=== PATIENT | male | born 2000 | race Caucasian/White ===

== ENCOUNTER 2020-08-16 11:16 | Emergency (ER) | payer MEDICAID, SELFPAY ==
--- NOTE | 2020-08-16 | CT_ITS ---
EXAMINATION: CT ABDOMEN AND PELVIS WITH CONTRAST CLINICAL INFORMATION: Periumbilical pain, nausea and vomiting diarrhea; history of Crohn's disease. COMPARISON: CT abdomen and pelvis dated 07/27/2009 TECHNIQUE: Multidetector volumetric images were obtained from the superior aspect of the liver through the pubic symphysis following administration 85 mL of Omnipaque 350 intravenous contrast. Sagittal and coronal reformatted images were obtained on the technologist's workstation. Oral contrast: No This CT examination was performed using dose optimization techniques as appropriate, variously including the following: *Automated exposure control *Adjustment of mA and/or kV according to patient size (this includes techniques or standardized protocols for targeted exams where dose is matched to indication/reason for exam; i.e. extremities or head) *Use of iterative reconstruction technique DLP: 296 mGy-cm FINDINGS: LUNG BASES: The visualized lung bases are unremarkable. LIVER, GALLBLADDER, AND BILIARY TREE: The liver is normal in size, shape, and attenuation. There is a Cari's lobe configuration. No focal hepatic lesion or biliary ductal dilatation is present. The gallbladder is unremarkable with no evidence of radiopaque gallstones, gallbladder wall thickening, or obvious pericholecystic inflammatory changes. PANCREAS: Unremarkable. SPLEEN: Unremarkable. ADRENAL GLANDS: Unremarkable. KIDNEYS AND URETERS: The kidneys are normal in size, shape, and attenuation. No hydronephrosis, hydroureter, or calculi seen. No perinephric stranding. BLADDER: Decompressed and otherwise unremarkable. GASTROINTESTINAL TRACT: There is wall thickening of a proximal small bowel bowel loop in the right upper quadrant. A nonobstructing small bowel intussusception is seen within the right abdomen (3:53, 5:35 and 6:91). There is mild wall thickening of the terminal ileum. No sameer obstruction or ileus is seen. There is no abscess or free intraperitoneal air. ABDOMINAL WALL: No significant hernia is appreciated. LYMPH NODES: There are multiple shotty, nonpathologically enlarged mesenteric lymph nodes. No sizable abdominopelvic lymphadenopathy is seen. VASCULAR: Unremarkable. PELVIC VISCERA: The prostate and seminal vesicles are unremarkable. There is a very small amount of free fluid within the pelvis. OSSEOUS STRUCTURES: Unremarkable. IMPRESSION: Consistent with the provided history of Crohn's disease, there is wall thickening of the terminal ileum and of a mid small bowel loop within the right abdomen. A nonobstructing small bowel intussusception associated with this focal mid small bowel wall thickening. No obstruction, ileus, abscess or free intraperitoneal air is seen. There are shotty, nonpathologically enlarged mesenteric lymph nodes. A small amount of free fluid is seen within the dependent pelvis.
[2020-08-16 11:31] VITALS: BP 104/51; PULSE 81; RESP 18; TEMP 36.7; O2SAT 98; BMI 17.6
[2020-08-16 12:00] VITALS: BP 108/62; PULSE 82; RESP 18; TEMP 36.8; O2SAT 98
[2020-08-16] MEDS: 0.9 % Sodium Chloride 1,000 ML 999 ML IVCONT (12:30)
[2020-08-16 12:51] LABS: MANUAL DIFF FLAG NO
[2020-08-16 13:02] LABS: Basophils Absolute Auto 0.1 X10*3/uL (0.0-0.2); Basophils Percent Auto 0.6 % (0-2); Eosinophils Absolute Auto 0.1 X10*3/uL (0.0-0.4); Eosinophils Percent Auto 1.4 % (0-4); Imm Gran Abs Auto 0.02 X10*3/uL (0.00-0.03); Imm Gran Pct Auto 0.2 % (0.0-0.4); Lymphocytes Absolute Auto 1.7 X10*3/uL (1.2-4.9); Lymphocytes Percent Auto 21.1 % (20-40); Mean Corpuscular Hemoglobin 28.4 pg (27.0-33.0); Mean Corpuscular Volume 86.1 fL (80-98); Monocytes Absolute Auto 0.8 X10*3/uL (0.1-1.2); Monocytes Percent Auto 9.9 % (2-11); Neutrophils Absolute Auto 5.4 X10*3/uL (2.0-8.3); Neutrophils Percent Auto 66.8 % (45-73); Platelet Count 383 X10*3/uL (160-400); Red Cell Distribution Width 12.1 % (11.0-16.0)
[2020-08-16] MEDS: Ketorolac Tromethamine 15 MG/ML VIAL IV ×2 (13:03→13:04)
[2020-08-16] MEDS: ondansetron HCL 4 MG/2 ML VIAL IVPUSH (13:04)
[2020-08-16 13:12] LABS: INTERNATIONAL NORM RATIO 1.2 (0.9-1.1)
[2020-08-16 13:27] LABS: Alanine Aminotransferase 6 U/L (0-40); Albumin Level 4.1 g/dL (3.5-5.0); Alkaline Phosphatase 60 U/L (39-117); Anion Gap 11 (12-20); Aspartate Amino Transferase 10 U/L (5-37); Bilirubin Direct < 0.2 mg/dL (0.0-0.5); Bilirubin Total 0.3 mg/dL (0.0-1.0); Blood Urea Nitrogen 14 mg/dL (9-16); Calcium 9.3 mg/dL (8.4-10.2); Carbon Dioxide 30 mmol/L (22-29); Chloride 103 mmol/L (96-108); Creatinine Clr Calc Pharmacy 106.2; Estimated Glomerular Filt Rate > 60; Glucose Random 82 mg/dL (60-115); Sodium 140 mmol/L (135-145); Total Protein 7.4 g/dL (6.5-8.0)
[2020-08-16] MEDS: iohexoL 350 MG/ML 100 ML INFUS..BTL IV (13:41)
[2020-08-16 13:50] LABS: Glucose Urine UA NEG (NEG); Leukocyte Esterase Urine NEG (NEG); Nitrite Urine NEG (NEG); Urine Blood NEG (NEG); Urine Ketones NEG (NEG); Urine Protein NEG (NEG-TRACE)
[2020-08-16 13:53] LABS: Appearance Urine CLEAR; Color Urine YELLOW
[2020-08-16 13:59] VITALS: BP 115/62; PULSE 84; TEMP 36.8; O2SAT 100
[2020-08-16 14:04] LABS: Mucus Urine 2+ /LPF; RBC Urine 0 /HPF (0); Squamous Epithelial Cell Urine 1+ /LPF; WBC Urine 0 /HPF (0-4)
--- NOTE | 2020-08-16 14:07 | ED_ITS ---
HPI - Abdominal Pain General Chief Complaint: Abdominal Pain Stated Complaint: abd pain diarrhea Time Seen by Provider: 08/16/20 11:51 Source: patient Mode of arrival: ambulatory Limitations: no limitations History of Present Illness HPI narrative: 19yoM c PMHx of Crohn's disease presenting to the ED c c/o periumbilical abdominal pain with associated nausea /vomiting / diarrhea for approximately 1 week with associated weight loss and decreased appetite. Reports she stopped receiving her Remicade infusions by Dr. romo her GI specialist due to she wants a new GI specialist. Denies any fevers, cough, CP/SOB, back pain, hematuria, dysuria or abnormal discharge. Related Data Previous Rx's Medication Instructions Recorded ondansetron HCl [Zofran] 4 mg PO Q8H PRN #10 tab 08/16/20 oxycodone-acetaminophen [Percocet] 1 tab PO Q6H PRN #10 tab 08/16/20 prednisone 40 mg PO DAILY 5 Days #10 tab 08/16/20 Allergies Allergy/AdvReac Type Severity Reaction Status Date / Time peach [PEACH] Allergy Severe ITCHY Unverified 07/25/20 16:52 THROAT pear [PEAR] Allergy Severe ITCHY Unverified 07/25/20 16:52 THROAT plum [PLUM] Allergy Severe ITCHY Unverified 07/25/20 16:52 THROAT apples Allergy Unknown Uncoded 11/24/13 00:00 peaches Allergy Unknown Uncoded 11/24/13 00:00 pears Allergy Unknown Uncoded 11/24/13 00:00 plums Allergy Unknown Uncoded 11/24/13 00:00 seasonal Allergy Unknown Uncoded 11/24/13 00:00 Review of Systems Review of Systems Yes all other systems are reviewed and are negative Constitutional: Reports as per HPI, Denies anorexia, Denies body ache(s), Denies chills, Denies fatigue, Denies fever(s), Denies headache(s), Denies poor appetite, Denies weakness, Denies weight gain and Reports weight loss Eyes: Reports as per HPI Reports as per HPI, Denies dizziness, Denies headache(s) and Denies neck pain Cardiovascular: Reports as per HPI, Denies chest pain and Denies dyspnea Respiratory: Reports as per HPI, Denies cough and Denies dyspnea Gastrointestinal: Reports as per HPI, Reports abdominal pain, Denies melena, Denies hematochezia, Denies coffee ground emesis, Denies constipation, Reports diarrhea, Denies loose stools, Reports nausea, Reports vomiting and Denies hematemesis Genitourinary: Reports as per HPI, Denies hematuria, Denies difficulty urinating, Denies genital lesions, Denies genital pain, Denies flank pain, Denies urinary frequency, Denies urinary hesitancy and Denies urinary urgency Musculoskeletal: Reports as per HPI, Denies neck pain, Denies numbness and Denies tingling Skin/Breast: Reports as per HPI Reports as per HPI, Denies dizziness, Denies headache(s), Denies numbness, Denies tingling and Denies weakness Psychiatric: Reports as per HPI Endocrine: Reports as per HPI and Denies fatigue Hematologic/Lymphatic: Reports as per HPI Allergic/Immunologic: Reports as per HPI Physical Exam Vital Signs and I&O and Narrative: Vital Signs and I&O: Vital Signs Temp 98.2 F 08/16/20 13:59 Pulse 84 08/16/20 13:59 Resp 18 08/16/20 12:00 BP 115/62 08/16/20 13:59 Pulse Ox 100 08/16/20 13:59 Intake & Output 08/15/20 08/16/20 08/16/20 18:59 06:59 18:59 Intake Total 1000 / 1000 Balance 1000 / 1000 Weight 51.219 kg Intake: Intake, IV Amoun t 1000 / 1000 0.9 % Sodium C hloride 1,000 ml 1000 / 1000 @ 999 mls/hr I VCONT .Q1H1M [facility] Rx#:[id number] Body Mass Index 17.6 Const: General: cooperative, healthy appearing, comfortable, no acute distress, well developed, alert, awake and Physically active Nutritional Appearance: average body habitus and well nourished Orientation/consciousness: patient oriented x3 Limitations: no limitations HENMT: Head: Yes normal to inspection, Yes No palpable skull fracture present, Yes normocephalic and Yes atraumatic Ears: hearing grossly normal bilaterally General nose exam: Normal external nose present Face and sinus : Yes normal facial exam Mouth: moist mucous membranes Eyes: General: appearance normal, both eyes and all related structures Visual Hayden: normal visual hayden by confrontation Alignment and Position: alignment normal Periorbital: periorbital findings normal Eyelids: Yes eyelids normal Conjunctivae: conjunctivae normal Sclerae: sclerae normal Pupils: Equal, round and reactive pupils present EOM: EOMs intact bilaterally Neck: Neck: Yes normal visual inspection, Yes full ROM, Yes no lymphadenopathy, Yes no meningeal signs, Yes trachea midline and Yes supple Chest: Chest palpation & inspection: normal inspection of the chest Resp: Effort & Inspection: normal respiratory effort and able to speak in complete sentences Auscultation: clear to auscultation bilaterally, no crackles, no rales, no rhonchi and no wheezes Cardio: Rate: regular rate Rhythm: regular rhythm Heart sounds: S1 normal heart sound present and S2 normal heart sound present Peripheral pulses: Peripheral pulses 2+ throughout GI: Inspection: Yes normal to inspection Palpation (GI): Soft to palpation, nontender (PeriUmbilical aspect) and No hepatosplenomegaly present Percussion: Yes normal to percussion Auscultation: normal bowel sounds : General: Yes no CVA tenderness Back/Spine/Pelvis: Back: no CVA tenderness Cervical Spine: normal cervical lordosis and cervical ROM normal Thoracic/Lumbar Spine: thoracic and lumbar spine normal to inspection and thoraco-lumbar ROM normal Skin: General skin exam: no rashes or lesions noted, elasticity normal and turgor normal Trauma: no lacerations or abrasions Wounds: no wounds Hair: normal Nails: normal Neuro: General: patient oriented x3 and no meningeal signs Cranial nerves: Yes CN's II-XII intact bilaterally and Yes Equal, round and reactive pupils present Cognition (Neuro): normal cognition Gait exam (Neuro): Normal gait present Motor exam (neuro): 5/5 motor strength present throughout Extrem: General: Yes normal to inspection, Yes full ROM, Yes capillary refill normal, Yes no clubbing, cyanosis or edema, No no pedal edema, No no calf tenderness, Yes normal gait and No edema Right upper extremity: normal to inspection, full ROM and normal capillary refill; no edema Left upper extremity: normal to inspection, full ROM and normal capillary refill; no edema Right lower extremity: normal to inspection, full ROM and normal capillary refill; no edema Left lower extremity: normal to inspection, full ROM and normal capillary refill; no edema Psych: Appearance: grossly normal and well kempt Mental Status: mental status grossly normal Speech and movement: Normal speech and movement present and Clear speech present Affect: normal affect Attitude: cooperative T hought process: Normal thought process present Thought content: Normal thought content present Insight: Good insight present (Psych) Judgement: Good judgement present (Psych) Course Course Course Narrative: Labs within normal limits. CT scan consistent with Crohn's disease no signs of obstruction therefore will DC home with referral to Dr. Brandt along with symptomatic treatment and start her on a short course of steroids instructions return if any new or worsening symptoms. Patient understands agrees with this plan. MDM - Abdominal Pain MDM Narrative Medical decision making narrative: 19yoM c PMHx of Crohn's disease presenting to the ED c c/o periumbilical abdominal pain with associated nausea /vomiting / diarrhea for approximately 1 week with associated weight loss and decreased appetite. Reports she stopped receiving her Remicade infusions by Dr. romo her GI specialist due to she wants a new GI specialist. Denies any fevers, cough, CP/SOB, back pain, hematuria, dysuria or abnormal discharge. - Concern for Crohn's versus perforation vs Bowel obstruction - Plan: Labs, CT scan of abd/pelvis c IV contrast. Provide IVF's, 15mg of toradol and 4 mg of zofran then re-evaluated. Lab Data Result diagrams: 08/16/20 12:42 08/16/20 12:42 Labs: Lab Results 08/16/20 08/16/20 08/16/20 Range/Units 12:42 12:42 12:42 WBC 8.0 (4.8-10.8) X10*3/uL RBC 4.16 L (4.60-5.80) X10*6/uL Hgb 11.8 L (14.0-18.0) g/dl Hct 35.8 L (42-52) % MCV 86.1 (80-98) fL MCH 28.4 (27.0-33.0) pg MCHC 33.0 (31.0-36.0) g/dl RDW 12.1 (11.0-16.0) % Plt Count 383 (160-400) X10*3/uL MPV 9.9 (9.4-12.4) fL Immature Gran % (Auto) 0.2 (0.0-0.4) % Neut % (Auto) 66.8 (45-73) % Lymph % (Auto) 21.1 (20-40) % Merrick % (Auto) 9.9 (2-11) % Eos % (Auto) 1.4 (0-4) % Baso % (Auto) 0.6 (0-2) % Lymph # (Auto) 1.7 (1.2-4.9) X10*3/uL Merrick # (Auto) 0.8 (0.1-1.2) X10*3/uL Eos # (Auto) 0.1 (0.0-0.4) X10*3/uL Baso # (Auto) 0.1 (0.0-0.2) X10*3/uL Abs Immat Gran (auto) 0.02 (0.00-0.03) X10*3/uL Absolute Neuts (auto) 5.4 (2.0-8.3) X10*3/uL Absolute Nucleated RBC 0.000 (0.0-0.012) X10*3/uL Nucleated RBC % (auto) 0.0 (0.0-0.2) /100WBC PT 14.0 H (10.8-13.0) SEC INR 1.2 H (0.9-1.1) Sodium 140 (135-145) mmol/L Potassium 4.0 (3.3-5.1) mmol/l Chloride 103 (96-108) mmol/L Carbon Dioxide 30 H (22-29) mmol/L Anion Gap 11 L (12-20) BUN 14 (9-16) mg/dL Creatinine 0.81 (0.5-1.4) mg/dL Estim Creat Clear Calc 106.2 Estimated GFR > 60 Random Glucose 82 (60-115) mg/dL Calcium 9.3 (8.4-10.2) mg/dL Total Bilirubin 0.3 (0.0-1.0) mg/dL Direct Bilirubin < 0.2 (0.0-0.5) mg/dL AST 10 (5-37) U/L ALT 6 (0-40) U/L Alkaline Phosphatase 60 (39-117) U/L Total Protein 7.4 (6.5-8.0) g/dL Albumin 4.1 (3.5-5.0) g/dL Urine Color Urine Appearance Urine pH (5.0-8.0) Ur Specific [place] (1.005-1.025) Urine Protein (NEG-TRACE) MG/DL Urine Glucose (UA) (NEG) MG/DL Urine Ketones (NEG) MG/DL Urine Blood (NEG) Urine Nitrite (NEG) Ur Leukocyte Esterase (NEG) Urine RBC (0) /HPF Urine WBC (0-4) /HPF Ur Squamous Epith Cells /LPF Urine Bacteria /LPF Urine Mucus /LPF 08/16/20 Range/Units 13:22 WBC (4.8-10.8) X10*3/uL RBC (4.60-5.80) X10*6/uL Hgb (14.0-18.0) g/dl Hct (42-52) % MCV (80-98) fL MCH (27.0-33.0) pg MCHC (31.0-36.0) g/dl RDW (11.0-16.0) % Plt Count (160-400) X10*3/uL MPV (9.4-12.4) fL Immature Gran % (Auto) (0.0-0.4) % Neut % (Auto) (45-73) % Lymph % (Auto) (20-40) % Merrick % (Auto) (2-11) % Eos % (Auto) (0-4) % Baso % (Auto) (0-2) % Lymph # (Auto) (1.2-4.9) X10*3/uL Merrick # (Auto) (0.1-1.2) X10*3/uL Eos # (Auto) (0.0-0.4) X10*3/uL Baso # (Auto) (0.0-0.2) X10*3/uL Abs Immat Gran (auto) (0.00-0.03) X10*3/uL Absolute Neuts (auto) (2.0-8.3) X10*3/uL Absolute Nucleated RBC (0.0-0.012) X10*3/uL Nucleated RBC % (auto) (0.0-0.2) /100WBC PT (10.8-13.0) SEC INR (0.9-1.1) Sodium (135-145) mmol/L Potassium (3.3-5.1) mmol/l Chloride (96-108) mmol/L Carbon Dioxide (22-29) mmol/L Anion Gap (12-20) BUN (9-16) mg/dL Creatinine (0.5-1.4) mg/dL Estim Creat Clear Calc Estimated GFR Random Glucose (60-115) mg/dL Calcium (8.4-10.2) mg/dL Total Bilirubin (0.0-1.0) mg/dL Direct Bilirubin (0.0-0.5) mg/dL AST (5-37) U/L ALT (0-40) U/L Alkaline Phosphatase (39-117) U/L Total Protein (6.5-8.0) g/dL Albumin (3.5-5.0) g/dL Urine Color YELLOW Urine Appearance CLEAR Urine pH 7.0 (5.0-8.0) Ur Specific Acton 1.020 (1.005-1.025) Urine Protein NEG (NEG-TRACE) MG/DL Urine Glucose (UA) NEG (NEG) MG/DL Urine Ketones NEG (NEG) MG/DL Urine Blood NEG (NEG) Urine Nitrite NEG (NEG) Ur Leukocyte Esterase NEG (NEG) Urine RBC 0 (0) /HPF Urine WBC 0 (0-4) /HPF Ur Squamous Epith Cells 1+ /LPF Urine Bacteria NONE /LPF Urine Mucus 2+ /LPF Discharge Plan Discharge Clinical Impression: Crohn's disease Patient Disposition: Home, Self-Care Instructions: Crohn Disease (ED) Prescriptions: New oxycodone-acetaminophen [Percocet] 5-325 mg tablet 1 tab PO Q6H PRN (Reason: pain) Qty: 10 RF: 0 prednisone 20 mg tablet 40 mg PO DAILY 5 Days Qty: 10 RF: 0 ondansetron HCl [Zofran] 4 mg tablet 4 mg PO Q8H PRN (Reason: nausea and vomiting) Qty: 10 RF: 0 Referrals: Ariadna Tristan MD [Primary Care Provider] - Cindy Brandt MD [Physician] - 2 days Stand Alone Forms: Work/School Release Print Language: Tamazight [facility] Past Medical History Medical History Crohn's disease Surgical History History of colonoscopy Social History Social History Alcohol intake: current Alcohol intake frequency: holidays/special occasions only Smoking Status: Never smoker Use of substances other than those prescribed or required for medical reasons: No Advance Directives: No Advance Directives Information Provided: No
[2020-08-16 16:13] VITALS: BP 107/68; PULSE 88; RESP 16; TEMP 37.7; O2SAT 99
[2021-10-21 13:14] LABS: Hemoglobin 11.8 g/dl (12.0-16.0); Red Blood Count 4.16 X10*6/uL (4.20-5.50)
[2021-10-21 13:15] LABS: Hematocrit 35.8 % (37-47); Mean Platelet Volume 9.9 fL (9.4-12.3)
== END 2020-08-16 16:14 | disposition home or self-care (01) ==
PROVIDERS: Physician Assistant Medical; Emergency Provider Internal Medicine; PCP Family Medicine
DX: R10.9 Unspecified abdominal pain (principal); R19.7 Diarrhea, unspecified
CPT/HCPCS: 36415; 74177; 80048; 80076; 81001; 85025; 85610; 96361; 96374; 96375; 99284; J1885; J2405

== ENCOUNTER → 2020-08-27 14:02 | Outpatient (BNVA) | payer MEDICAID, SELFPAY | PROVIDERS: PCP Family Medicine; Referring Provider Family Medicine; Visit Provider Internal Medicine Gastroenterology | DX: K50.80 Crohn's disease of both small and large intestine without complications (principal) | CPT/HCPCS: 99204 ==

== ENCOUNTER 2020-08-29 15:47 | Outpatient (REF) | payer MEDICAID, SELFPAY | END 2020-08-29 15:48 | disposition home or self-care (01) | LOC: HO.LAB 15:47 | PROVIDERS: PCP Family Medicine; Visit Provider Internal Medicine Gastroenterology | DX: Z13.89 Encounter for screening for other disorder (principal) ==

== ENCOUNTER 2020-09-03 17:16 | Outpatient (REF) | payer MEDICAID, SELFPAY ==
[2020-09-03 18:05] LABS: MANUAL DIFF FLAG NO
[2020-09-03 18:07] LABS: Basophils Absolute Auto 0.1 X10*3/uL (0.0-0.2); Basophils Percent Auto 0.6 % (0-2); Eosinophils Absolute Auto 0.1 X10*3/uL (0.0-0.4); Eosinophils Percent Auto 0.5 % (0-4); Imm Gran Abs Auto 0.03 X10*3/uL (0.00-0.03); Imm Gran Pct Auto 0.3 % (0.0-0.4); Lymphocytes Absolute Auto 1.7 X10*3/uL (1.2-4.9); Lymphocytes Percent Auto 17.3 % (20-40); Mean Corpuscular Hemoglobin 27.7 pg (27.0-33.0); Mean Corpuscular Volume 85.3 fL (80-98); Monocytes Absolute Auto 0.6 X10*3/uL (0.1-1.2); Monocytes Percent Auto 5.6 % (2-11); Neutrophils Absolute Auto 7.6 X10*3/uL (2.0-8.3); Neutrophils Percent Auto 75.7 % (45-73); Platelet Count 450 X10*3/uL (160-400); Red Cell Distribution Width 12.5 % (11.0-16.0)
[2020-09-03 18:42] LABS: Albumin Level 4.1 g/dL (3.5-5.0); Alkaline Phosphatase 63 U/L (39-117); Anion Gap 15 (12-20); Bilirubin Total 0.3 mg/dL (0.0-1.0); Blood Urea Nitrogen 16 mg/dL (9-16); C Reactive Protein 9.45 mg/dL (< or = 0.50); Calcium 9.2 mg/dL (8.4-10.2); Carbon Dioxide 27 mmol/L (22-29); Chloride 102 mmol/L (96-108); Estimated Glomerular Filt Rate > 60; Glucose Random 128 mg/dL (60-115); Sodium 140 mmol/L (135-145); Total Protein 7.8 g/dL (6.5-8.0)
[2020-09-03 18:59] LABS: Vitamin B12 855 pg/mL (200-900)
[2020-09-04 08:46] LABS: HBsAGNum1 0.11 S/CO (0.00-0.99); HIV AB/AG Nonreactive (Nonreactive); HIV Num 1 0.27 S/CO (0.00-0.99); Hepatitis B Surface Antigen Negative (Negative)
[2020-09-04 09:29] LABS: HBc Num1 0.09 S/CO (0.00-0.79); Hepatitis B Core Antibody Nonreactive (Nonreactive); ~HepC Num1 0.33 S/CO (0.00-0.79); ~Hepatitis A Antibody IgM Nonreactive (Nonreactive); ~Hepatitis C Antibody Nonreactive (Nonreactive)
[2020-09-04 11:19] LABS: HBS Num3 11.05 mIU/mL (0-7.99); ~Hepatitis B Surface Antibody GRAYZONE (Nonreactive)
[2020-09-07 15:27] LABS: Nicotinamide <20 ng/mL; Vit B3 - Nicotinic Acid <20 ng/mL
[2020-09-08 13:36] LABS: Vitamin B1 12 nmol/L (8-30)
[2020-09-08 14:21] LABS: Vitamin B6 9.8 ng/mL (2.1-21.7)
[2020-09-08 17:27] LABS: Zinc 58 mcg/dL (60-130)
[2020-09-09 13:16] LABS: Vitamin B5 (Pantothenic Acid) 41 ng/mL (<275)
[2020-09-11 21:48] LABS: Vitamin A 29 mcg/dL (26-72)
[2021-10-21 13:24] LABS: Erythrocyte Sedimentation Rate 83 MM/HR (0-20)
[2021-10-21 13:25] LABS: Hematocrit 36.7 % (37-47); Hemoglobin 11.9 g/dl (12.0-16.0)
[2021-10-21 13:26] LABS: Mean Corpuscular HGB Conc 32.4 g/dl (31.0-35.0); Mean Platelet Volume 10.2 fL (9.4-12.3)
[2021-10-21 13:28] LABS: Alanine Aminotransferase < 6 U/L (0-31); Aspartate Amino Transferase 11 U/L (5-31)
== END 2020-09-03 17:17 | disposition home or self-care (01) ==
LOC: HO.LAB 17:16
PROVIDERS: PCP Family Medicine; Visit Provider Internal Medicine Gastroenterology
DX: K50.90 Crohn's disease, unspecified, without complications (principal)
CPT/HCPCS: 36415; 80053; 82607; 84207; 84425; 84590; 84591; 84630; 85025; 85652; 86140; 86704; 86706; 86709; 86803; 87340; 87389

== ENCOUNTER → 2020-09-19 12:57 | Outpatient (BNVA) | payer MEDICAID, SELFPAY | PROVIDERS: PCP Family Medicine; Referring Provider Family Medicine; Visit Provider Internal Medicine Gastroenterology | DX: Z76.89 Persons encountering health services in other specified circumstances (principal) ==

== ENCOUNTER → 2020-09-19 12:57 | Outpatient (BNVA) | payer MEDICAID, SELFPAY | PROVIDERS: PCP Family Medicine; Referring Provider Family Medicine; Visit Provider Internal Medicine Gastroenterology | DX: K50.80 Crohn's disease of both small and large intestine without complications (principal); Z79.899 Other long term (current) drug therapy | CPT/HCPCS: 99212 ==

== ENCOUNTER → 2020-11-18 09:21 | Outpatient (BNVA) | payer MEDICAID, SELFPAY | PROVIDERS: PCP Family Medicine; Visit Provider Internal Medicine Gastroenterology | DX: Z76.89 Persons encountering health services in other specified circumstances (principal) ==

== ENCOUNTER 2020-12-06 11:46 | Outpatient (REF) | payer MEDICAID, SELFPAY ==
[2020-12-06 12:46] LABS: MANUAL DIFF FLAG NO
[2020-12-06 12:55] LABS: Basophils Percent Auto 0.6 % (0-2); Eosinophils Absolute Auto 0.1 X10*3/uL (0.0-0.4); Eosinophils Percent Auto 1.4 % (0-4); Hematocrit 38.8 % (42-52); Hemoglobin 12.7 g/dl (14.0-18.0); Imm Gran Abs Auto 0.01 X10*3/uL (0.00-0.03); Imm Gran Pct Auto 0.2 % (0.0-0.4); Mean Corpuscular HGB Conc 32.7 g/dl (31.0-36.0); Mean Corpuscular Hemoglobin 28.2 pg (27.0-33.0); Monocytes Absolute Auto 0.4 X10*3/uL (0.1-1.2); Monocytes Percent Auto 6.8 % (2-11); Platelet Count 349 X10*3/uL (160-400); Red Blood Count 4.51 X10*6/uL (4.60-5.80); Red Cell Distribution Width 13.8 % (11.0-16.0); White Blood Count 6.5 X10*3/uL (4.8-10.8)
[2020-12-06 13:47] LABS: Alanine Aminotransferase 8 U/L (0-40); Albumin Level 4.2 g/dL (3.5-5.0); Alkaline Phosphatase 70 U/L (39-117); Anion Gap 14 (12-20); Aspartate Amino Transferase 15 U/L (5-37); Bilirubin Total 0.4 mg/dL (0.0-1.0); Blood Urea Nitrogen 13 mg/dL (9-16); Calcium 9.5 mg/dL (8.4-10.2); Carbon Dioxide 27 mmol/L (22-29); Chloride 102 mmol/L (96-108); Estimated Glomerular Filt Rate > 60; Glucose Random 71 mg/dL (60-115); Potassium 4.4 mmol/L (3.3-5.1); Sodium 139 mmol/L (135-145); Total Protein 7.8 g/dL (6.5-8.0)
[2020-12-09 16:07] LABS: TS Negative Control Passed; TS Panel A 0; TS Panel B 0; TS Positive Control Passed; TSpotTB Negative (SeeBelow)
[2020-12-10 13:37] LABS: Zinc 70 mcg/dL (60-130)
== END 2020-12-06 11:47 | disposition home or self-care (01) ==
LOC: HO.LAB 11:46
PROVIDERS: PCP Family Medicine; Visit Provider Internal Medicine Gastroenterology
DX: K50.90 Crohn's disease, unspecified, without complications (principal)
CPT/HCPCS: 36415; 80053; 84630; 85025; 86140; 86481

== ENCOUNTER 2020-12-21 14:25 | Emergency (ER) | payer MEDICAID, SELFPAY ==
[2020-12-21 14:59] VITALS: BP 101/65; PULSE 87; RESP 16; TEMP 36.6; O2SAT 100; BMI 19.5
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
== END 2020-12-21 15:49 | disposition home or self-care (01) ==
PROVIDERS: Emergency Provider Emergency Medicine Emergency Medical Services; PCP Family Medicine
DX: S00.05XA Superficial foreign body of scalp, initial encounter (principal); X58.XXXA Exposure to other specified factors, initial encounter; Y93.E1 Activity, personal bathing and showering; Y92.012 Bathroom of single-family (private) house as the place of occurrence of the external cause; Y99.9 Unspecified external cause status
CPT/HCPCS: 99283

== ENCOUNTER → 2020-12-31 11:24 | Outpatient (BNVA) | payer MEDICAID, SELFPAY | PROVIDERS: PCP Family Medicine; Visit Provider Internal Medicine Gastroenterology ==

== ENCOUNTER 2021-02-12 22:02 | Emergency (ER) | payer MEDICAID, SELFPAY ==
[2021-02-12 22:22] VITALS: BP 91/54; PULSE 95; RESP 18; TEMP 36.8; O2SAT 99; BMI 18.8
== END 2021-02-12 23:33 | disposition left against medical advice (07) ==
PROVIDERS: Emergency Provider Emergency Medicine; PCP Family Medicine
DX: S50.312A Abrasion of left elbow, initial encounter (principal); W01.0XXA Fall on same level from slipping, tripping and stumbling without subsequent striking against object, initial encounter; Y93.51 Activity, roller skating (inline) and skateboarding; Y92.480 Sidewalk as the place of occurrence of the external cause; Y99.9 Unspecified external cause status
CPT/HCPCS: 99281; 99282

== ENCOUNTER → 2021-02-25 08:56 | Outpatient (BNVA) | payer MEDICAID, SELFPAY | PROVIDERS: PCP Family Medicine; Visit Provider Internal Medicine Gastroenterology ==

== ENCOUNTER 2021-07-16 19:22 | Emergency (ER) | payer MEDICAID, SELFPAY ==
[2021-07-16 20:00] VITALS: BP 114/52; PULSE 101; RESP 20; TEMP 38.3; O2SAT 99; BMI 18.8
[2021-07-16 22:00] VITALS: BP 114/57; PULSE 100; RESP 18; TEMP 38.2; O2SAT 99
--- NOTE | 2021-07-16 22:01 | ED.URI ---
HPI - URI/Sore Throat General Chief Complaint: Upper Respiratory Symptoms Stated Complaint: Sore throat/Fever Time Seen by Provider: 07/16/21 20:21 Source: patient Mode of arrival: ambulatory History of Present Illness HPI Narrative: 20-year-old male with past medical history of Crohn's presenting to the ED complaining of sore throat, fever, myalgias, nausea, lightheadedness, and mild dry cough since yesterday. Denies CP/SOB, recent travel, sick contacts, vomiting Related Data Previous Rx's Medication Instructions Recorded ondansetron HCl 4 mg tablet 4 mg PO Q8H PRN #10 tab 08/16/20 (Zofran) oxycodone-acetaminophen 5 mg-325 1 tab PO Q6H PRN #10 tab 08/16/20 mg tablet (Percocet) prednisone 20 mg tablet 40 mg PO DAILY 5 Days #10 tab 08/16/20 prednisone 5 mg tablet See Rx Instructions PO DAILY #168 08/27/20 tab adalimumab 40 mg/0.4 mL 40 mg SUBCUT Q2W 28 Days #2 ea 05/28/21 subcutaneous pen kit (Humira(CF) Pen) acetaminophen 500 mg tablet 500 mg PO Q6H PRN #20 tab 07/16/21 (Tylenol Extra Strength) amoxicillin 875 mg-potassium 1 tab PO Q12H 7 Days #14 tab 07/16/21 clavulanate 125 mg tablet (Augmentin) ibuprofen 400 mg tablet 400 mg PO Q6H 7 Days #28 tab 07/16/21 ondansetron HCl 4 mg tablet 4 mg PO Q8H PRN #10 tab 07/16/21 (Zofran) Allergies Allergy/AdvReac Type Severity Reaction Status Date / Time peach [PEACH] Allergy Severe ITCHY Verified 02/25/21 08:58 THROAT pear [PEAR] Allergy Severe ITCHY Verified 02/25/21 08:58 THROAT plum [PLUM] Allergy Severe ITCHY Verified 02/25/21 08:58 THROAT apples Allergy Mild itchy Uncoded 12/31/20 11:25 throat seasonal Allergy Unknown runny nose Uncoded 12/31/20 11:25 Review of Systems Review of Systems: Constitutional: +Fever, No Chills, + malaise,+ fatigue ENT/Mouth: No Ear Pain, No Nasal Congestion, No Sinus Pain, No Hoarseness, + sore throat, No Rhinorrhea, No Swallowing Difficulty Cardiovascular: No Chest Pain, No SOB Respiratory: + Cough, No Sputum, No Wheezing Gastrointestinal: + Nausea, No Vomiting, No Diarrhea, No Constipation, No Abdominal pain Genitourinary:No Dysuria, No Urinary Frequency, No Hematuria, No Flank Pain Musculoskeletal: No joint pain, + Myalgias, No Joint Swelling Skin: No Skin Lesions, No rash Neuro: No Weakness, No Numbness, No Paresthesias Yes all other systems are reviewed and are negative FORMERLY [facility], [facility]–1983 Past Medical History Attestation statement: The following information was validated with the patient. Medical History Crohn's disease Surgical History History of colonoscopy History of colonoscopy Hx of endoscopy Family History Family History Father Alive and well Mother Alive and well Social History Social History Household Members: Family Alcohol intake: current Alcohol intake frequency: does not drink Advance Directives: No Advance Directives Information Provided: Yes Physical Exam Vital Signs: Vital Signs: Last Vital Signs Temp 100.7 F H 07/16/21 22:00 Pulse 100 07/16/21 22:00 Resp 18 07/16/21 22:00 BP 114/57 L 07/16/21 22:00 Pulse Ox 99 07/16/21 22:00 Body Mass Index 18.8 Const: General: cooperative and healthy appearing Orientation/consciousness: patient oriented x3 Limitations: no limitations HENMT: Head: Yes normal to inspection Ears: hearing grossly normal bilaterally General nose exam: Normal external nose present Face and sinus: Yes normal facial exam Mouth: no drooling Throat: Yes uvula midline, Yes abnormal tonsil (Bilateral tonsillar erythema, swelling, and exudates), No peritonsillar mass and No uvular edema Eyes: General: appearance normal, both eyes and all related structures EOM: EOMs intact bilaterally Neck: Neck: Yes normal visual inspection and Yes supple Resp: Effort & Inspection: normal respiratory effort and no respiratory distress Cardio: Rate: regular rate Skin: Rashes: no rashes Wounds: no wounds Neuro: General: patient oriented x3 Gait exam (Neuro): Normal gait present Extrem: General: Yes normal to inspection Course Course Course Narrative: -2320--COVID-19/influenza/RSV negative. Rapid strep negative. > Results discussed including worrisome signs and symptoms and strict return precautions. Patient will be given 1st dose of Augmentin in the ED for strep pharyngitis, he verbalized understanding & feels safe for discharge home MDM - URI/Sore Throat MDM Narrative Medical decision making narrative: 20-year-old male with past medical history of Crohn's presenting to the ED complaining of sore throat, fever, myalgias, nausea, lightheadedness, and mild dry cough since yesterday. On exam febrile, tachycardic likely from fever, NAD/nontoxic-appearing, physical exam consistent with strep pharyngitis. Continue concern for also viral syndrome/COVID-19 Plan: COVID-19 testing, rapid strep, Tylenol, reassessed Medical Records Attestation: I reviewed the patient's medical records. Lab Data Labs: Lab Results 07/16/21 07/16/21 Range/Units 22:09 22:09 Coronavirus (PCR) NEGATIVE (Negative) Influenza Type A (PCR) NEGATIVE (Negative) Influenza Type B (PCR) NEGATIVE (Negative) RSV RNA Qual (PCR) NEGATIVE (Negative) S. pyogenes GrpA CARLYLE Negative (Negative) Discharge Plan Discharge Clinical Impression: Pharyngitis Qualifiers: Pharyngitis/tonsillitis etiology: streptococcus Qualified Code(s): J02.0 - Streptococcal pharyngitis Patient Disposition: Home, Self-Care Instructions: Pharyngitis (ED) Additional Instructions: You tested negative for COVID-19, the flu, and RSV Your rapid strep was also negative however you clinically have strep throat, thus Augmentin is an antibiotic, take as prescribed Continue to take Tylenol and ibuprofen at home for fever and body aches Rest, stay hydrated Zofran is an antinausea, take as needed Follow-up with her primary care doctor Your symptoms persist or worsen, you have fevers unresolved with medications, you are unable to eat or drink, developed cough, chest pain, or shortness of breath please return to the ED Prescriptions: New acetaminophen [Tylenol Extra Strength] 500 mg tablet 500 mg PO Q6H PRN (Reason: pain or fever) Qty: 20 RF: 0 ibuprofen 400 mg tablet 400 mg PO Q6H 7 Days Qty: 28 RF: 0 amoxicillin-pot clavulanate [Augmentin] 875-125 mg tablet 1 tab PO Q12H 7 Days Qty: 14 RF: 0 ondansetron HCl [Zofran] 4 mg tablet 4 mg PO Q8H PRN (Reason: nausea and vomiting) Qty: 10 RF: 0 No Action Humira(CF) Pen 40 mg/0.4 mL pen injector kit 40 mg subcut Q2W 28 Days Qty: 2 RF: 3 oxycodone-acetaminophen [Percocet] 5-325 mg tablet 1 tab PO Q6H PRN (Reason: pain) Qty: 10 RF: 0 prednisone 20 mg tablet 40 mg PO DAILY 5 Days Qty: 10 RF: 0 ondansetron HCl [Zofran] 4 mg tablet 4 mg PO Q8H PRN (Reason: nausea and vomiting) Qty: 10 RF: 0 prednisone 5 mg tablet See Rx Instructions PO DAILY Qty: 168 RF: 0 Referrals: Ariadna Tristan MD [Primary Care Provider] - 3 days
[2021-07-16 22:28] LABS: Strep A Nucleic Acid Negative (Negative)
[2021-07-16 22:56] LABS: Influenza A PCR NEGATIVE (Negative); Influenza B PCR NEGATIVE (Negative); Resp Syncy Virus RNA Qual PCR NEGATIVE (Negative); SARS COV2 PCR INHOUSE NEGATIVE (Negative)
[2021-07-16 23:29] VITALS: BP 108/60; PULSE 104; RESP 19; TEMP 37.6; O2SAT 100
[2021-07-16] MEDS: Amoxicillin/Potassium Clav 875 MG TABLET PO (23:33)
[2021-07-16] MEDS: Ibuprofen 400 MG TABLET PO (23:33)
[2021-07-16] MEDS: Ondansetron ODT 4 MG TAB.RAPDIS TRANSLINGU (23:34)
[2021-07-16] MEDS: Acetaminophen 325 MG TABLET 650 MG PO (23:34)
== END 2021-07-16 23:45 | disposition home or self-care (01) ==
PROVIDERS: Physician Assistant; Emergency Provider Internal Medicine; PCP Family Medicine
DX: R50.9 Fever, unspecified (principal); J02.0 Streptococcal pharyngitis; Z20.822 Contact with and (suspected) exposure to COVID-19; Z79.899 Other long term (current) drug therapy
CPT/HCPCS: 0241U; 36415; 87651; 99283; 99284

== ENCOUNTER → 2021-08-21 11:22 | Outpatient (BNVA) | payer MEDICAID, SELFPAY | PROVIDERS: PCP Family Medicine; Referring Provider Family Medicine; Visit Provider Internal Medicine Gastroenterology | DX: K50.90 Crohn's disease, unspecified, without complications (principal); K21.9 Gastro-esophageal reflux disease without esophagitis | CPT/HCPCS: 99212 ==

== ENCOUNTER 2021-09-05 13:26 | Outpatient (REF) | payer MEDICAID, SELFPAY ==
[2021-09-05 13:45] LABS: MANUAL DIFF FLAG NO
[2021-09-05 14:02] LABS: Basophils Absolute Auto 0.1 X10*3/uL (0.0-0.2); Basophils Percent Auto 0.9 % (0-2); Eosinophils Absolute Auto 0.1 X10*3/uL (0.0-0.4); Eosinophils Percent Auto 1.7 % (0-4); Hematocrit 37.3 % (37-47); Hemoglobin 12.3 g/dl (12.0-16.0); Imm Gran Abs Auto 0.01 X10*3/uL (0.00-0.03); Imm Gran Pct Auto 0.2 % (0.0-0.4); Lymphocytes Absolute Auto 2.2 X10*3/uL (1.2-4.9); Lymphocytes Percent Auto 33.5 % (20-40); Mean Corpuscular Hemoglobin 28.6 pg (27.0-33.0); Mean Corpuscular Volume 86.7 fL (80-98); Mean Platelet Volume 10.7 fL (9.4-12.3); Monocytes Absolute Auto 0.4 X10*3/uL (0.1-1.2); Monocytes Percent Auto 5.7 % (2-11); Neutrophils Absolute Auto 3.8 X10*3/uL (2.0-8.3); Platelet Count 272 X10*3/uL (160-400); Red Cell Distribution Width 12.8 % (11.0-16.0); White Blood Count 6.5 X10*3/uL (4.8-10.8)
[2021-09-05 14:38] LABS: Alanine Aminotransferase < 6 U/L (0-31); Albumin Level 4.6 g/dL (3.5-5.0); Alkaline Phosphatase 64 U/L (39-117); Anion Gap 12 (12-20); Aspartate Amino Transferase 14 U/L (5-31); Bilirubin Total 0.4 mg/dL (0.0-1.0); Blood Urea Nitrogen 10 mg/dL (9-16); Calcium 9.1 mg/dL (8.4-10.2); Carbon Dioxide 27 mmol/L (22-29); Chloride 100 mmol/L (96-108); Estimated Glomerular Filt Rate > 60; Glucose Random 90 mg/dL (60-115); Potassium 4.4 mmol/L (3.3-5.1); Sodium 135 mmol/L (135-145); Total Protein 8.1 g/dL (6.5-8.0)
[2021-09-05 14:56] LABS: Vitamin D 25-OH Total 18.6 ng/mL (>30)
[2021-09-28 09:07] LABS: Adalimumab Drug Level 9.6 mcg/mL; Anti-Adalimumab Antibody <10 AU (<10)
== END 2021-09-05 13:27 | disposition home or self-care (01) ==
LOC: HO.LAB 13:26
PROVIDERS: PCP Family Medicine; Visit Provider Internal Medicine Gastroenterology
DX: K50.90 Crohn's disease, unspecified, without complications (principal)
CPT/HCPCS: 36415; 80053; 80145; 82306; 83520; 85025; 86140

== ENCOUNTER 2021-09-09 17:22 | Outpatient (REF) | payer MEDICAID, SELFPAY ==
[2021-09-15 04:12] LABS: Calprotectin, Fecal 821 mcg/g
== END 2021-09-09 17:23 | disposition home or self-care (01) ==
LOC: HO.LNP 17:22
PROVIDERS: Visit Provider Internal Medicine Gastroenterology
DX: K50.90 Crohn's disease, unspecified, without complications (principal)
CPT/HCPCS: 83993

== ENCOUNTER 2021-10-14 14:03 | Outpatient (REF) | payer MEDICAID, SELFPAY ==
[2021-10-14 15:11] LABS: COVID-19 Test Negative (Negative)
== END 2021-10-14 14:04 | disposition home or self-care (01) ==
LOC: HO.LAB 14:03
PROVIDERS: Visit Provider Internal Medicine
DX: Z20.822 Contact with and (suspected) exposure to COVID-19 (principal)
CPT/HCPCS: 36415; 87635; C9803

== ENCOUNTER 2021-10-20 09:58 | Outpatient (REF) | payer MEDICAID, SELFPAY ==
--- NOTE | 2021-10-20 10:58 | MHC.AU.ANO ---
Adult Audiological Evaluation Date of Visit: 10/20/21 Reason for Appointment: Patient reports that for the last several months, she has been waking up with the sensation that her ears are clogged. She feels like she is listening to everything underwater. Her own voice feels muted/dull. Has hearing been tested previously?: No Ear History: Ear Deformity: None Reported Recent Ear Drainage: None Reported Recent Ear Pain: None Reported Family History of Hearing Loss?: No Recent Ear Infections: None Reported Ear Infections in Childhood: None Reported History of Ear Wax Buildup: Yes, when younger Previous Ear Surgery: None Reported Ear used on the phone: Right Ear Blocked/Full Sensation in Ear(s): Both Ears History of occupational noise exposure?: No History: No Medical History: Medical History: Crohn's Disease Otoscopy: Right Ear: No cerumen. Mild redness in canal Left Ear: No cerumen Tympanometry: Tympanometry performed due to: To assess integrity of the middle ear system Right Ear: Normal Middle Ear System (Type A) Left Ear: Normal Middle Ear System (Type A) Acoustic Reflexes: Screening Ipsilateral Reflex Probe Right Ear: Screening Ipsilateral Reflex Present at 1000 Hz Probe Left Ear: Screening Ipsilateral Reflex Present at 1000 Hz Otoacoustic Emissions Frequency Range Used: 1.6-8 kHz Right Ear Results: Present Emissions Analysis: Present emissions suggest normal cochlear function Rules out peripheral hearing loss greater than a mild degree Left Ear Results: Present Emissions Analysis: Present emissions suggest normal cochlear function Rules out peripheral hearing loss greater than a mild degree Hearing Evaluation: Transducer(s) Used: Insert Earphones Method: Conventional Audiometry Stimuli Used: Pure Tones Right Ear: Description of Hearing: Normal hearing from 250-8000 Hz; however, there is a conductive component throughout Left Ear: Description of Hearing: Normal hearing from 250-8000 Hz; however, there is a conductive component throughout Speech Recognition Threshold (SRT): Method Used: Monitored Live Voice Stimuli Used: Spondee Words Right Ear: 10 dBHL Left Ear: 5 dBHL Word Discrimination: Method: Monitored Live Voice Word Lists Used: W-22 Right Ear: 96% at 50 dBHL Left Ear: 96% at 50 dBHL Interpretation of Results: Patient presents with hearing that is overall within normal range; however, there is a conductive component throughout. Recommendations: Referral to Ear, Nose, and Throat (ENT) is recommended to address blocked sensation in ears and conductive component to the hearing observed today. Diagnosis: Primary Diagnosis: H93.293 Abnormal Auditory Perception Signature: Provider: Carmen Lquue, CCC-A
== END 2021-10-20 09:59 | disposition home or self-care (01) ==
LOC: HO.SH 09:58
PROVIDERS: Visit Provider Family Medicine
DX: H93.293 Other abnormal auditory perceptions, bilateral (principal)
CPT/HCPCS: 92557; 92567; 92587

== ENCOUNTER 2022-03-25 15:07 | Emergency (ER) | payer MEDICAID, SELFPAY ==
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
[2022-03-25 15:23] VITALS: BP 110/62; BP 111/70; PULSE 81; PULSE 82; RESP 16; TEMP 36.9; O2SAT 100; O2SAT 99; BMI 18.0
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
[2022-03-25 15:37] VITALS: BP 111/70; PULSE 81; RESP 16; TEMP 36.9; O2SAT 100
[2022-03-25 16:10] VITALS: BP 120/62; PULSE 79; RESP 16; TEMP 36.9; O2SAT 99
== END 2022-03-25 17:08 | disposition home or self-care (01) ==
PROVIDERS: Emergency Provider Emergency Medicine; PCP Family Medicine
DX: S00.83XA Contusion of other part of head, initial encounter (principal); V43.52XA Car driver injured in collision with other type car in traffic accident, initial encounter; Y93.89 Activity, other specified; Y92.411 Interstate highway as the place of occurrence of the external cause; Y99.8 Other external cause status
CPT/HCPCS: 70100; 99283; 99284

== ENCOUNTER 2022-04-17 08:54 | Outpatient (REF) | payer MEDICAID, SELFPAY ==
[2022-04-17 09:16] LABS: MANUAL DIFF FLAG NO
[2022-04-17 09:35] LABS: Basophils Absolute Auto 0.1 X10*3/uL (0.0-0.2); Basophils Percent Auto 1.1 % (0-2); Eosinophils Absolute Auto 0.2 X10*3/uL (0.0-0.4); Eosinophils Percent Auto 2.9 % (0-4); Hemoglobin 12.8 g/dl (12.0-16.0); Imm Gran Abs Auto 0.01 X10*3/uL (0.00-0.03); Imm Gran Pct Auto 0.2 % (0.0-0.4); Lymphocytes Absolute Auto 1.9 X10*3/uL (1.2-4.9); Mean Corpuscular HGB Conc 33.7 g/dl (31.0-35.0); Mean Corpuscular Hemoglobin 29.5 pg (27.0-33.0); Mean Corpuscular Volume 87.6 fL (80.0-98.0); Mean Platelet Volume 10.2 fL (9.4-12.3); Monocytes Absolute Auto 0.3 X10*3/uL (0.1-1.2); Monocytes Percent Auto 5.2 % (2-11); Neutrophils Percent Auto 61.6 % (45-73); Platelet Count 332 X10*3/uL (160-400); Red Blood Count 4.34 X10*6/uL (4.20-5.50); Red Cell Distribution Width 13.4 % (11.0-16.0); White Blood Count 6.6 X10*3/uL (4.8-10.8)
[2022-04-17 10:27] LABS: Alanine Aminotransferase 8 U/L (0-31); Albumin Level 4.2 g/dL (3.5-5.0); Alkaline Phosphatase 62 U/L (39-117); Anion Gap 12 (12-20); Aspartate Amino Transferase 12 U/L (5-31); Bilirubin Total 0.2 mg/dL (0.0-1.0); Blood Urea Nitrogen 16 mg/dL (9-16); Calcium 9.4 mg/dL (8.4-10.2); Carbon Dioxide 26 mmol/L (22-29); Chloride 103 mmol/L (96-108); Estimated Glomerular Filt Rate > 60; Glucose Random 125 mg/dL (60-115); Potassium 4.4 mmol/L (3.3-5.1); Sodium 137 mmol/L (135-145); Total Protein 7.8 g/dL (6.5-8.0)
[2022-04-17 10:33] LABS: Ferritin 57 ng/mL (10-122); TSH reflex Free T4 2.09 uIU/mL (0.32-4.0)
[2022-04-17 17:00] LABS: Vitamin B12 400 pg/mL (200-900)
[2022-04-20 11:42] LABS: Immunoglobulin A 319 mg/dL (47-310)
[2022-04-21 15:21] LABS: TS Negative Control Passed; TS Panel A 0; TS Panel B 0; TS Positive Control Passed; TSpotTB Negative (Negative)
[2022-04-23 10:06] LABS: Transglutaminase IgA <1.0 U/mL
== END 2022-04-17 08:55 | disposition home or self-care (01) ==
LOC: HO.LAB 08:54
PROVIDERS: PCP Family Medicine; Visit Provider Internal Medicine Gastroenterology
DX: K50.90 Crohn's disease, unspecified, without complications (principal)
CPT/HCPCS: 36415; 80053; 82607; 82728; 82746; 82784; 84443; 85025; 86140; 86364; 86481; 99212

== ENCOUNTER 2022-06-03 10:39 | Outpatient (RCR) | payer OTHER, MEDICAID, SELFPAY | END 2022-06-24 10:13 | disposition home or self-care (01) | LOC: HO.PT 10:39 | PROVIDERS: PCP Family Medicine; Visit Provider Internal Medicine | DX: S16.1XXD Strain of muscle, fascia and tendon at neck level, subsequent encounter (principal) | CPT/HCPCS: 97110; 97162 ==

== ENCOUNTER → 2022-06-12 07:25 | Outpatient (BNVA) | payer MEDICAID, SELFPAY | PROVIDERS: PCP Family Medicine; Referring Provider Family Medicine; Visit Provider Internal Medicine Gastroenterology | DX: K50.90 Crohn's disease, unspecified, without complications (principal); K21.9 Gastro-esophageal reflux disease without esophagitis | CPT/HCPCS: 99212 ==

== ENCOUNTER → 2022-11-27 09:32 | Outpatient (BNVA) | payer MEDICAID, SELFPAY | PROVIDERS: PCP Family Medicine; Visit Provider Internal Medicine Gastroenterology | DX: K21.9 Gastro-esophageal reflux disease without esophagitis (principal) | CPT/HCPCS: 99212 ==

== ENCOUNTER → 2023-02-04 13:57 | Outpatient (BNVA) | payer MEDICAID, SELFPAY | PROVIDERS: PCP Family Medicine; Visit Provider Internal Medicine Gastroenterology | DX: K60.2 Anal fissure, unspecified (principal); K50.90 Crohn's disease, unspecified, without complications | CPT/HCPCS: 99212 ==

== ENCOUNTER 2023-06-14 11:54 | Outpatient (REF) | payer MEDICAID, SELFPAY ==
[2023-06-14 15:33] LABS: Alanine Aminotransferase 9 U/L (0-31); Albumin Level 3.9 g/dL (3.5-5.0); Alkaline Phosphatase 67 U/L (39-117); Anion Gap 12 (12-20); Aspartate Amino Transferase 14 U/L (5-31); Bilirubin Direct 0.1 mg/dL (0.0-0.5); Bilirubin Total 0.3 mg/dL (0.0-1.0); Blood Urea Nitrogen 13 mg/dL (9-16); Calcium 9.3 mg/dL (8.4-10.2); Carbon Dioxide 28 mmol/L (22-29); Chloride 102 mmol/L (96-108); Estimated Glomerular Filt Rate > 60; Glucose Random 67 mg/dL (60-115); Potassium 4.2 mmol/L (3.3-5.1); Sodium 138 mmol/L (135-145)
[2023-06-18 01:44] LABS: Testosterone, Total 66 ng/dL (2-45)
[2023-06-19 22:19] LABS: Estradiol Ultra Sensitive 19 pg/mL
== END 2023-06-14 11:55 | disposition home or self-care (01) ==
LOC: HO.HHCL 11:54
PROVIDERS: Visit Provider Family Medicine
DX: F64.9 Gender identity disorder, unspecified (principal)
CPT/HCPCS: 36415; 80048; 80076; 82670; 84403

== ENCOUNTER 2023-09-13 12:26 | Outpatient (REF) | payer MEDICAID, SELFPAY ==
[2023-09-13 15:44] LABS: CT PCR NOT DETECTED (Not Detect.); NG PCR NOT DETECTED (Not Detect.)
[2023-09-14 06:01] LABS: HIV AB/AG Nonreactive (Nonreactive); HIV Num 1 0.06 S/CO (0.00-0.99); ~HepC Num1 0.15 S/CO (0.00-0.79); ~Hepatitis C Antibody Nonreactive (Nonreactive)
[2023-09-14 11:33] LABS: RPR Rapid Plasma Reagin NON-REACTIVE (NON-REACTIVE)
[2023-09-19 15:13] LABS: C.Trachomatis RNA TMA, Rectal DETECTED; N.Gonorrhoeae RNA TMA, Rectal NOT DETECTED
[2023-09-19 16:33] LABS: C. Trachomatis RNA TMA, Throat NOT DETECTED; N. gonorrhoeae RNA TMA, Throat NOT DETECTED
== END 2023-09-13 12:27 | disposition home or self-care (01) ==
LOC: HO.HHCL 12:26
PROVIDERS: Visit Provider Family Medicine
DX: Z11.3 Encounter for screening for infections with a predominantly sexual mode of transmission (principal)
CPT/HCPCS: 0353U; 86592; 86803; 87389; 87491; 87591

== ENCOUNTER 2024-04-12 13:16 | Outpatient (REF) | payer MEDICAID, SELFPAY ==
[2024-04-20 02:04] LABS: Estradiol Ultra Sensitive 21 pg/mL
== END 2024-04-12 13:17 | disposition home or self-care (01) ==
LOC: HO.HHCL 13:16
PROVIDERS: Visit Provider Family Medicine
DX: F64.9 Gender identity disorder, unspecified (principal)
CPT/HCPCS: 36415; 82670

== ENCOUNTER 2024-11-23 16:04 | Outpatient (REF) | payer MEDICAID, SELFPAY | END 2024-11-23 16:05 | disposition home or self-care (01) | LOC: HO.LNP 16:04 | PROVIDERS: Visit Provider Family Medicine | DX: Z13.89 Encounter for screening for other disorder (principal) | CPT/HCPCS: 87491; 87591 ==

== ENCOUNTER 2024-12-04 11:38 | Outpatient (REF) | payer MEDICAID, SELFPAY ==
[2024-12-04 13:27] LABS: MANUAL DIFF FLAG NO
[2024-12-04 13:35] LABS: Basophils Absolute Auto 0.1 X10*3/uL (0.0-0.2); Basophils Percent Auto 0.9 % (0-2); Eosinophils Absolute Auto 0.2 X10*3/uL (0.0-0.4); Eosinophils Percent Auto 4.1 % (0-4); Hematocrit 37.8 % (37.0-47.0); Hemoglobin 12.7 g/dl (12.0-16.0); Imm Gran Abs Auto 0.01 X10*3/uL (0.00-0.03); Imm Gran Pct Auto 0.2 % (0.0-0.4); Lymphocytes Absolute Auto 1.3 X10*3/uL (1.2-4.9); Lymphocytes Percent Auto 22.2 % (20-40); Mean Corpuscular HGB Conc 33.6 g/dl (31.0-35.0); Mean Corpuscular Hemoglobin 30.3 pg (27.0-33.0); Mean Corpuscular Volume 90.2 fL (80.0-98.0); Mean Platelet Volume 9.9 fL (9.4-12.3); Monocytes Absolute Auto 0.4 X10*3/uL (0.1-1.2); Monocytes Percent Auto 6.4 % (2-11); Neutrophils Absolute Auto 3.7 x10*3/uL (2.0-8.3); Neutrophils Percent Auto 66.2 % (45-73); Platelet Count 332 X10*3/uL (160-400); Red Blood Count 4.19 X10*6/uL (4.20-5.50); Red Cell Distribution Width 13.2 % (11.0-16.0); White Blood Count 5.6 X10*3/uL (4.8-10.8)
[2024-12-04 14:07] LABS: Alanine Aminotransferase 13 U/L (0-31); Albumin Level 4.1 g/dL (3.5-5.0); Alkaline Phosphatase 74 U/L (39-117); Anion Gap 9 (12-20); Aspartate Amino Transferase 25 U/L (5-31); Bilirubin Direct 0.2 mg/dL (0.0-0.5); Bilirubin Total 0.5 mg/dL (0.0-1.0); Blood Urea Nitrogen 9 mg/dL (9-16); Calcium 9.2 mg/dL (8.4-10.2); Carbon Dioxide 26 mmol/L (22-29); Chloride 105 mmol/L (96-108); Estimated Glomerular Filt Rate > 60; Glucose Random 78 mg/dL (60-115); Iron 143 mcg/dL (30-160); Percent Iron Saturation 50 % (15-50); Potassium 3.7 mmol/L (3.3-5.1); Sodium 136 mmol/L (135-145); Total Iron Binding Capacity 287 mcg/dL (228-428); Total Protein 8.4 g/dL (6.5-8.0); Unsaturated Iron Binding 144 ug/dL
[2024-12-04 14:13] LABS: Vitamin B12 496 pg/mL (200-900)
[2024-12-04 14:24] LABS: Ferritin 114 ng/mL (10-122)
[2024-12-04 15:27] LABS: CT PCR NOT DETECTED (Not Detect.); NG PCR NOT DETECTED (Not Detect.)
--- OUTSIDE RECORDS SUMMARY | 2024-12-04 16:34 | XMS_ITS | Encounter Summary ---
Author Organization [employer] Address [address] [facility] [facility] [address] [place] [address] Care Team Providers Care Apple Sorter Name Role Phone Ariadna Tristan MD Primary Care Provider [phone] Reason for Visit * Reason Comments Injections Encounter Details Date Type Department Care Team ([facility] Contact Info) Description 12/04/2024 11:00 AM EST Clinical Support [facility] [address] [place] [address] Gely Willis RN [address] [place] [address] Gender dysphoria Social History Tobacco Use Types Packs/Day Years Used Date Smoking Tobacco: Never Passive Smoke Exposure: Never Smokeless Tobacco: Never Alcohol Use Standard Drinks/Week Comments Never 0 (1 standard drink = 0.6 oz pur e alcohol) Depression Answer Date Recorded Patient Health Questionnaire-9 Score 4 05/31/2024 Patient Health Questionnaire-9 Score 4 05/31/2024 Last PHQ-9: Questionnaire Data Not on file 0 05/31/2024 Housing Stability Answer Date Recorded What is your housing situation today? I have emeka delgadillo 11/13/[address] you li ve. Do you have problems with any of the following? None of the above 11/13/2024 Food Insecurity Answer Date Recorded Within the past 12 months, y ou worried that your food would run out before you got money to buy more: Never True 11/13/2024 Within the past 12 months,th e food you bought just didn't last and you didn't have enough money to get more: Never True 04/2025 Transportation Answer Date Recorded In the past 12 months, has l ack of transportation kept you from medical appts, meetings, work or from getting things needed for daily living? No 11/13/2024 Utilities Answer Date Recorded In the past 12 months, has t he electric, gas, oil or water company threatened to shut off services in your home? No 11/13/2024 Depression Answer Date Recorded Patient Health Questionnaire-2 Score 0 05/31/2024 Internet Access Answer Date Recorded Internet Access Q1 Yes 11/13/2024 Internet Access Q2 Not on file 11/13/2024 Sex and Gender Information Value Date Recorded Sex Assigned at Male 09/07/2022 10:23 AM EDT Legal Sex Female 10:23 AM EDT Gender Identity Transgender Female 09/07/2022 10 :23 AM EDT Sexual Orientation Choose not to disclose 2021 10:23 AM EDT documented as of this encounter Progress Notes * Gely Willis RN - 12/04/2024 11:00 AM EST S: Pt here for Nurse visit to receive scheduled depo estradiol injection. Pt denies any difficulties with previous injection received or any significant side effects at thistime. O: Standing order verified. 5mg/1mL administered IM on right right vastus lateralis, pt tolerated well. A: Gender dysphoria P: Pt is interested on continuing with injections Pt agrees with plan and verbalized Scheduled next injection with [facility] for 12/18/24. Gely Willis RN documented in this encounter Plan of Treatment Upcoming Encounters Date Type Department Care Team (Late st Contact Info) Description 12/18/2024 11:00 AM EST Clinical Support [facility] [address] [place] [phone] documented as of this encounter Visit Diagnoses Diagnosis Gender dysphoria documented in this encounter Administered Medications Active Administered Medications - up to 3 most recent administrations Medication Order MAR Action Action Date Dose Rate Site estradiol cypionate (Depo-estradiol) injection 5 mg 5 mg, Intramuscular, Every 14 days, First dose on 09/13/23 at 1230Indications:Gender dysphoria Given 12/04/2024 9:00 AM EST 5 mg Right Anterior Thigh Given 11/20/2024 9:00 AM EST 5 mg Le ft Anterior Thigh Given 11/02/2024 2:33 PM EST 5 mg Ri ght Anterior Thigh documented in this encounter Additional Health Concerns Assessment Noted Time PHQ-9 Depression Total Score: 4 05/31/20 24 11:08 AM EDT documented as of this encounter Care Teams Apple Sorter Relationship Specialty Start Date End Date Ariadna Tristan MD [address] [place] [address] PCP - General Family Medicine 07/19/19 documented as of this encounter
--- OUTSIDE RECORDS SUMMARY | 2024-12-04 16:34 | XMS_ITS | Encounter Summary ---
Author Organization [employer] Address [address] [facility] [address] [place] [address] Care Team Providers Care Deputy Register Of Deeds Name Role Phone Ariadna Tristan MD Primary Care Provider [phone]- [phone] Reason for Visit * Reason Comments Med Refill Encounter Details Date Type Department Care Team ([facility] st Contact Info) Description 02/29/2024 Refill [facility] [address] [place] [address] Ariadna Tristan MD [address] [place] [address] Social History Tobacco Use Types Packs/Day Years Used Date Smoking Tobacco: Never Passive Smoke Exposure: Never Smokeless Tobacco: Never Alcohol Use Standard Drinks/Week Comments Never 0 (1 standard drink = 0.6 oz pur e alcohol) Housing Stability Answer Date Recorded What is your housing situation today? I have emeka delgadillo 11/11/[address] you li ve. Do you have problems with any of the following? None of the above 11/11/2023 Food Insecurity Answer Date Recorded Within the past 12 months, y ou worried that your food would run out before you got money to buy more: Never True 11/11/2023 Within the past 12 months,th e food you bought just didn't last and you didn't have enough money to get more: Never True 02/2024 Transportation Answer Date Recorded In the past 12 months, has l ack of transportation kept you from medical appts, meetings, work or from getting things needed for daily living? No 11/11/2023 Utilities Answer Date Recorded In the past 12 months, has t he electric, gas, oil or water company threatened to shut off services in your home? No 11/11/2023 Depression Answer Date Recorded Patient Health Questionnaire-2 Score 0 10/29/2022 Sex and Gender Information Value Date Recorded Sex Assigned at Male 09/07/2022 10:23 AM EDT Legal Sex Female 10:23 AM EDT Gender Identity Transgender Female 09/07/2022 10 :23 AM EDT Sexual Orientation Choose not to disclose 2021 10:23 AM EDT documented as of this encounter Plan of Treatment Upcoming Encounters Date Type Department Care Team (Late st Contact Info) Description 12/18/2024 11:00 AM EST Clinical Support [facility] [address] [place] [address] documented as of this encounter Visit Diagnoses Not on filedocumented in this encounter Care Teams Deputy Register Of Deeds Relationship Specialty Start Date End Date Ariadna Tristan MD [address] [place] [address] PCP - General Family Medicine 07/19/19 documented as of this encounter
--- OUTSIDE RECORDS SUMMARY | 2024-12-04 16:34 | XMS_ITS | Encounter Summary ---
Author Organization [employer] Address [address] [address] [facility] [address] [place] [address] Care Team Providers Care Computer Customer Support Specialist Name Role Phone Ariadna Tristan MD Primary Care Provider [phone] Reason for Visit * Reason Comments Pre-visit Planning SDOH Screening negat josiah and Tobacco screening negative Encounter Details Date Type Department Care Team ([facility] st Contact Info) Description 11/13/2024 Patient Outreach [facility] MEDICINE [address] [place] [address] Ariadna Tristan MD [address] [place] [address] Pre-visit Planning (SDOH Screening negative and Tobacco screening negative) Social History Tobacco Use Types Packs/Day Years [...] as of this encounter Progress Notes * Mag Barnett - 11/13/2024 3:13 PM EST NIRAV Lin placed successful outbound call to patient for pre-visit planning. Patient name and confirmed. Patient confirms appt date and time, and has transportation arrangements. Biggest concern for appointment at this time is no concerns. Patient advised to bring to appointment a photo id and insurance card. Appropriate screenings completed in anticipation of appointment. documented in this encounter Plan of Treatment Upcoming Encounters Date Type Department Care Team (Late st Contact Info) Description 12/18/2024 11:00 AM EST Clinical Support [facility] MEDICINE [address] [place] [address] documented as of this encounter Visit Diagnoses Not on filedocumented in this encounter Additional Health Concerns Assessment Noted Time PHQ-9 Depression Total Score: 4 05/31/20 24 11:08 AM EDT documented as of this encounter Care Teams Computer Customer Support Specialist Relationship Specialty Start Date End Date Ariadna Tristan MD [address] [place] [address] PCP - General Family Medicine 07/19/19 documented as of this encounter
--- OUTSIDE RECORDS SUMMARY | 2024-12-04 16:34 | XMS_ITS | Encounter Summary ---
Author Organization [employer] Address [address] [place] [address] 7 [place] [address] Care Team Providers Care Family Reunification Specialist Name Role Phone Ariadna Tristan MD Primary Care Provider [phone] Reason for Referral * Consultation (Routine) - Closed Specialty Diagnoses / Procedures Referred By Ofelia ambrose Referred To Contact Gastroenterology Diagnoses Crohn's disease of colon, with intestinal obstruction (CMS/HCC) Ariadna Tristan MD [address] [place] [phone] Phone: tel: fax: [facility] Referral ID Status Reason Start Date Expiration Date V isits Requested Visits Authorized [id number] Closed Specialty Services Required 11/24/2024 11/24/2025 1 1 Reason for Visit * Reason Comments Annual Exam Encounter Details Date Type Department Care Team (Late st Contact Info) Description 11/23/2024 10:00 AM EST Office Visit [facility] [address] [place] [address] [phone] Ariadna Tristan MD [address] [place] [address] [phone] Crohn's disease of colon, with intestinal obstruction (CMS/HCC) (Primary Dx); Mild intermittent asthma, unspecified whether complicated; Gender dysphoria; Routine screening for STI (sexually transmitted infection); Other specified health status; Sexually transmitted disease counseling Social History Tobacco Use Types Packs/Day Years [...] AM EDT documented as of this encounter Last Filed Vital Signs Vital Sign Reading Time Taken Comments Blood Pressure 114/65 11/23/2024 10:13 AM EST Pulse 90 11/23/2024 10:13 AM EST Temperature 37.2 ??C (98.9 ??F) 11/23/2024 10:[address] Respiratory Rate 20 11/23/2024 10:13 AM EST Oxygen Saturation 90% 11/23/2024 10:13 AM EST Inhaled Oxygen Concentration - - Weight 57.7 kg (127 lb 3.2 oz) 11/23/2024 10:13 AM EST Height 172.1 cm (5' 7.75 ) 11/23/2024 10:[address] Body Mass Index 19.48 11/23/2024 10:13 AM EST documented in this encounter Progress Notes * Ariadna Tristan MD - 11/23/2024 10:00 AM EST Charly Arias is a 24 y.o. adult with PMHx of Crohn's disease, gender dysphoria and asthma who presents to the office today for chronic medical conditions and comprehensive annual evaluation. [facility] ED Summary(11/07/23-11/08/23): Presented with abdominal pain, nausea and vomiting. Patient started experiencing abdominal pain/cramps yesterday. Abdominal pain is mostly localized to the left lower quadrant. Abdominal pain is associated with nausea and 2 episodes of nonbloody nonbilious vomiting. She feels like this episode feels similar to her typical flare. Last bowel movement on 11/06 afternoon and she has not been passing gas. She also complains of chills but has no fever. Of note, she was diagnosed with Crohn's disease when she was 16 years old. Last flare up 5 to 6 months ago. She did not seek care for this flare up.She self treated herself with a juice diet and says that it went away on its own. Has had multiple h ospitalizations (4-5 admissions) for Crohn's flareup. Was previously seen by Dr. Benitez, who is now retired. She has recently relocated from [place] and has not been able to establish care with a GI doctorfor a long time now. She also states that she is noncompliant with her Humira. Her last dose was this morning and the one before that was a month ago. She arrives at the [facility] from [facility] emergency where she got Toradol 15 mg (x 1), morphine 4 mg (x 4), Zofran 4 mg, Solu-Medrol 60 mg, 1 L normal saline. She also got a CT scan of the abdomen and pelvis that was notable for concernof small bowel obstruction and Crohn's flare and was transferred to the [facility]. [facility] Hospital Course(11/08/23-11/10/23): She presented with abdominal pain and vomiting and was transferred from [facility] to [facility] for colorectal surgery evaluation. White blood cell count and inflammatory markers were modestly elevated. CT showed an acute Crohn's flare involving the terminal ileum with an upstream small bowel obstruction, an additional site of inflammation and stricturing present in the more proximal ileum, and mild wall thickening and hyperemia of the cecum and proximal descending colon. This flare was likely precipitated by noncompliance with Humira and dietary indiscretion. Colorectal surgery recommended conservative management, and she did not require NG tube placement. She was seen in consultation by GI who recommended a short course of ciprofloxacin and metronidazole. She had received 1 dose of methylprednisolone in the ED but steroids were not continued given rapid clinical improvement. She was given 1 dose of IV iron for iron deficiency anemia but thereafter lost IV access. She tolerated a low fiber diet prior to discharge. She was prescribed 3 additional days of Cipro/Flagyl at discharge to end on 11/13/23. She was instructed to resume her previously prescribed schedule of Humira every 2 weeks, and to follow-up with her GI physician in [place], [place] as scheduled. Last seen by PCP 05/31/24. Pt reports the above mentioned hospital visits were her last Crohn's flare. She is not currently following with GI. She agrees to be re-referred to get re- established with GI. She reports she is aware of PreP and agrees to STI testing today. Discussed and informed pt about Doxy Prep. Still taking Estrogen injections, 1 mL every 2 weeks. last injection was this past Wednesday. Declines COVID vaccine today. Social History Tobacco: denied Drugs: none Alcohol: No Sexuality: Identifies as Female. Agreed to SRI screening, declined condoms, declined PreP. Suicide/Depression: The patient denies any present symptoms of depression or anxiety. Review of Systems Constitutional: Negative for fatigue, fever and unexpected weight change. Respiratory: Negative for cough and shortness of breath. Cardiovascular: Negative for chest pain. Gastrointestinal: Negative for abdominal pain. Genitourinary: Negative for difficulty urinating. Current Outpatient Medications: estradiol cypionate (Depo-Estradiol) 5 MG/ML injection, Inject 1ml IM q 2 weeks. dose increased 09/13/2023, Disp: 1 mL, Rfl: 11 spironolactone (Aldactone) 100 MG tablet, Take 1 tablet (100 mg) by mouth Once per day., Disp: 90 tablet, Rfl: 3 Current Facility-Administered Medications: estradiol cypionate (Depo-estradiol) injection 5 mg, 5 mg, Intramuscular, q14 days, Ariadna Tristan MD, 5 mg at 11/20/24 0900 Allergies Allergen Reactions Apple Juice [place] Pulp Prunus Persica Seasonal Ic [Octacosanol] Past Medical History: Diagnosis Date Crohn's disease of colon, with intestinal obstruction (CMS/HCC) 07/03/2018 Pt has ileocolonic Crohn's disease, 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 López in [place] an started on Humira with improved symptoms. She left the state and was off medications and would like a referral to GI at [facility]. Symptoms currently controlled off medication. -referral to [facility] 03/12/2023 -Pt would like to go back Gender dysphoria 03/18/2021 Her pronouns are she/her. Given family history of mother with upper extremity DVT and PE, patient was seen by hematology. No contraindication for starting estrogen was found. She knows risk of nausea. -Hormones started 03/25/2020. Initally on PO, then switched to injectable, then patches, then oral and now injectable. She was off rx after surgery in Nov but would like to restart injectable. - Mild intermittent asthma 05/25/2019 -well controlled on prn albuterol Past Surgical History: Procedure Laterality Date ADENOIDECTOMY BREAST SURGERY [address] Vora MANDIBLE SURGERY 2002 Gender affirming surgery with Dr. Vora TRACHEAL SHAVE 2003 Family History Problem Relation Name Age of Onset Diabetes Maternal Grandmother Objective Visit Vitals BP 114/65 (BP Location: Left arm, Patient Position: Sitting, BP Cuff Size: Adult) Pulse 90 Temp 98.9 ??F (37.2 ??C) (Temporal) Resp 20 Ht 5' 7.75 (1.721 m) Wt 127 lb 3.2 oz (57.7 kg) SpO2 90% BMI 19.48 kg/m?? Smoking Status Never BSA 1.66 m?? Physical Exam Constitutional: Appearance: Normal appearance. HENT: Right Ear: Tympanic membrane normal. Left Ear: Tympanic membrane normal. Nose: Nose normal. Mouth/Throat: Pharynx: Oropharynx is clear. Eyes: Extraocular Movements: Extraocular movements intact. Pupils: Pupils are equal, round, and reactive to light. Cardiovascular: Rate and Rhythm: Normal rate and regular rhythm. Heart sounds: Normal heart sounds. Pulmonary: Effort: Pulmonary effort is normal. Breath sounds: Normal breath sounds. No wheezing. Abdominal: General: Abdomen is flat. Palpations: Abdomen is soft. Tenderness: There is no abdominal tenderness. Musculoskeletal: General: Normal range of motion. Skin: General: Skin is warm and dry. Neurological: General: No focal deficit present. Mental Status: She is alert. Psychiatric: Mood and Affect: Mood normal. Behavior: Behavior normal. 24 y.o. adult annual evaluation. Problem List Items Addressed This Visit Crohn's disease of colon, with intestinal obstruction (CMS/HCC) - Primary Pt has ileocolonic Crohn's disease, 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 L[facility]pez in [facility] started on Humira with improved symptoms. She left the state and was off medications and would like a referral to GI at [facility]. Symptoms currently controlled off medication. -referral to [facility] 03/12/2023 -Pt would like to go back to Dr. Nelson, she had left the area. Referral placed -Admitted 11/08/23 to [facility] for small bowel obstruction , Crohn's disease of bothsmall and large intestine with intestinal obstruction -denies being on Humira currently, Crohn's well controlled 05/31/24. Not following with specialist, but will call [facility] to schedule with new specialist. -re-referred to GI 11/23/24 Relevant Orders Referral to Gastroenterology CBC auto differential Ferritin Iron And Total Iron Binding Capacity Vitamin B12 Mild intermittent asthma -well controlled on prn albuterol Gender dysphoria Her pronouns are she/her. Given family history of mother with upper extremity DVT and PE, patient was seen by hematology. No contraindication for starting estrogen was found. She knows risk of nausea. -Hormones started 03/25/2020. Initally on PO, then switched to injectable, then patches, then oral and now injectable. She was off rx after surgery in Nov but would like to restart injectable. -s/p breast augmentation, tracheal shave and mandible contouring on 12/08/[address] Vora. -Increased estradiol cypioinate from 0.5ml IM q to 1ml 2 weeks 09/13/2023 -restart spironolactone at 100mg daily 03/12/2023 -check labs 1 month -she prefers injections done with our nurses -Will teach in office how to inject at home -Not taking medications regularly . -last Estradiol level on 04/12/24 was low. -pt prefers biweekly, but notes she lost a dose recently. -discussed staying with biweekly dosing and checking labs 5 days after next dose to evaluate for dosing frequency -given information and phone numbers for gender specific therapists -given number to call for gender specific surgical specialists -ordered labs 11/23/24 Relevant Orders Hepatic Function Panel Testosterone, Total, males (Adult), IA Estradiol Basic Metabolic Panel Other specified health status -next comprehensive annual evaluation due after 11/23/25 -referred to [facility] -do not have a dental home, encouraged to get established -health care proxy filed 05/31/24 Sexually transmitted disease counseling Condoms given Declined PrEP Pt gets STI testing with [facility]. Other Visit Diagnoses Routine screening for STI (sexually transmitted infection) Relevant Orders Chlamydia/N. Gonorrhoeae RNA, TMA, Urine HIV-1/2 Antigen and Antibodies, Fourth Generation, with Reflexes Hepatitis C Antibody with Reflex to HCV, RNA, Quantitative, Real-Time PCR Syphilis Screen Chlamydia/N. Gonorrhoeae RNA, TMA, Throat Chlamydia/N. Gonorrhoeae RNA, TMA, Rectal Annual Evaluation -Normal growth and development. -Anticipatory guidance discussed. -Preventative care / harm reduction discussed. Follow up in about 1 year (around 11/23/2025) for annual evaluation. I, Allison Coffman, am serving as a scribe to document services personally performed by Dr. Landin, based on the patient's response to questions by provider and providers statements to me. documented in this encounter Miscellaneous Notes * Assessment & Plan Note - Allison Coffman - 11/23/2024 10:43 AM ESTAssociated Problem(s): Gender dysphoria Her pronouns are she/her. Given family history of mother with upper extremity DVT and PE, patient was seen by hematology. No contraindication for starting estrogen was found. She knows risk of nausea. -Hormones started 03/25/2020. Initally on PO, then switched to injectable, then patches, then oral and now injectable. She was off rx after surgery in Nov but would like to restart injectable. -s/p breast augmentation, tracheal shave and mandible contouring on 12/08/[address] Vora. -Increased estradiol cypioinate from 0.5ml IM q to 1ml 2 weeks 09/13/2023 -restart spironolactone at 100mg daily 03/12/2023 -check labs 1 month -she prefers injections done with our nurses -Will teach in office how to inject at home -Not taking medications regularly . -last Estradiol level on 04/12/24 was low. -pt prefers biweekly, but notes she lost a dose recently. -discussed staying with biweekly dosing and checking labs 5 days after next dose to evaluate for dosing frequency -given information and phone numbers for gender specific therapists -given number to call for gender specific surgical specialists -ordered labs 11/23/24 * Assessment & Plan Note - Allison Coffman - 11/23/2024 10:32 AM ESTAssociated Problem(s): Mild intermittent asthma -well controlled on prn albuterol * Assessment & Plan Note - Allison Coffman - 11/23/2024 10:32 AM ESTAssociated Problem(s): Other specified health status -next comprehensive annual evaluation due after 11/23/25 -referred to [facility] -do not have a dental home, encouraged to get established -health care proxy filed 05/31/24 * Assessment & Plan Note - Allison Coffman - 11/23/2024 10:32 AM ESTAssociated Problem(s): Sexually transmitted disease counseling Condoms given Declined PrEP Pt gets STI testing with [facility]. * Assessment & Plan Note - Allison Coffman - 11/23/2024 10:29 AM ESTAssociated Problem(s): Crohn's disease of colon, with intestinal obstruction (CMS/HCC) Pt has ileocolonic Crohn's disease, 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 López in [place] an started on Humira with improved symptoms. She left the state and was off medications and would like a referral to GI at [facility]. Symptoms currently controlled off medication. -referral to [facility] 03/12/2023 -Pt would like to go back to Dr. Nelson, she had left the area. Referral placed -Admitted 11/08/23 to [facility] for small bowel obstruction , Crohn's disease of bothsmall and large intestine with intestinal obstruction -denies being on Humira currently, Crohn's well controlled 05/31/24. Not following with specialist, but will call [facility] to schedule with new specialist. -re-referred to GI 11/23/24 documented in this encounter Plan of Treatment Upcoming Encounters Date Type Department Care Team (Late st Contact Info) Description 12/18/2024 11:00 AM EST Clinical Support [facility] [address] [place] [phone] Scheduled Orders Name Type Priority Associated Diagnoses Orde r Schedule Testosterone, Total, males (Adult), IA Lab Routine Gender dysphoria Expected: 11/23/2024, Expires: 11/23/2025 Estradiol Lab Routine Gender dysphoria Expected: 11/23/2024, Expires: 11/23/2025 HIV-1/2 Antigen and Antibodies, Fourth Generation, with Reflexes Lab Routine Routine screening for STI (sexually transmitted infection) Expected: 11/23/2024 (Approximate), Expires: 11/23/2025 Hepatitis C Antibody with Reflex to HCV, RNA, Quantitative, Real-Time PCR Lab Routine Routine screening for STI (sexually transmitted infection) Expected: 11/23/2024 (Approximate), Expires: 11/23/2025 Syphilis Screen Lab Routine Routine screening for STI (sexually transmitted infection) Expected: 11/23/2024 (Approximate), Expires: 11/23/2025 Chlamydia/N. Gonorrhoeae RNA, TMA, Throat Microbiology Routine Routine screening for STI (sexually transmitted infection) Ordered: 11/23/2024 Chlamydia/N. Gonorrhoeae RNA, TMA, Rectal Microbiology Routine Routine screening for STI (sexually transmitted infection) Expected: 11/23/2024, Expires: 11/23/2025 Scheduled Referrals Name Type Priority Associated Diagnoses Order Schedule Referral to Gastroenterology Outpatient Referral Routine Crohn's disease of colon, with intestinal obstruction (CMS/HCC) Expected: 11/23/2024 (Approximate), Expires: 11/23/2025 documented as of this encounter Procedures Procedure Name Priority Date/Time Associated Diagnosis Comments CBC WITH AUTO DIFFERENTIAL Routine 12/04/2024 11:46 AM EST Crohn's disease of colon, with intestinal obstruction (CMS/HCC) IRON AND TOTAL IRON BINDING CAPACITY Routine 12/04/2024 11:46 AM EST Crohn's disease of colon, with intestinal obstruction (CMS/HCC) CHLAMYDIA/N. GONORRHOEAE RNA, TMA, UROGENITAL Routine 12/04/2024 11:46 AM EST Routine screening for STI (sexually transmitted infection) FERRITIN Routine 12/04/2024 11:46 AM EST Crohn's disease of colon, with intestinal obstruction (CMS/HCC) VITAMIN B12 Routine 12/04/2024 11:46 AM EST Crohn's disease of colon, with intestinal obstruction (CMS/HCC) HEPATIC FUNCTION PANEL Routine 12/04/2024 11:46 AM EST Gender dysphoria BASIC METABOLIC PANEL Routine 12/04/2024 11:46 AM EST Gender dysphoria documented in this encounter Results * Chlamydia/N. Gonorrhoeae RNA, TMA, Urine (12/04/2024 11:46 AM EST) CT PCR NOT DETECTED Not Detect. [facility] Comment:A not detected test result does not exclude the possibilityof infection because test results can be affected byimproper specimen collection, concurrent antibiotic therapy,or the number of organisms in the specimen which may bebelow the sensitivity of the test. As with many diagnostictests, results from the Xpert CT/NG assay should beinterpreted in conjunction with other laboratory andclinical data available to the clinician.Xpert CT/NG performance has not been evaluated in patientsless than 14 years of age. The assay should not be used forthe evaluationof suspected sexual abuse or for other medico-legalindications. Additional testing is recommended in anycircumstance when false positive or false negative resultscould lead to adverse medical, social or psychologicalconsequences. NG PCR NOT DETECTED Not Detect. [facility] Comment:A not detected test result does not exclude the possibilityof infection because test results can be affected byimproper specimen collection, concurrent antibiotic therapy,or the number of organisms in the specimen which may bebelow the sensitivity of the test. As with many diagnostictests, results from the Xpert CT/NG assay should beinterpreted in conjunction with other laboratory andclinical data available to the clinician.Xpert CT/NG performance has not been evaluated in patientsless than 14 years of age. The assay should not be used forthe evaluationof suspected sexual abuse or for other medico-legalindications. Additional testing is recommended in anycircumstance when false positive or false negative resultscould lead to adverse medical, social or psychologicalconsequences. Urine, Random 12/04/2024 11: 46 AM EST 12/04/2024 1:11 PM EST Narrative [facility] - 12/04/2024 3:28 PM EST Urine us Ariadna Tristan MD LAB MICROBIOLOGY - GENERAL ORDERABLES Final Result [facility] [address] [place] [phone] * Vitamin B12 (12/04/2024 11:46 AM EST) Vitamin B12 496 200 - 900 pg/mL [facility] Comment:NORMAL 200-900 PG/ML INDETERMINATE 160-199 PG/ML DEFICIENT < 160 PG/ML Blood Venous blood specimen / Unknown 12/04/2024 11:46 AM EST 12/04/2024 1:22 PM EST Ariadna Tristan MD LAB BLOOD ORDERABLES Final Result Performing Organization Address [facility] Co de Phone Number [facility] [address] [place] [phone] * Iron And Total Iron Binding Capacity (12/04/2024 11:46 AM EST) Pathologist [facility] Iron 143 30 - 160 mcg/dL [facility] Total Iron Binding Capacity 287 228 - 428 mcg/dL [facility] Percent Iron Saturation 50 15 - 50 % [facility] Unsaturated Iron Binding 144 ug/dL [facility] Blood Venous blood specimen / Unknown 12/04/2024 11:46 AM EST 12/04/2024 1:22 PM EST Ariadna Tristan MD LAB BLOOD ORDERABLES Final Result Performing Organization Address [facility] Co de Phone Number [facility] [address] [place] [phone] * Ferritin (12/04/2024 11:46 AM EST) Pathologist [facility] Ferritin 114 10 - 122 ng/mL [facility] Blood Venous blood specimen / Unknown 12/04/2024 11:46 AM EST 12/04/2024 1:22 PM EST Ariadna Tristan MD LAB BLOOD ORDERABLES Final Result Performing Organization Address [facility] Co de Phone Number [facility] [address] [place] [phone] * (ABNORMAL) CBC auto differential (12/04/2024 11:46 AM EST) White Blood Count 5.6 4.8 - 10.8 X10*3/uL [facility] Red Blood Count 4.19(L) 4.20 - 5.50 X10*6/uL [facility] Hemoglobin 12.7 12.0 - 16.0 g/dl [facility] Hematocrit 37.8 37.0 - 47.0 % [facility] Mean Corpuscular Volume 90.2 80.0 - 98.0 fL [facility] Mean Corpuscular Hemoglobin 30.3 27.0 - 33.0 pg [facility] Mean Corpuscular HGB Conc 33.6 31.0 - 35.0 g/dl [facility] Red Cell Distribution Width 13.2 11.0 - 16.0 % [facility] Platelet Count 332 160 - 400 X10*3/uL [facility] Mean Platelet Volume 9.9 9.4 - 12.3 fL [facility] Neutrophils Percent Auto 66.2 45 - 73 % [facility] Imm Gran Pct Auto 0.2 0.0 - 0.4 % [facility] Lymphocytes Percent Auto 22.2 20 - 40 % [facility] Monocytes Percent Auto 6.4 2 - 11 % [facility] Eosinophils Percent Auto 4.1(H) 0 - 4 % [facility] Basophils Percent Auto 0.9 0 - 2 % [facility] NRBC Pct Auto 0.0 0.0 - 0.2 /100WBC [facility] Neutrophils Absolute Auto 3.7 2.0 - 8.3 x10*3/uL [facility] Imm Gran Abs Auto 0.01 0.00 - 0.03 X10*3/uL [facility] Lymphocytes Absolute Auto 1.3 1.2 - 4.9 X10*3/uL [facility] Monocytes Absolute Auto 0.4 0.1 - 1.2 X10*3/uL [facility] Eosinophils Absolute Auto 0.2 0.0 - 0.4 X10*3/uL [facility] Basophils Absolute Auto 0.1 0.0 - 0.2 X10*3/uL [facility] NRBC Abs Auto 0.000 0.0 - 0.012 X10*3/uL [facility] Blood Venous blood specimen / Unknown 12/04/2024 11:46 AM EST 12/04/2024 1:22 PM EST Ariadna Tristan MD LAB BLOOD ORDERABLES Final Result Performing Organization Address [facility] Co de Phone Number [facility] [address] [place] [address] [phone] * (ABNORMAL) Basic Metabolic Panel (12/04/2024 11:46 AM EST) Sodium 136 135 - 145 mmol/L [facility] Potassium 3.7 3.3 - 5.1 mmol/L [facility] Chloride 105 96 - 108 mmol/L [facility] Carbon Dioxide 26 22 - 29 mmol/L [facility] Anion Gap 9(L) 12 - 20 [facility] Urea Nitrogen (BUN) 9 9 - 16 mg/dL [facility] Creatinine, Serum 0.82 0.5 - 1.4 mg/dL [facility] Estimated Glomerular Filt Rate >60 [facility] Comment:Chronic Kidney Disea se: Estimated GFR < 60 mL/min/[id number] Kidney Disease: Estimated GFR < 15 mL/min/1.73m2 Glucose 78 60 - 115 mg/dL [facility] Calcium 9.2 8.4 - 10.2 mg/dL [facility] Blood Venous blood specimen / Unknown 12/04/2024 11:46 AM EST 12/04/2024 1:22 PM EST Ariadna Tristan MD LAB BLOOD ORDERABLES Final Result Performing Organization Address [facility] Co de Phone Number [facility] [address] [place] [phone] * (ABNORMAL) Hepatic Function Panel (12/04/2024 11:46 AM EST) Bilirubin, Total 0.5 0.0 - 1.0 mg/dL [facility] Bilirubin, Direct 0.2 0.0 - 0.5 mg/dL [facility] Aspartate Amino Transferase 25 5 - 31 U/L [facility] Alanine Aminotransferase 13 0 - 31 U/L [facility] Total Protein 8.4(H) 6.5 - 8.0 g/dL [facility] Albumin Level 4.1 3.5 - 5.0 g/dL [facility] Alkaline Phosphatase 74 39 - 117 U/L [facility] Blood Venous blood specimen / Unknown 12/04/2024 11:46 AM EST 12/04/2024 1:22 PM EST us Ariadna Tristan MD LAB BLOOD ORDERABLES Final Result Performing Organization Address City/State/[facility] Co de Phone Number [facility] [address] [place] [phone] documented in this encounter Visit Diagnoses Diagnosis Crohn's disease of colon, with intestinal obstruction (CMS/HCC)- Primary Mild intermittent asthma, unspecified whether complicated Gender dysphoria Routine screening for STI (sexually transmitted infection) Screening examination for venereal disease Other specified health status Sexually transmitted disease counseling Counseling on other sexually transmitted diseases documented in this encounter Additional Health Concerns Assessment Noted Time PHQ-9 Depression Total Score: 4 05/31/20 24 11:08 AM EDT documented as of this encounter Care Teams Family Reunification Specialist Relationship Specialty Start Date End Date Ariadna Tristan MD [address] [place] [phone] PCP - General Family Medicine 07/19/19 documented as of this encounter
--- OUTSIDE RECORDS SUMMARY | 2024-12-04 16:34 | XMS_ITS | Referral Summary ---
Author Organization [facility] Address [address] [place] [address] Care Team Providers Care Nuclear Power Plant Engineer Name Role Phone Ariadna Tristan Primary Care Provider [phone] Allergies No known active allergies Medications estradioL (ESTRACE) 2 mg tablet Take 4 mg by mouth daily. 02/05/2021 Active adalimumab (Humira) 40 mg/0.8 mL subcutaneous syringe Inject 40 mg under the skin every 14 days. Active spironolactone (ALDACTONE) 100 mg tablet Take 100 mg by mouth daily. 12/21/2020 Active Active Problems Problem Noted Date Diagnosed Date Gender dysphoria 03/18/2021 Transgender 03/18/2021 Social History Tobacco Use Types Packs/Day Years Used Date Smoking Tobacco: Never Assessed Sex and Gender Information Value Date Recorded Sex Assigned at Male 07/30/2022 1:08 PM EDT Legal Sex Female 4:19 PM EDT Gender Identity Transgender Female 07/30/2022 1: 08 PM EDT Sexual Orientation Other 07/30/2022 1: 08 PM EDT Last Filed Vital Signs Vital Sign Reading Time Taken Comments Blood Pressure - - Pulse - - Temperature - - Respiratory Rate - - Oxygen Saturation - - Inhaled Oxygen Concentration - - Weight 56.7 kg (125 lb) 03/10/2021 3:34 PM EDT Height 170.2 cm (5' 7 ) 03/10/2021 3:34 PM EDT Body Mass Index 19.58 03/10/2021 3:34 PM EDT Plan of Treatment Not on file Insurance [employer] Care Teams Nuclear Power Plant Engineer Relationship Specialty Start Date End Date Ariadna Tristan [address] [place] [phone] PCP - General Family Medicine 02/07/21
--- OUTSIDE RECORDS SUMMARY | 2024-12-04 16:34 | XMS_ITS | Encounter Summary ---
Author Organization [employer] Address [address] [facility] [address] [place] [address] Care Team Providers Care Mincemeat Maker Name Role Phone Ariadna Tristan MD Primary Care Provider [phone]- [phone] Encounter Details Date Type Department Care Team ([facility] st Contact Info) Description 11/22/2024 Telephone [facility] [address] [place] [address] Mag Holloway [place] Social History Tobacco Use Types Packs/Day Years [...] AM EDT documented as of this encounter Miscellaneous Notes * Telephone Encounter - Mag Holloway [place] - 11/22/2024 4:24 PM EST Chart Prep Labs: none Images: none Vaccines due: covid 19 Referrals: none Screenings: none Overdue care gaps: Sbirt .. documented in this encounter Plan of Treatment Upcoming Encounters Date Type Department Care Team (Late st Contact Info) Description 12/18/2024 11:00 AM EST Clinical Support [facility] [address] [place] [address] documented as of this encounter Visit Diagnoses Not on filedocumented in this encounter Additional Health Concerns Assessment Noted Time PHQ-9 Depression Total Score: 4 05/31/20 24 11:08 AM EDT documented as of this encounter Care Teams Mincemeat Maker Relationship Specialty Start Date End Date Ariadna Tristan MD [address] [place] [phone] PCP - General Family Medicine 07/19/19 documented as of this encounter
--- OUTSIDE RECORDS SUMMARY | 2024-12-04 16:34 | XMS_ITS | Clinical Summary ---
Author Organization [facility] Address [address] [place] [address] Care Team Providers Care Compensation Intern Name Role Phone Ariadna Tristan Primary Care Provider +1- [phone] Allergies No known active allergies Medications estradioL [...] 03/10/2021 3:34 PM EDT Plan of Treatment Health Maintenance Due Date Last Done Comments HIV Screening 2000 Pap Smear 2000 Varicella Vaccines (1 of 2 - 13+ 2-dose series) 2013 HPV Vaccines (1 - 3-dose series) 2015 Hepatitis B Vaccines (1 of 3 - 19+ 3-dose series) 2019 DTaP,Tdap,and Td Vaccines (1 - Tdap) 2022 COVID-19 Vaccine (1 - 2023-2 5 season) 2024 Influenza Vaccine (#1) 2024 Alcohol/Substance Use Screening 11/08/2024 RSV Vaccine (60+ years old a nd patients) (1 - 1-dose 75+ series) 2075 Meningococcal Vaccine Aged Out No juliet devang eligible based on patient's age to complete this topic Pneumococcal Vaccine: Pediat noah (0-5 Years) and At-Risk Patients (6-64 Years) Aged Out No longer eligible b ased on patient's age to complete this topic [place] [address] [address] Care Teams Compensation Intern Relationship Specialty Start Date End Date Azalea, Ariadna Jarvis [address] [place] [phone] PCP - General Family Medicine 02/07/21
--- OUTSIDE RECORDS SUMMARY | 2024-12-04 16:34 | XMS_ITS | Clinical Summary ---
Author Organization [employer] Address [address] [place] [address] 7 [place] [address] Care Team Providers Care Fuel Storage Technician Name Role Phone Ariadna Tristan MD Primary Care Provider [phone] Allergies Active Allergy Reactions Criticality Noted Date Comments Apple Juice 05/05/2023 Delphos Pulp 05/05/2023 Prunus Persica 05/05/2023 Octacosanol 05/05/2023 Medications estradiol cypionate (Depo-Estradiol ) 5 MG/ML injectionIndica tions:Gender dysphoria Inject 1ml IM q 2 weeks. dose increased 09/13/2023 1 mL 11 4 Active spironolactone (Aldactone) 100 MG tabletIndicatio ns:Gender dysphoria Take 1 tablet (100 mg) by mouth Once per day. 90 tablet 3 4 Active Hospital, Clinic, or Other Facility Administered Medication Ordered Dose Route Frequency Start Date End Date Status estradiol cypionate (Depo-estradiol) injection 5 mgIndications:Gender dysphoria 5 mg IM Every 14 days 09/13/2023 Active Active Problems Problem Noted Date Diagnosed Date Positive depression screening 05/31/2024 Overview (05/31/2024): Denies suicidial or homacidial ideation. List of therapist with gender training given. Assessment & Plan (05/31/2024 11:35 AM EDT): Denies suicidial or homacidial ideation. List of therapist with gender training given. SBO (small bowel obstruction) 11/08/2023 Assessment & Plan (11/29/2023 9:49 AM EST): - 11/07/23, Crohn's disease flare up - resolved with conservative mangement Disordered eating 05/05/2023 Other specified health status 05/05/2023 Overview (11/23/2024): -next comprehensive annual evaluation due after 11/23/25 -referred to [facility] -do not have a dental home, encouraged to get established -health care proxy filed 05/31/24 Assessment & Plan (11/23/2024 10:32 AM EST): -next comprehensive annual evaluation due after 11/23/25 -referred to [facility] -do not have a dental home, encouraged to get established -health care proxy filed 05/31/24 Assessment & Plan (05/31/2024 10:49 AM EDT): -next physical exam due after 09/13/2024 -referred to [facility] -do not have a dental home, encouraged to get established -health care proxy filed 05/31/24 Assessment & Plan (09/13/2023 11:18 AM EST): -next physical exam due after 09/13/2024 -eye care facilitated by -dental home is Sexually transmitted disease counseling 03/12/20 Overview (03/12/2023): Condoms given Declined PrEP Pt gets STI testing with [facility]. Assessment & Plan (11/23/2024 10:32 AM EST): Condoms given Declined PrEP Pt gets STI testing with [facility]. Assessment & Plan (05/31/2024 10:44 AM EDT): Condoms given Declined PrEP Pt gets STI testing with [facility]. Assessment & Plan (09/13/2023 11:13 AM EST): Condoms given Declined PrEP Pt gets STI testing with [facility]. Assessment & Plan (03/12/2023 10:39 AM EDT): Condoms given Declined PrEP Pt gets STI testing with [facility]. GERD (gastroesophageal reflux disease) 3 Overview (05/05/2023): - continue with oral PPI. Assessment & Plan (09/13/2023 11:12 AM EST): - continue with oral PPI. Gender dysphoria 03/18/2021 Overview (11/23/2024): Her pronouns are she/her. Given family history [...] gender specific surgical specialists -ordered labs 11/23/24 Assessment & Plan (11/23/2024 10:43 AM EST): Her pronouns are she/her. Given family history [...] gender specific surgical specialists -ordered labs 11/23/24 Assessment & Plan (05/31/2024 10:55 AM EDT): Her pronouns are she/her. Given family history [...] to call for gender specific surgical specialists Assessment & Plan (11/29/2023 1:00 PM EST): - Received estradiol today Assessment & Plan (09/13/2023 12:05 PM EST): Her pronouns are she/her. Given family history [...] mandible contouring on 12/08/[address] Vora. --Increased estradiol cypioinate from 0.5ml IM q to 1ml 2 weeks 09/13/2023 -restart spironolactone at 100mg daily 03/12/2023 -check labs 1 month -she prefers injections done with our nurses -Will teach in office how to inject at home -Not taking medications regularly. Assessment & Plan (06/04/2023 10:26 AM EDT): Her pronouns are she/her. Given family history [...] mandible contouring on 12/08/[address] Vora. -restart estradiol cypioinate 0.5ml IM q 2 weeks 03/12/2023. -restart spironolactone at 100mg daily 03/12/2023 -check labs 1 month -she prefers injections done with our nurses Assessment & Plan (03/12/2023 12:12 PM EDT): Her pronouns are she/her. Given family history [...] mandible contouring on 12/08/[address] Vora. -restart estradiol cypioinate 0.5ml IM q 2 weeks -restart spironolactone at 100mg daily 03/12/2023 -check labs 1 month -she prefers injections done with our ruses.-electrolytes Mild intermittent asthma 05/25/2019 Overview (11/23/2024): -well controlled on prn albuterol Assessment & Plan (11/23/2024 10:32 AM EST): -well controlled on prn albuterol Assessment & Plan (05/31/2024 11:01 AM EDT): -well controlled on prn albuterol Assessment & Plan (09/13/2023 11:13 AM EST): -well controlled on prn albuterol Crohn's disease of colon, with intestinal obstru ction 07/03/2018 Overview (11/23/2024): Pt has ileocolonic Crohn's disease, 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 López in [place] an started on Humira with improved symptoms. She left the state and was off medications and would like a referral to GI at [facility]. Symptoms currently controlled off medication. -referral to [facility] 03/12/2023 -Pt would like to go back to Dr. Nelson, she had left the area. Referral placed -Admitted 11/08/23 to [facility] for small bowel obstruction , Crohn's disease of both small and large intestine with intestinal obstruction -denies being on Humira currently, Crohn's well controlled 05/31/24. Not following with specialist, but will call [facility] to schedule with new specialist. 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 López in [place] an started on Humira with improved symptoms. She left the state and was off medications and would like a referral to GI at [facility]. Symptoms currently controlled off medication. -referral to [facility] 03/12/2023 -Pt would like to go back to Dr. Nelson, she had left the area. Referral placed -Admitted 11/08/23 to [facility] for small bowel obstruction , Crohn's disease of both small and large intestine with intestinal obstruction -denies being on Humira currently, Crohn's well controlled 05/31/24. Not following with specialist, but will call [facility] to schedule with new specialist. -re-referred to GI 11/23/24 Assessment & Plan (05/31/2024 10:44 AM EDT): Pt has ileocolonic Crohn's disease, 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 López in [place] an started on Humira with improved symptoms. She left the state and was off medications and would like a referral to GI at [facility]. Symptoms currently controlled off medication. -referral to [facility] 03/12/2023 -Pt would like to go back to Dr. Nelson, she had left the area. Referral placed -Admitted 11/08/23 to [facility] for small bowel obstruction , Crohn's disease of both small and large intestine with intestinal obstruction -denies being on Humira currently, Crohn's well controlled 05/31/24. Not following with specialist, but will call [facility] to schedule with new specialist. Assessment & Plan (11/29/2023 9:49 AM EST): - recent flare-up requiring hospitalization 11/07/23-11/10/23, treated with 1 dose methylprednisolone and 7-day course of cipro/metronidazole. Likely due to non-adherence to Humira - emphasized the importance of adherence to Humira - upcoming appointment with Dr. López in January 2024 - check if she can get nutritional supplement - continue MVI; restart vitamin D Assessment & Plan (09/13/2023 11:11 AM EST): Pt has ileocolonic Crohn's disease, 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 López in [place] an started on Humira with improved symptoms. She left the state and was off medications and would like a referral to GI at [facility]. Symptoms currently controlled off medication. -referral to [facility] 03/12/2023 -Pt would like to go back to Dr. Nelson, she had left the area. Assessment & Plan (06/04/2023 10:41 AM EDT): Pt would like to go back to Dr. Nelson, she had left the area. Assessment & Plan (03/12/2023 12:18 PM EDT): Pt has ileocolonic Crohn's disease, 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 López in [place] an started on Humira with improved symptoms. She left the state and was off medications and would like a referral to GI at [facility]. Symptoms currently controlled off medication. -referral to [facility] 03/12/2023 Protein-calorie malnutrition 03/24/2018 Assessment & Plan (11/29/2023 9:49 AM EST): - nutritional supplement Loss of appetite 03/10/2017 Anxiety 10/15/2016 Posttraumatic stress disorder 10/15/2016 Resolved Problems Problem Noted Date Diagnosed Date Resolved Date Sore throat 05/31/2024 11/09/2024 Overview (05/31/2024): -likely from air conditioner -Gonorrhea and chlamydia testing with [facility] -Strep ?? 05/31/24 Physical exam 09/13/2023 11/09/2024 Overview (09/13/2023): -Normal growth and development. -Anticipatory guidance discussed. -Preventative care / harm reduction discussed. Assessment & Plan (09/13/2023 11:18 AM EST): -Normal growth and development. -Anticipatory guidance discussed. -Preventative care / harm reduction discussed. Strep throat 07/30/2023 05/31/2024 Assessment & Plan (07/30/2023 6:56 AM EDT): Reports 3 d of sore throat, NINA, chills, fatigue. Denies fever. Denies any nor GI Sx. Denies cough, SOB, sick contacts. Taking Ibuprofen for Sx. Pt today has negative COVID and Flu tests, but positive rapid strep test. -Advise hydration. -Supportive therapy w Tylenol and Ibuprofen PRN. Cepacol PRN. -Amoxicillin 500 mg BID for 10 d.. Abnormal menses 06/04/2023 06/04/2023 Underweight 05/05/2023 11/09/2024 Crohn's disease 07/06/2019 05/05/2023 Overview (05/05/2023): Last Assessment & Plan: Received 2L NS in the ED. Morphine 4 mg IV x 2. MR enterography today. Spoke to Dr. Benitez this afternoon who recommended changing prednisone and starting IV solumedrol. Patient has been on Remicaid and labs drawn a few days ago to evaluate for patient anti-drug antibodies. Dr. Benitez awaiting lab results before starting biologics. LR at 100/hr. Minimize narcotics. Tonight MR enterography reading shows distended small bowel loops, some with air-fluid levels. No definite bowel wall thickening or enhancement. So if improved discharge tomorrow on prednisone 40 mg daily x 5 days, wean 5 mg every 3 days for mild crohn flare. Call Dr. Benitez's office on for follow up. If he is not improved he will get scoped. Encounters Date Type Department Care Team Description 12/04/2024 11:00 AM EST Clinical Support [address] [id number] Gely Willis, KEILY Gender dysphoria 12/04/2024 Travel 11/23/2024 10:00 AM EST Office Visit [address] [address] Ariadna Tristan MD Crohn's disease of colon, with intestinal obstruction (CMS/HCC) (Primary Dx); Mild intermittent asthma, unspecified whether complicated; Gender dysphoria; Routine screening for STI (sexually transmitted infection); Other specified health status; Sexually transmitted disease counseling 11/22/[address] [address] Mag Holloway [place] 11/20/2024 11:00 AM EST Clinical Support [address] [address] Gely Willis, KEILY Gender dysphoria 11/20/2024 Travel 11/13/2024 Patient Outreach [address] [address] Ariadna Tristan MD Pre-visit Planning (SDOH Screening negative and Tobacco screening negative) 11/02/2024 2:00 PM EST Clinical Support [address] [address] Gely Willis, RN Gender dysphoria 11/02/2024 Travel 10/18/2024 2:00 PM EST Clinical Support [address] [address] Gely Willis, RN Gender dysphoria 10/18/2024 Travel 09/29/2024 Telephone [facility]OM[facility] [address] [place] [phone] Rachele Nicholson OD 09/26/2024 2:30 PM EST Clinical Support [address] [address] Gely Willis, RN Gender dysphoria 09/26/2024 Travel 09/26/[address] [address] Linn Aguilar [place] November09/12/2024 2:30 PM EST Clinical Support [address] [address] Gely Willis, RN Gender dysphoria 09/12/2024 Travel 09/06/2024 Travel from Last 3 Months Immunizations Name Administration Dates Next Due DTaP 07/16/2005, 2,06/02/2001,04/13 DTaP, 5 pertussis antigens 01/26/2001 HPV 9-Valent 06/29/2013 HPV, Unspecified 07/20/2014,02/19/2014 Hep A, ped/adol, 2 dose 06/22/2008,08/13/2007 Hep B, Adolescent or Pediatric 07/14/2001,2000,2000 HiB, unspecified 01/05/2002,06/02/2001, 1 Hib (PRP-T) 01/26/2001 IPV 12/29/2005, 2,04/13/2001,02/11 Influenza injectable quadriv alent IIV4 with preservative 07/12/2015,07/20/2014,09/16/2013 Influenza injectable quadriv alent preservative free 10/15/2016 MMR 12/29/2005,11/21/2001 Meningococcal MCV4P [id number]-135 05/06/2017,06/29/20 13 Pneumococcal Conjugate PCV 13 07/16/2005 ,07/14/2001,04/13/2001,02/11 Tdap 06/10/2012 Varicella 07/19/2006,01/05/2002 Family History Medical History Relation Name Comments Diabetes Maternal Grandmother Relation Name Status Comments Maternal Grandmother Social History Tobacco Use Types Packs/Day Years Used Date Smoking Tobacco: Never Passive Smoke Exposure: Never Smokeless Tobacco: Never Tobacco Cessation:Counseling Given: Not Answered Alcohol Use Standard Drinks/Week Comments Never 0 [...] not to disclose 2021 10:23 AM EDT Last Filed Vital Signs Vital Sign [...] Mass Index 19.48 11/23/2024 10:13 AM EST Plan of Treatment Upcoming Encounters Date Type Department Care Team (Late st Contact Info) Description 12/18/2024 11:00 AM EST Clinical Support [facility]IC[facility] [address] [place] [address] Health Maintenance Due Date Last Done Comments Family Planning (PISQ) 2015 Influenza Vaccine (#1) 2025 6, 07/12/2015, 07/20/2014, Additional history exists Postponed from 07/09/2024 (Patient Refused) DTaP/Tdap/Td Vaccines (7 - Td or Tdap) 05/31/2025 06/10/2012, 07/16/2005, 05/17/2002, Additional history exists Postponed from 06/10/2022 (Patient Refused) Depression Screening 05/31/2025 05/31/2024, 05/31/20 24 Pneumococcal Vaccine: Pediatrics (0 to 5 Years) and At-Risk Patients (6 to 64 Years) (1 of 1 - PPSV23 or PCV20) 05/31/2025 07/16/2005, 07/14/2001, 04/13/2001, Additional history exists Postponed from 2006 (Patient Refused) SDOH Screening 11/13/2025 11/13/2024 Alcohol/Substance Use Screening 11/23/2025 11/23/2024 COVID-19 Vaccine ( - season) 2025 Postponed from 07/09/2024 (Patient Refused) Tobacco Screening 11/23/2025 11/23/2024 Zoster Vaccines (1 of 2) 2050 RSV Patients and Patients Aged 60 years or older (1 - 1-dose 75+ series) 2075 Hepatitis B Vaccines Completed 07/14/2001, 2000, 2000 HIB Vaccines Completed 01/05/2002, 05/09, 04/13/2001, Additional history exists IPV Vaccines Completed 12/29/2005, 05/0 06/2002, 04/13/2001, Additional history exists Hepatitis A Vaccines Completed 06/22/2008, 08/13/20 07 HPV Vaccines Completed 07/20/2014, 02/06, 06/29/2013 Meningococcal Vaccine Completed 05/06/2017, 013 HIV Screening Completed 09/13/2023, 11/09, 12/06/2020 Hepatitis C Screening Completed 09/13/2023 , 12/06/2020, 09/03/2020 RSV under 20 months Aged Out No longe r eligible based on patient's age to complete this topic Rotavirus Vaccines Aged Out No longer eligible based on patient's age to complete this topic Procedures Procedure Name Priority Date/Time Associated Diagnosis Comments VITAMIN B12 Routine 12/04/2024 11:46 AM EST Crohn's disease of colon, with intestinal obstruction (CMS/HCC) IRON AND TOTAL IRON BINDING CAPACITY Routine 12/04/2024 11:46 AM EST Crohn's disease of colon, with intestinal obstruction (CMS/HCC) FERRITIN Routine 12/04/2024 11:46 AM EST Crohn's disease of colon, with intestinal obstruction (CMS/HCC) CBC WITH AUTO DIFFERENTIAL Routine 12/04/2024 11:46 AM EST Crohn's disease of colon, with intestinal obstruction (CMS/HCC) BASIC METABOLIC PANEL Routine 12/04/2024 11:46 AM EST Gender dysphoria HEPATIC FUNCTION PANEL Routine 12/04/2024 11:46 AM EST Gender dysphoria CHLAMYDIA/N. GONORRHOEAE RNA, TMA, UROGENITAL Routine 12/04/2024 11:46 AM EST Routine screening for STI (sexually transmitted infection) HEPATITIS C AB W/REFL TO HCV RNA, QN, PCR Routine 09/13/2023 12:31 PM EST Routine screening for STI (sexually transmitted infection) HIV 1/2 ANTIGEN/ANTIBODY, FOURTH GENERATION W/RFL Routine 09/13/2023 12:31 PM EST Routine screening for STI (sexually transmitted infection) from Last 3 Months or Most Recently Relevant to Health Maintenance Results * (ABNORMAL) CBC auto differential (12/04/2024 11:46 AM EST) White Blood Count 5.6 4.8 - 10.8 X10*3/uL [facility] Red Blood Count 4.19(L) 4.20 - 5.50 X10*6/uL [facility] Hemoglobin 12.7 12.0 - 16.0 g/dl [facility] Hematocrit 37.8 37.0 - 47.0 % [facility] Mean Corpuscular Volume 90.2 80.0 - 98.0 fL [facility] Mean Corpuscular Hemoglobin 30.3 27.0 - 33.0 pg [facility] Mean Corpuscular HGB Conc 33.6 31.0 - 35.0 g/dl [facility] Red Cell Distribution Width 13.2 11.0 - 16.0 % [facility] Platelet Count 332 160 - 400 X10*3/uL [facility] Mean Platelet Volume 9.9 9.4 - 12.3 fL [facility] Neutrophils Percent Auto 66.2 45 - 73 % [facility] Imm Gran Pct Auto 0.2 0.0 - 0.4 % [facility] Lymphocytes Percent Auto 22.2 20 - 40 % [facility] Monocytes Percent Auto 6.4 2 - 11 % [facility] Eosinophils Percent Auto 4.1(H) 0 - 4 % [facility] Basophils Percent Auto 0.9 0 - 2 % [facility] NRBC Pct Auto 0.0 0.0 - 0.2 /100WBC [facility] Neutrophils Absolute Auto 3.7 2.0 - 8.3 x10*3/uL [facility] Imm Gran Abs Auto 0.01 0.00 - 0.03 X10*3/uL [facility] Lymphocytes Absolute Auto 1.3 1.2 - 4.9 X10*3/uL [facility] Monocytes Absolute Auto 0.4 0.1 - 1.2 X10*3/uL [facility] Eosinophils Absolute Auto 0.2 0.0 - 0.4 X10*3/uL [facility] Basophils Absolute Auto 0.1 0.0 - 0.2 X10*3/uL [facility] NRBC Abs Auto 0.000 0.0 - 0.012 X10*3/uL [facility] Blood Venous blood specimen / Unknown 12/04/2024 11:46 AM EST 12/04/2024 1:22 PM EST Ariadna Tristan MD LAB BLOOD ORDERABLES Final Result Performing Organization Address [facility]/ZIP Co de Phone Number [facility] [address] [place] [phone] * Iron And Total Iron Binding Capacity (12/04/2024 11:46 AM EST) Iron 143 30 - 160 mcg/dL [facility] Total Iron Binding Capacity 287 228 - 428 mcg/dL [facility] Percent Iron Saturation 50 15 - 50 % [facility] Unsaturated Iron Binding 144 ug/dL [facility] Blood Venous blood specimen / Unknown 12/04/2024 11:46 AM EST 12/04/2024 1:22 PM EST Ariadna Tristan MD LAB BLOOD ORDERABLES Final Result Performing Organization Address [facility] de Phone Number [facility] [address] [place] [phone] * Chlamydia/N. Gonorrhoeae RNA, TMA, Urine (12/04/2024 11:46 AM EST) [facility] CT PCR NOT DETECTED Not Detect. [facility] Comment:A not detected test result [...] psychologicalconsequences. NG PCR NOT DETECTED Not Detect. [facility] Comment:A not detected test result [...] AM EST 12/04/2024 1:11 PM EST Narrative [facility] - 12/04/2024 3:28 PM EST Urine Ariadna Tristan MD LAB MICROBIOLOGY - GENERAL ORDERABLES Final Result Performing Organization Address [facility] Co de Phone Number [facility] [address] [place] [phone] * Ferritin (12/04/2024 11:46 AM EST) Ferritin 114 10 - 122 ng/mL [facility] Blood Venous blood specimen / Unknown 12/04/2024 11:46 AM EST 12/04/2024 1:22 PM EST Ariadna Tristan MD LAB BLOOD ORDERABLES Final Result Performing Organization Address [facility] Co de Phone Number [facility] [address] [place] [phone] * Vitamin B12 (12/04/2024 11:46 AM EST) Vitamin B12 496 200 - 900 pg/mL [facility] Comment:NORMAL 200-900 PG/ML INDETERMINATE 160-199 PG/ML DEFICIENT < 160 PG/ML Blood Venous blood specimen / Unknown 12/04/2024 11:46 AM EST 12/04/2024 1:22 PM EST Ariadna Tristan MD LAB BLOOD ORDERABLES Final Result Performing Organization Address [facility]/ZIP Co de Phone Number [facility] [address] [place] [phone] * (ABNORMAL) Hepatic Function Panel (12/04/2024 11:46 AM EST) Bilirubin, Total 0.5 0.0 - 1.0 mg/dL [facility] Bilirubin, Direct 0.2 0.0 - 0.5 mg/dL [facility] Aspartate Amino Transferase 25 5 - 31 U/L [facility] Alanine Aminotransferase 13 0 - 31 U/L [facility] Total Protein 8.4(H) 6.5 - 8.0 g/dL [facility] Albumin Level 4.1 3.5 - 5.0 g/dL [facility] Alkaline Phosphatase 74 39 - 117 U/L [facility] Blood Venous blood specimen / Unknown 12/04/2024 11:46 AM EST 12/04/2024 1:22 PM EST Ariadna Tristan MD LAB BLOOD ORDERABLES Final Result Performing Organization Address [facility] Co de Phone Number [facility] [address] [place] [phone] * (ABNORMAL) Basic Metabolic Panel (12/04/2024 11:46 AM EST) Sodium 136 135 - 145 mmol/L [facility] Potassium 3.7 3.3 - 5.1 mmol/L [facility] Chloride 105 96 - 108 mmol/L [facility] Carbon Dioxide 26 22 - 29 mmol/L [facility] Anion Gap 9(L) 12 - 20 [facility] Urea Nitrogen (BUN) 9 9 - 16 mg/dL [facility] Creatinine, Serum 0.82 0.5 - 1.4 mg/dL [facility] Estimated Glomerular Filt Rate >60 [facility] Comment:Chronic Kidney Disea se: Estimated GFR < 60 mL/min/[id number] Kidney Disease: Estimated GFR < 15 mL/min/1.73m2 Glucose 78 60 - 115 mg/dL [facility] Calcium 9.2 8.4 - 10.2 mg/dL [facility] Blood Venous blood specimen / Unknown 12/04/2024 11:46 AM EST 12/04/2024 1:22 PM EST Ariadna Tristan MD LAB BLOOD ORDERABLES Final Result Performing Organization Address City/[facility]/ZIP Co de Phone Number [facility] [address] [place] [phone] * Hepatitis C Antibody with Reflex to HCV, RNA, Quantitative, Real-Time PCR (09/13/2023 12:31 PM EST) Hepatitis C Antibody Nonreactive Nonreactive [facility] Comment:Antibodies to HCV no t detected; does not exclude early acuteHCV infection. Blood Venous blood specimen / Unknown 09/13/2023 12:31 PM EST 09/13/2023 1:07 PM EST Ariadna Tristan MD LAB BLOOD ORDERABLES Final Result Performing Organization Address [facility] Co de Phone Number [facility] [address] [place] [phone] * HIV-1/2 Antigen and Antibodies, Fourth Generation, with Reflexes (09/13/2023 12:31 PM EST) HIV AB/AG Nonreactive Nonreactive [facility] Comment:HIV-1 p24 Ag and/or HIV-1/HIV-2 Ab not detected.A test result that is nonreactive does not exclude thepossibility of exposure to or infection with HIV-1 and/orHIV-2. Nonreactive results in this assay for individualswith prior exposure to HIV-1 and/or HIV-2 may be due toantigen and antibody levels that are below the limit ofdetection of this assay.The [employer]ner[employer] HIV Ag/Ab Combo assay result andsupplemental assay results should be interpreted inconjunction with the patient's clinical presentation,history and other laboratory results. If the results areinconsistent with clinical evidence, additional testing issuggested to confirm the result. Blood Venous blood specimen / Unknown 09/13/2023 12:31 PM EST 09/13/2023 1:07 PM EST us Ariadna Tristan MD LAB BLOOD ORDERABLES Final Result [facility] [address] [place] [address] [phone] from Last 3 Months or Most Recently Relevant to Health Maintenance Insurance [facility] C3 HSN FULL Advance Directives Documents on File Type Date Recorded Patient Manufacturing Lead Expl anation Advance Directives and Living Will 05/31/2024 Health Care Proxy 05/31/24 Care Teams Fuel Storage Technician Relationship Specialty Start Date End Date [place], [place] Ariadna [address] [place] [id number] PCP - General Family Medicine 07/19/19
--- OUTSIDE RECORDS SUMMARY | 2024-12-04 16:34 | XMS_ITS | Encounter Summary ---
Author Organization [email or web address] Address [address] [place] [address] 7 [place] [address] Care Team Providers Care Vocational Trainer Name Role Phone Ariadna Tristan MD Primary Care Provider [phone]- [phone] Encounter Details Date Type Department Care Team (Latest Contact Info) Description 11/20/2024 Travel Social History Tobacco Use Types Packs/Day Years [...] Description 12/18/2024 11:00 AM EST Clinical Support [facility] [address] [place] [address] documented as of this encounter Visit Diagnoses Not on filedocumented in this encounter Additional Health Concerns Assessment Noted Time PHQ-9 Depression Total Score: 4 05/31/20 24 11:08 AM EDT documented as of this encounter Care Teams Vocational Trainer Relationship Specialty Start Date End Date Ariadna Tristan MD [address] [place] [address] PCP - General Family Medicine 07/19/19 documented as of this encounter
--- OUTSIDE RECORDS SUMMARY | 2024-12-04 16:34 | XMS_ITS | Encounter Summary ---
Author Organization [employer] Address [address] [facility] 7 [place] [address] Care Team Providers Care Head Cager Name Role Phone Ariadna Tritsan MD Primary Care Provider +1- [phone] Reason for Visit * Reason Comments Injections Encounter Details Date Type Department Care Team ([facility] Contact Info) Description 11/20/2024 11:00 AM EST Clinical Support [facility] [address] [place] [address] Gely Willis RN [address] [place] [address] Gender dysphoria Social History Tobacco Use Types [...] Progress Notes * Gely Willis RN - 11/20/2024 11:00 AM EST S: Pt here for Nurse visit to receive scheduled depo estradiol injection. Pt denies any difficulties with previous injection received or any significant side effects at thistime. O: Standing order verified. 5mg/1mL administered IM on left right vastus lateralis, pt tolerated well. A: Gender dysphoria P: Pt is interested on continuing with injections Pt agrees with plan and verbalized Scheduled next injection with green nurses. Had pharmacy refill her script for next appt. Pt states will pick it up. Gely Willis RN documented in this encounter Plan of Treatment Upcoming Encounters Date Type Department Care Team (Late st Contact Info) Description 12/18/2024 11:00 AM EST Clinical Support [facility] [address] [place] [address] documented as of this encounter Visit Diagnoses [...] documented as of this encounter Care Teams Head Cager Relationship Specialty Start Date End Date Ariadna Tristan MD [address] [place] [address] PCP - General Family Medicine 07/19/19 documented as of this encounter
--- OUTSIDE RECORDS SUMMARY | 2024-12-04 16:34 | XMS_ITS | Encounter Summary ---
Author Organization [employer] Address [address] [place] [address] 7 [place] [address] Care Team Providers Care Strategy Intern Name Role Phone Ariadna Tristan MD Primary Care Provider [phone]- [phone] Encounter Details Date Type Department Care Team (Latest Contact Info) Description 12/04/2024 Travel Social History Tobacco Use Types Packs/Day [...] Description 12/18/2024 11:00 AM EST Clinical Support [facility]ICINE [address] [place] [address] documented as of this encounter Visit Diagnoses Not on filedocumented in this encounter Additional Health Concerns Assessment Noted Time PHQ-9 Depression Total Score: 4 05/31/20 24 11:08 AM EDT documented as of this encounter Care Teams Strategy Intern Relationship Specialty Start Date End Date Ariadna Tristan MD [address] [place] [address] PCP - General Family Medicine 07/19/19 documented as of this encounter
--- OUTSIDE RECORDS SUMMARY | 2024-12-04 16:34 | XMS_ITS | Encounter Summary ---
Author Organization [employer] Address [address] [place] [address] 7 [place] [address] Care Team Providers Care Aerospace Engineer Name Role Phone Ariadna Tristan MD Primary Care Provider +1- [phone] Encounter Details Date Type Department Care Team ([facility] Contact Info) Description 05/28/2023 Abstract [facility] [address] [place] [address] Ariadna Tristan MD [address] [place] [address] Social History Tobacco Use Types Packs/Day Years Used Date Smoking Tobacco: Never Smokeless Tobacco: Never Alcohol Use Standard Drinks/Week Comments Never 0 (1 standard drink = 0.6 oz pur e alcohol) Depression Answer Date Recorded Patient Health Questionnaire-2 Score 0 10/29/2022 Sex and Gender Information Value Date Recorded Sex Assigned at Male 09/07/2022 10:23 AM EDT Legal Sex Female 10:23 AM EDT Gender Identity Transgender Female 09/07/2022 10 :23 AM EDT Sexual Orientation Choose not to disclose 2021 10:23 AM EDT COVID-19 Exposure Response Date Recorded In the last 10 days, have yo u been in contact with someone who was confirmed or suspected to have Coronavirus/COVID-19? No / Unsure 05/17/2023 11:23 AM EDT documented as of this encounter Plan of Treatment Upcoming Encounters Date Type Department Care Team (Late st Contact Info) Description 12/18/2024 11:00 AM EST Clinical Support [facility] [address] [place] [phone] documented as of this encounter Visit Diagnoses Not on filedocumented in this encounter Care Teams Aerospace Engineer Relationship Specialty Start Date End Date Ariadna Tristan MD [address] [place] [address] PCP - General Family Medicine 07/19/19 documented as of this encounter
[2024-12-05 08:13] LABS: Syphilis Screen Nonreactive (Nonreactive)
[2024-12-05 08:22] LABS: HIV AB/AG Nonreactive (Nonreactive); HIV Num 1 0.05 S/CO (0.00-0.99); ~HepC Num1 0.21 S/CO (0.00-0.79); ~Hepatitis C Antibody Nonreactive (Nonreactive)
[2024-12-08 17:24] LABS: Testosterone, Total 21 ng/dL (2-45)
[2024-12-14 06:14] LABS: Estradiol Free 1.05 pg/mL; Estradiol, Ultrasensitive 43 pg/mL
== END 2024-12-04 11:39 | disposition home or self-care (01) ==
LOC: HO.HHCL 11:38
PROVIDERS: Visit Provider Family Medicine
DX: Z11.3 Encounter for screening for infections with a predominantly sexual mode of transmission (principal); Z11.4 Encounter for screening for human immunodeficiency virus [HIV]; F64.9 Gender identity disorder, unspecified; K50.112 Crohn's disease of large intestine with intestinal obstruction
CPT/HCPCS: 80048; 80076; 82607; 82670; 82681; 82728; 83540; 84403; 85025; 86780; 86803; 87389; 87491; 87591

== ENCOUNTER 2024-12-06 06:48 | Inpatient (IN) | payer MEDICAID, SELFPAY ==
--- NOTE | ~2024-12-06 | CT_ITS ---
EXAMINATION: CT ABDOMEN AND PELVIS WITH CONTRAST CLINICAL INFORMATION: Worsened abdominal pain. COMPARISON: CT dated August 16, 2020. TECHNIQUE: Multidetector volumetric images were obtained from the superior aspect of the liver through the pubic symphysis following administration 85 mL of Omnipaque 350 intravenous contrast. Sagittal and coronal reformatted images were obtained on the technologist's workstation. Oral contrast: No This CT examination was performed using dose optimization techniques as appropriate, variously including the following: *Automated exposure control *Adjustment of mA and/or kV according to patient size (this includes techniques or standardized protocols for targeted exams where dose is matched to indication/reason for exam; i.e. extremities or head) *Use of iterative reconstruction technique DLP: 332 mGy centimeter. FINDINGS: LUNG BASES: No acute airspace disease in the included lungs. Bilateral breast implants. LIVER, GALLBLADDER, AND BILIARY TREE: Liver measures 16 cm. No focal mass. Main portal vein, hepatic veins and intrahepatic portion of the IVC are patent. No pericholecystic fluid collection or gallbladder wall thickening. The gallbladder is nondistended. The common bile duct measures 3 mm. PANCREAS: No focal mass. No peripancreatic fluid collection. No main pancreatic ductal dilatation. SPLEEN: 10 cm. No focal mass. ADRENAL GLANDS: No nodular lesions. KIDNEYS AND URETERS: No gross renal mass. No hydronephrosis. No gross nephrolithiasis. BLADDER: Fluid-filled nearly collapsed. GASTROINTESTINAL TRACT: There is a segmental area of wall thickening distal ileal loops/terminal ileum with the questionable focal intussusception resulting in fecaloid material in the distal ileal loops and gas and fluid levels in a prominent ileal loops. The jejunal loops are collapsed with normal size diameter. Status post appendectomy. Ascites, small volume in the pelvic peritoneal cavity. No pneumoperitoneum. No pneumatosis intestinalis. No peripheral enhancing fluid collections, peritoneal cavity. ABDOMINAL WALL: No gross hernia. LYMPH NODES: No lymphadenopathy. VASCULAR: No aneurysm or dissection, abdominal aorta. PELVIC VISCERA: Normal-sized prostate gland OSSEOUS STRUCTURES: Probable bony island in the right femoral head. No acute fracture or listhesis in the axial skeleton. Bony pelvis is intact. Mild sclerosis and the femoral heads bilaterally. CT/CT abdomen pelvis w IV con IMPRESSION: Consider acute Crohn's disease with questionable intussusception, ileocecal resulting in partial/incomplete distal small bowel obstruction. 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 Discussed with Sofia Maldonaod physician sales assistant institutional sales in the emergency department at 10:22 AM. Fleischner guidelines were followed. Electronically signed by: Oliverio Avalos MD 12/06/2024 10:34 AM [facility]
[2024-12-06 07:11] VITALS: BP 114/39; PULSE 88; RESP 22; TEMP 36.7; O2SAT 100; BMI 19.4
--- NOTE | 2024-12-06 07:35 | ED.GENADULT ---
HPI - General Adult General Chief complaint: Abdominal Pain Stated complaint: cramps, vomiting Time Seen by Provider: 12/06/24 07:34 Source: patient and family (patient's mother) Mode of arrival: ambulatory Limitations: no limitations History of Present Illness ED Provider: Sofia Maldonado PA-C HPI narrative: Patient is a 24 year old assigned female at with a history of Crohn's disease and GERD presenting to the emergency department today with abdominal pain / cramping, nausea, and vomiting. Patient states that she has had abdominal pain, nausea, and vomiting since yesterday. Patient states that it feels like a crohn's flare. Patient states that she is not on any medication for her Crohn's and does not currently have a GI specialist. Patient denies any dizziness, lightheadedness, fever, chills, blurry vision, double vision, loss of vision, chest pain, difficulty breathing, shortness of breath, back pain, night sweats, pain with urination, increased urinary frequency, increased urinary urgency, blood in her urine or stool, syncope or a near syncopal episode, recent trauma or falls, bowel incontinence, bladder incontinence, or any other complaints at this time. Onset (ago): day(s) (1) Relieving factors: none Exacerbating factors: none Associated symptoms: nausea/vomiting Treatments prior to arrival: none Related Data Home Medications ?Medication ?Instructions ?Recorded ?Confirmed estradiol cypionate 5 mg/mL 5 mg IM Q2W 12/06/24 12/06/24 intramuscular oil (Depo-Estradiol) multivitamin 1 tab PO DAILY 12/06/24 12/06/24 spironolactone 100 mg tablet 100 mg PO DAILY 12/06/24 12/06/24 Allergies Allergy/AdvReac Type Severity Reaction Status Date / Time peach [PEACH] Allergy Severe ITCHY Verified 12/06/24 07:15 THROAT pear [PEAR] Allergy Severe ITCHY Verified 12/06/24 07:15 THROAT plum [PLUM] Allergy Severe ITCHY Verified 12/06/24 07:15 THROAT apples Allergy Mild itchy Uncoded 03/02/24 11:14 throat seasonal Allergy Unknown runny nose Uncoded 03/02/24 11:14 Review of Systems Constitutional: Constitutional: Reports no additional constitutional complaints, Denies chills, Denies fever(s) and Denies night sweats Eyes: Eyes: Reports no additional eye complaints, Denies blurry vision, Denies change in vision, Denies diplopia, Denies eye discharge, Denies loss of vision and Denies eye pain ENT: Denies dizziness Cardiovascular: Cardiovascular: Reports no additional cardiovascular complaints, Denies chest pain, Denies lightheadedness, Denies Loss of Consciousness and Denies dyspnea Respiratory: Respiratory: Reports no additional respiratory complaints and Denies dyspnea Gastrointestinal: Gastrointestinal: Reports no additional gastrointestinal complaints, Reports abdominal pain, Denies melena, Denies hematochezia, Denies change in bowel habits, Denies change in stool character, Reports nausea and Reports vomiting Genitourinary: Genitourinary: Denies hematuria, Denies urinary frequency, Denies dysuria, Denies urinary incontinence, Denies urinary hesitancy and Denies urinary urgency Musculoskeletal: Musculoskeletal: Reports no additional musculoskeletal complaints, Denies numbness and Denies tingling Neurologic: Denies dizziness, Denies loss of vision, Denies numbness and Denies tingling Psychiatric: Psychiatric: Reports no additional psychiatric complaints Endocrine: Endocrine: Reports no additional endocrine complaints Hematologic/Lymphatic: Hematologic/Lymphatic: Reports no additional hematologic/lymphatic complaints Allergic/Immunologic: Allergic/Immunologic: Reports no additional allergic/immunologic complaints PMFSH Past Medical History Attestation statement: The following information was validated with the patient. (all information validated with the patient's mother) Source: old records reviewed, obtained from family (patient's mother provided additional history and confirmed the history provided by the patient) and nursing notes reviewed Medical History (Updated 12/06/24 @ 13:13 by CARLOS Pope) Partial small bowel obstruction Crohn's disease Surgical History Hx of endoscopy History of colonoscopy History of colonoscopy Family History Family History Father Alive and well Mother Alive and well Social History Social History Household Members: Family Alcohol intake: current Alcohol intake frequency: a few times a month Patient Tobacco Use Status: Current someday Tobacco user Smoked in Last 30 Days: No Use of substances other than those prescribed or required for medical reasons: No Substance Use Type: Marijuana Advance Directives: No Advance Directives Information Provided: Yes Do you have a plan to hurt others: No Plan Patient : No Physical Exam ED Vital Signs: Vital Signs - 24 hr 12/06/24 07:11 12/06/24 07:50 12/06/24 09:31 Temperature 98.1 F Pulse Rate 88 Respiratory Rate 22 H 20 18 Blood Pressure 114/39 L Pulse Oximetry 100 Oxygen Delivery Method Room Air BMI result Body Mass Index 19.4 Const General: cooperative, no acute distress, alert and awake Nutritional Appearance: well nourished Orientation/consciousness: patient oriented x3 Limitations: no limitations HENMT Head: Yes normal to inspection and Yes atraumatic Ears: hearing grossly normal bilaterally and external ears normal General nose exam: Normal external nose present, no nasal discharge noted and no epistaxis Face and sinus: Yes normal facial exam, No abrasion and No laceration Mouth: Normal oral and palatal mucosa present, no drooling and no muffled voice Eyes General: appearance normal, both eyes and all related structures Periorbital: periorbital findings normal Eyelids: Yes eyelids normal Conjunctivae: conjunctivae normal Pupils: Equal, round and reactive pupils present EOM: EOMs intact bilaterally Neck Neck: Yes normal visual inspection, Yes full ROM and Yes no lymphadenopathy Chest Chest palpation & inspection: normal inspection of the chest Resp Effort & Inspection: normal respiratory effort and able to speak in complete sentences GI Inspection: Yes normal to inspection Palpation (GI): Soft to palpation, not firm, Tenderness to palpation present (GI) in the LLQ, in the RLQ, in the LUQ and in the RUQ, no guarding and not rigid Neuro General: patient oriented x3 and moves all extremities Cranial nerves: Yes Equal, round and reactive pupils present Cognition (Neuro): normal cognition Extrem General: Yes normal to inspection, Yes full ROM and Yes capillary refill normal Psych Appearance: grossly normal Mental Status: mental status grossly normal Affect: normal affect Attitude: cooperative Thought process: Normal thought process present Thought content: Normal thought content present Insight: Good insight present (Psych) Medications Administered Generic Name Dose Route Start Last Admin Trade Name Freq PRN Reason Stop Dose Admin Lactated Ringer's 1,000 mls @ 100 mls/hr 12/06/24 12:00 12/06/24 12:03 Lr IVCONT 100 mls/hr .Q10H MECHE Administration Ketorolac Tromethamine 15 mg 12/06/24 11:51 12/06/24 12:08 Ketorolac Tromethamine 15 Mg/Ml Vial IVPUSH 15 mg Q6H PRN Administration Pain, Severe (Pain Scale 7-10) Magnesium Hydroxide 30 ml 12/06/24 11:32 12/06/24 12:12 Milk Of Magnesia 30 Ml Oral.Susp PO 30 ml DAILY PRN Administration Constipation Discontinued Medications Generic Name Dose Route Start Last Admin Trade Name Laly PRN Reason Stop Dose Admin Hydromorphone HCl 1 mg 12/06/24 09:26 12/06/24 09:31 Hydromorphone Hcl 1 Mg/Ml Syringe IVPUSH 12/06/24 09:27 1 mg ONCE ONE Administration Protocol Iohexol 100 ml 12/06/24 09:53 12/06/24 09:53 Iohexol 350 Mg/Ml 100 Ml Infus..Btl IV 12/06/24 09:54 85 ml ONCE ONE Administration Morphine Sulfate 4 mg 12/06/24 07:35 12/06/24 07:50 Morphine Sulfate 4 Mg/Ml Cartridge IVPUSH 12/06/24 07:36 4 mg ONCE ONE Administration Protocol Ondansetron HCl 4 mg 12/06/24 07:35 12/06/24 07:50 Ondansetron Hcl 4 Mg/2 Ml Vial IVPUSH 12/06/24 07:36 4 mg ONCE ONE Administration Medical Decision Making Medical Decision Making [facility] Narrative: Patient is a 24 year old assigned female at with a history of Crohn's disease and GERD presenting to the emergency department today with abdominal pain / cramping, nausea, and vomiting. Patient's physical exam was as noted in the physical exam portion of this note. Patient's blood work showed a WBC count of 11.7 but otherwise unremarkable. 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 I consulted with Dr. Shay the general surgeon incident response manager who recommended admission to his service and a GI consult. Given the patient has previously seen Dr. Mcgowan, I reached out to Dr. López who was covering and informed him of the consult request. Given the patient's findings of possible / probable early bilateral avascular necrosis of the femoral heads - I consulted with orthopedics who stated outpatient follow up is appropriate. I explained my physical exam findings as well as all test results to the patient. I answered all questions asked by the patient. Patient received IV Morphine and Dilaudid which, upon re-evaluation, she stated it helped her symptoms some. Patient and the patient's mother verbalized agreement and understanding with this treatment plan and admission. Differential Diagnosis Differential Diagnoses: The differential diagnosis associated with the presentation includes Crohn's flare SBO Partial SBO Intussception Avascular necrosis Admission/Observation Consideration of admission/observation: Escalation of care including admission/observation considered Patient admitted as noted in the MDM Rationale portion of this note. Consult Healthcare Provider Management of the patient was discussed with: Solid Propellant Processor (spoke to general surgery, GI, and ortho as noted in the MDM Rationale portion of this note.) Lab Data [facility] Lab Attestation statement: I reviewed the patient's lab results. My interpretation of these results are in the MDM Rationale portion of this note. 12/06/24 07:45 12/06/24 07:45 Labs: Lab Results 12/06/24 12/06/24 Range/Units 07:45 09:52 WBC 11.7 H (4.8-10.8) X10*3/uL RBC 4.40 (4.20-5.50) X10*6/uL Hgb 13.3 (12.0-16.0) g/dl Hct 38.6 (37.0-47.0) % MCV 87.7 (80.0-98.0) fL MCH 30.2 (27.0-33.0) pg MCHC 34.5 (31.0-35.0) g/dl RDW 12.8 (11.0-16.0) % Plt Count 359 (160-400) X10*3/uL MPV 9.6 (9.4-12.3) fL Immature Gran % (Auto) 0.3 (0.0-0.4) % Neut % (Auto) 83.6 H (45-73) % Lymph % (Auto) 10.4 L (20-40) % [place] % (Auto) 5.0 (2-11) % Eos % (Auto) 0.3 (0-4) % Baso % (Auto) 0.4 (0-2) % Lymph # (Auto) 1.2 (1.2-4.9) X10*3/uL [place] # (Auto) 0.6 (0.1-1.2) X10*3/uL Eos # (Auto) 0.0 (0.0-0.4) X10*3/uL Baso # (Auto) 0.1 (0.0-0.2) X10*3/uL Abs Immat Gran (auto) 0.03 (0.00-0.03) X10*3/uL Absolute Neuts (auto) 9.8 H (2.0-8.3) x10*3/uL Absolute Nucleated RBC 0.000 (0.0-0.012) X10*3/uL Nucleated RBC % (auto) 0.0 (0.0-0.2) /100WBC Sodium 136 (135-145) mmol/L Potassium 3.9 (3.3-5.1) mmol/L Chloride 102 (96-108) mmol/L Carbon Dioxide 23 (22-29) mmol/L Anion Gap 15 (12-20) BUN 7 L (9-16) mg/dL Creatinine 0.76 (0.5-1.4) mg/dL Estim Creat Clear Calc 101.4 Estimated GFR > 60 Random Glucose 118 H (60-115) mg/dL Calcium 10.0 D (8.4-10.2) mg/dL Magnesium 1.9 (1.6-2.6) mg/dL Total Bilirubin 0.6 (0.0-1.0) mg/dL Direct Bilirubin 0.2 (0.0-0.5) mg/dL AST 24 (5-31) U/L ALT 8 (0-31) U/L Alkaline Phosphatase 82 (39-117) U/L Total Protein 9.2 H (6.5-8.0) g/dL Albumin 4.5 (3.5-5.0) g/dL Lipase 12 (8-78) U/L Beta HCG, Quant < 2 mIU/mL Influenza Type A (PCR) NEGATIVE (Negative) Influenza Type B (PCR) NEGATIVE (Negative) RSV RNA Qual (PCR) NEGATIVE (Negative) SARS-CoV-2 RNA (RT-PCR) NEGATIVE (Negative) Independent Interpretation I performed an independent interpretation of an: CT Scan Interpretation: My interpretation is in agreement with the radiologist's impression of this imaging study. Report Number: [id number]: Total DLP = 332.00 mGy-cm EXAMINATION: CT ABDOMEN AND PELVIS WITH CONTRAST CLINICAL INFORMATION: Worsened abdominal pain. COMPARISON: CT dated August 16, 2020. TECHNIQUE: Multidetector volumetric images were obtained from the superior aspect of the liver through the pubic symphysis following administration 85 mL of Omnipaque 350 intravenous contrast. Sagittal and coronal reformatted images were obtained on the technologist's workstation. Oral contrast: No This CT examination was performed using dose optimization techniques as appropriate, variously including the following: *Automated exposure control *Adjustment of mA and/or kV according to patient size (this includes techniques or standardized protocols for targeted exams where dose is matched to indication/reason for exam; i.e. extremities or head) *Use of iterative reconstruction technique DLP: 332 mGy centimeter. FINDINGS: LUNG BASES: No acute airspace disease in the included lungs. Bilateral breast implants. LIVER, GALLBLADDER, AND BILIARY TREE: Liver measures 16 cm. No focal mass. Main portal vein, hepatic veins and intrahepatic portion of the IVC are patent. No pericholecystic fluid collection or gallbladder wall thickening. The gallbladder is nondistended. The common bile duct measures 3 mm. PANCREAS: No focal mass. No peripancreatic fluid collection. No main pancreatic ductal dilatation. SPLEEN: 10 cm. No focal mass. ADRENAL GLANDS: No nodular lesions. KIDNEYS AND URETERS: No gross renal mass. No hydronephrosis. No gross nephrolithiasis. BLADDER: Fluid-filled nearly collapsed. GASTROINTESTINAL TRACT: There is a segmental area of wall thickening distal ileal loops/terminal ileum with the questionable focal intussusception resulting in fecaloid material in the distal ileal loops and gas and fluid levels in a prominent ileal loops. The jejunal loops are collapsed with normal size diameter. Status post appendectomy. Ascites, small volume in the pelvic peritoneal cavity. No pneumoperitoneum. No pneumatosis intestinalis. No peripheral enhancing fluid collections, peritoneal cavity. ABDOMINAL WALL: No gross hernia. LYMPH NODES: No lymphadenopathy. VASCULAR: No aneurysm or dissection, abdominal aorta. PELVIC VISCERA: Normal-sized prostate gland OSSEOUS STRUCTURES: Probable bony island in the right femoral head. No acute fracture or listhesis in the axial skeleton. Bony pelvis is intact. Mild sclerosis and the femoral heads bilaterally. CT/CT abdomen pelvis w IV con IMPRESSION: Consider acute Crohn's disease with questionable intussusception, ileocecal resulting in partial/incomplete distal small bowel obstruction. 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 Discussed with Sofia Maldonado physician sociology research assistant in the emergency department at 10:22 AM. Fleischner guidelines were followed. Electronically signed by: Oliverio Avalos MD 12/06/2024 10:34 AM [facility] Dictated By: Oliverio Babcock MD Signed By: Electronically signed by Oliverio Willis MD 12/06/24 1034 Radiology Impression Discussion of test interpretation with radiology: I have reviewed the radiologist's reading. Independent Historian Clinical information obtained from an independent historian. History obtained from or confirmed by: Parent (patient's mother provided additional history and confirmed the history provided by the patient.) Critical Care Time Critical Care Time Critical Care Time: Yes Total Critical Care Time: 44 Attestation: I spent 44 minutes of Critical Care Time with this patient. This does not include time spent on separately reported billable procedures. Discharge Plan Discharge Clinical Impression: Crohn's disease, Partial small bowel obstruction, Intussusception Patient Disposition: Admitted As Inpatient
--- OUTSIDE RECORDS SUMMARY | 2024-12-06 07:47 | XMS_ITS | Clinical Summary ---
Author Organization [employer] Address [address] [place] [address] 7 [place] [address] Care Team Providers Care Shift Superintendent Caustic Cresylate Name Role Phone Ariadna Tristan MD Primary Care Provider +1- [phone] Allergies Active Allergy Reactions Criticality Noted Date Comments Apple Juice 05/05/2023 Bromide Pulp 05/05/2023 Prunus Persica 05/05/2023 Octacosanol 05/05/2023 [...] annual evaluation due after 11/23/25 -referred to [facility] -do not have a dental home, encouraged to get established -health care proxy filed 05/31/24 Assessment & Plan (11/23/2024 10:32 AM EST): -next comprehensive annual evaluation due after 11/23/25 -referred to [facility] -do not have a dental home, encouraged to get established -health care proxy filed 05/31/24 Assessment & Plan (05/31/2024 10:49 AM EDT): -next physical exam due after 09/13/2024 -referred to [facility] -do not have a [...] symptoms, got established with Dr. López in [place] an started on Humira with improved symptoms. She left the state and was off medications and would like a referral to GI at [facility]. Symptoms currently controlled off medication. -referral to [facility] 03/12/2023 -Pt would like to go back to Dr. Nelson, she had left the area. Referral placed -Admitted 11/08/23 to [facility] for small bowel obstruction , Crohn's disease of both small and large intestine with intestinal obstruction -denies being on Humira currently, Crohn's well controlled 05/31/24. Not following with specialist, but will call [facility] to schedule with new specialist. 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 López in [place] an started on Humira with improved symptoms. She left the state and was off medications and would like a referral to GI at [facility]. Symptoms currently controlled off medication. -referral to [facility] 03/12/2023 -Pt would like to go back to Dr. Nelson, she had left the area. Referral placed -Admitted 11/08/23 to [facility] for small bowel obstruction , Crohn's disease of both small and large intestine with intestinal obstruction -denies being on Humira currently, Crohn's well controlled 05/31/24. Not following with specialist, but will call [facility] to schedule with new specialist. -re-referred to GI 11/23/24 Assessment & Plan (05/31/2024 10:44 AM EDT): Pt has ileocolonic Crohn's disease, 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 López in [place] an started on Humira with improved symptoms. She left the state and was off medications and would like a referral to GI at [facility]. Symptoms currently controlled off medication. -referral to [facility] 03/12/2023 -Pt would like to go back to Dr. Nelson, she had left the area. Referral placed -Admitted 11/08/23 to [facility] for small bowel obstruction , Crohn's disease of both small and large intestine with intestinal obstruction -denies being on Humira currently, Crohn's well controlled 05/31/24. Not following with specialist, but will call [facility] to schedule with new specialist. Assessment [...] symptoms, got established with Dr. López in [place] an started on Humira with improved symptoms. She left the state and was off medications and would like a referral to GI at [facility]. Symptoms currently controlled off medication. -referral to [facility] 03/12/2023 -Pt would like to go [...] symptoms, got established with Dr. López in [place] an started on Humira with improved symptoms. She left the state and was off medications and would like a referral to GI at [facility]. Symptoms currently controlled off medication. -referral to [facility] 03/12/2023 Protein-calorie malnutrition 03/24/2018 Assessment & [...] Description 12/04/2024 11:00 AM EST Clinical Support [address] [id number] Gely Willis, KEILY Gender dysphoria 12/04/2024 Travel 11/23/2024 10:00 AM EST Office Visit [address] [address] Ariadna Tristan MD Crohn's disease of colon, with intestinal obstruction (CMS/HCC) (Primary Dx); Mild intermittent asthma, unspecified whether complicated; Gender dysphoria; Routine screening for STI (sexually transmitted infection); Other specified health status; Sexually transmitted disease counseling 11/22/[address] [address] Mag Holloway [place] 11/20/2024 11:00 AM EST Clinical Support [address] [address] Gely Willis, KEILY Gender dysphoria 11/20/2024 Travel 11/13/2024 Patient Outreach [address] [address] Ariadna Tristan MD Pre-visit Planning (SDOH Screening negative and Tobacco screening negative) 11/02/2024 2:00 PM EST Clinical Support [address] [address] Gely Willis, RN Gender dysphoria 11/02/2024 Travel 10/18/2024 2:00 PM EST Clinical Support [address] [address] Gely Willis, RN Gender dysphoria 10/18/2024 Travel 09/29/2024 Telephone [facility] [address] [place] [address] Rachele Nicholson OD 09/26/2024 2:30 PM EST Clinical Support [address] [address] Gely Willis, RN Gender dysphoria 09/26/2024 Travel 09/26/[address] [address] iLnn Aguilar [place] November09/12/2024 2:30 PM EST Clinical Support [address] [address] Gely Willis, RN Gender dysphoria 09/12/2024 Travel [...] Description 12/18/2024 11:00 AM EST Clinical Support [facility] [address] [place] [address] Health Maintenance Due Date Last Done Comments Family Planning (PISQ) 2015 Influenza Vaccine (#1) 2025 6, 07/12/2015, 07/20/2014, Additional history exists Postponed from 07/09/2024 (Patient Refused) DTaP/Tdap/Td Vaccines (7 - Td or Tdap) 05/31/2025 06/10/2012, 07/16/2005, 05/17/2002, Additional history exists Postponed from 06/10/2022 (Patient Refused) Depression Screening 05/31/2025 05/31/2024, 05/31/20 24 Pneumococcal Vaccine: Pediatrics (0 to 5 Years) and At-Risk Patients (6 to 49) Years) (1 of 1 - PPSV23 or PCV20) 05/31/2025 07/16/2005, 07/14/2001, 04/13/2001, Additional history exists Postponed from 2006 (Patient Refused) SDOH Screening 11/13/2025 11/13/2024 Alcohol/Substance Use Screening 11/23/2025 11/23/2024 COVID-19 Vaccine (1 - season) 2025 Postponed from 07/09/2024 (Patient Refused) Tobacco Screening 11/23/2025 11/23/2024 Zoster Vaccines (1 of 2) 2050 RSV Patients and Patients Aged 60 years or older (1 - 1-dose 75+ series) 2075 Hepatitis B Vaccines Completed 07/14/2001, 2000, 2000 HIB Vaccines Completed 01/05/2002, 05/09, 04/13/2001, Additional history exists IPV Vaccines Completed 12/29/2005, 06/2002, 04/13/2001, Additional history exists Hepatitis A Vaccines Completed 06/22/2008, 08/13/20 07 HPV Vaccines Completed 07/20/2014, 02/06, 06/29/2013 Meningococcal Vaccine Completed 05/06/2017, 013 HIV Screening Completed 12/04/2024, 04/2023, 12/06/2020, Additional history exists Hepatitis C Screening Completed 12/04/2024 , 09/13/2023, 12/06/2020, Additional history exists RSV under 20 months Aged Out No longe r eligible based on patient's age to complete this topic Rotavirus Vaccines Aged Out No longer eligible based on patient's age to complete this topic Procedures Procedure Name Priority Date/Time Associated Diagnosis Comments SYPHILIS SCREEN Routine 12/04/2024 11:46 AM EST Routine screening for STI (sexually transmitted infection) HEPATITIS C AB W/REFL TO HCV RNA, QN, PCR Routine 12/04/2024 11:46 AM EST Routine screening for STI (sexually transmitted infection) HIV 1/2 ANTIGEN/ANTIBODY, FOURTH GENERATION W/RFL Routine 12/04/2024 11:46 AM EST Routine screening for STI (sexually transmitted infection) VITAMIN B12 Routine 12/04/2024 11:46 AM EST [...] (sexually transmitted infection) from Last 3 Months Results * Syphilis Screen (12/04/2024 11:46 AM EST) Syphilis Screen Nonreactive Nonreactive [facility] Blood Venous blood specimen / Unknown 12/04/2024 11:46 AM EST 12/04/2024 1:22 PM EST us Ariadna Tristan MD LAB BLOOD ORDERABLES Final Result [facility] [address] [place] [phone] [phone] * (ABNORMAL) CBC auto differential (12/04/2024 [...] BLOOD ORDERABLES Final Result Performing Organization Address [facility]/ZIP Co de Phone Number [facility] [address] [place] [phone] * Hepatitis C Antibody with Reflex to HCV, RNA, Quantitative, Real-Time PCR (12/04/2024 11:46 AM EST) Pathologist [facility] Hepatitis C Antibody Nonreactive Nonreactive [facility] Comment:Antibodies to HCV no t detected; does not exclude early acuteHCV infection. Blood Venous blood specimen / Unknown 12/04/2024 11:46 AM EST 12/04/2024 1:22 PM EST Ariadna Tristan MD LAB BLOOD ORDERABLES Final Result Performing Organization Address [facility] Co de Phone Number [facility] [address] [place] [address] [phone] * Iron And Total Iron Binding Capacity (12/04/2024 11:46 AM EST) Iron 143 30 - 160 mcg/dL [facility] [...] Tristan MD LAB BLOOD ORDERABLES Final Result [facility] [address] [place] [address] [phone] * Chlamydia/N. Gonorrhoeae RNA, TMA, Urine [...] GENERAL ORDERABLES Final Result Performing Organization Address City/[facility]/ZIP Co de Phone Number [facility] [address] [place] [phone] * HIV-1/2 Antigen and Antibodies, Fourth Generation, with Reflexes (12/04/2024 11:46 AM EST) HIV AB/AG Nonreactive Nonreactive [facility] Comment:HIV-1 p24 Ag and/or HIV-1/HIV-2 Ab not detected.A test result that is nonreactive does not exclude thepossibility of exposure to or infection with HIV-1 and/orHIV-2. Nonreactive results in this assay for individualswith prior exposure to HIV-1 and/or HIV-2 may be due toantigen and antibody levels that are below the limit ofdetection of this assay.The [employer] HIV Ag/Ab Combo assay result andsupplemental assay results should be interpreted inconjunction with the patient's clinical presentation,history and other laboratory results. If the results areinconsistent with clinical evidence, additional testing issuggested to confirm the result. Blood Venous blood specimen / Unknown 12/04/2024 11:46 AM EST 12/04/2024 1:22 PM EST Ariadna Tristan MD LAB BLOOD ORDERABLES Final Result Performing Organization Address City/[facility]/ZIP Co de Phone Number [facility] [address] [place] [phone] [phone] * Ferritin (12/04/2024 11:46 AM EST) Ferritin 114 10 - 122 ng/mL [facility] Blood Venous blood specimen / Unknown 12/04/2024 11:46 AM EST 12/04/2024 1:22 PM EST Ariadna Tristan MD LAB BLOOD ORDERABLES Final Result Performing Organization Address [facility] Co de Phone Number [facility] [address] [place] [phone] * Vitamin B12 (12/04/2024 11:46 AM EST) Vitamin B12 496 200 - 900 pg/mL [facility] Comment:NORMAL 200-900 PG/ML INDETERMINATE 160-199 PG/ML DEFICIENT < 160 PG/ML Blood Venous blood specimen / Unknown 12/04/2024 11:46 AM EST 12/04/2024 1:22 PM EST Ariadna Tristan MD LAB BLOOD ORDERABLES Final Result Performing Organization Address [facility] Phone Number [facility] [address] [place] [phone] * (ABNORMAL) Hepatic Function Panel (12/04/2024 [...] BLOOD ORDERABLES Final Result Performing Organization Address City/[facility] Co de Phone Number [facility] [address] [place] [phone] * (ABNORMAL) Basic Metabolic Panel (12/04/2024 [...] Kidney Disea se: Estimated GFR < 60 mL/min/1.27b4Qedncq Kidney Disease: Estimated GFR < 15 mL/min/1.73m2 Glucose 78 60 - 115 mg/dL [facility] Calcium 9.2 8.4 - 10.2 mg/dL [facility] Blood Venous blood specimen / Unknown 12/04/2024 11:46 AM EST 12/04/2024 1:22 PM EST us Ariadna Tristan MD LAB BLOOD ORDERABLES Final Result [facility] [address] [place] [phone] [phone] from Last 3 Months [facility] Advance Directives Documents on File Type Date Recorded Patient Hangar Attendant Expl anation Advance Directives and Living Will 05/31/2024 Health Care Proxy 05/31/24 Care Teams Shift Superintendent Caustic Cresylate Relationship Specialty Start Date End Date [place], [place] Ariadna [address] [place] [phone] PCP - General Family Medicine 07/19/19
--- OUTSIDE RECORDS SUMMARY | 2024-12-06 07:47 | XMS_ITS | Referral Summary ---
Author Organization [facility] Address [address] [place] [address] Care Team Providers Care Fire Investigation Lieutenant Name Role Phone Ariadna Tristan Primary Care Provider +1- [phone] Allergies No known active allergies Medications estradioL [...] Not on file Insurance [place] Care Teams Fire Investigation Lieutenant Relationship Specialty Start Date End Date Ariadna Tristan [address] [place] [id number] PCP - General Family Medicine 02/07/21
--- OUTSIDE RECORDS SUMMARY | 2024-12-06 07:47 | XMS_ITS | Encounter Summary ---
Author Organization [employer] Address [address] [place] [address] 7 [place] [address] Care Team Providers Care Air Conditioning Technician Name Role Phone Ariadna Tristan MD Primary Care Provider +1- [phone] Encounter Details Date Type Department Care Team ([facility] Contact Info) Description 05/28/[address] [facility] [address] [place] [phone] Ariadna Tristan MD [address] [place] [phone] Social History Tobacco Use Types Packs/Day Years [...] 11:00 AM EST Clinical Support [facility] [address] [place] [address] documented as of this encounter Visit Diagnoses Not on filedocumented in this encounter Care Teams Air Conditioning Technician Relationship Specialty Start Date End Date Ariadna Tristan MD [address] [place] [address] PCP - General Family Medicine 07/19/19 documented as of this encounter
--- OUTSIDE RECORDS SUMMARY | 2024-12-06 07:47 | XMS_ITS | Encounter Summary ---
Author Organization [employer] Address [address] [facility] 7 [place] [address] Care Team Providers Care Nightman Name Role Phone Ariadna Tristan MD Primary Care Provider +1- [phone] Reason for Visit * Reason Comments Injections Encounter Details Date Type Department Care Team ([facility] Contact Info) Description 11/20/2024 11:00 AM EST Clinical Support [facility] [address] [place] [address] Gely Willis RN [address] [place] [address] Gender dysphoria Social History Tobacco Use Types [...] Description 12/18/2024 11:00 AM EST Clinical Support [facility] [address] [place] [address] documented as of this encounter Visit Diagnoses [...] documented as of this encounter Care Teams Nightman Relationship Specialty Start Date End Date Ariadna Tristan MD [address] [place] [address] PCP - General Family Medicine 07/19/19 documented as of this encounter
--- OUTSIDE RECORDS SUMMARY | 2024-12-06 07:47 | XMS_ITS | Clinical Summary ---
Author Organization [facility] Address [address] [place] [address] Care Team Providers Care Architect Name Role Phone Ariadna Tristan Primary Care Provider +1- [phone] Allergies No known active allergies Medications estradioL [...] patient's age to complete this topic [place] [address] [place] [address] Care Teams Architect Relationship Specialty Start Date End Date Azale[place], Ariadna Jarvis [address] [place] [address] PCP - General Family Medicine 02/07/21
--- OUTSIDE RECORDS SUMMARY | 2024-12-06 07:47 | XMS_ITS | Encounter Summary ---
Author Organization [employer] Address [address] [facility] 7 [place] [address] Care Team Providers Care Gem Carver Name Role Phone Ariadna Tristan MD Primary Care Provider +1- [phone] Reason for Visit * Reason Comments Med Refill Encounter Details Date Type Department Care Team ([facility] st Contact Info) Description 02/29/2024 Refill [facility] [address] [place] [address] Ariadna Tristan MD [address] [place] [address] Social History Tobacco Use Types Packs/Day Years [...] 12/18/2024 11:00 AM EST Clinical Support [facility] [address] [place] [address] documented as of this encounter Visit Diagnoses Not on filedocumented in this encounter Care Teams Gem Carver Relationship Specialty Start Date End Date Ariadna Tristan MD [address] [place] [address] PCP - General Family Medicine 07/19/19 documented as of this encounter
--- OUTSIDE RECORDS SUMMARY | 2024-12-06 07:47 | XMS_ITS | Encounter Summary ---
Author Organization [employer] Address [address] [facility] 7 [place] [address] Care Team Providers Care Patrol Community Service Officer Name Role Phone Ariadna Tristan MD Primary Care Provider +1- [phone] Reason for Visit * Reason Comments Pre-visit Planning SDOH Screening negat josiah and Tobacco screening negative Encounter Details Date Type Department Care Team ([facility] st Contact Info) Description 11/13/2024 Patient Outreach [facility] [address] [place] [address] Ariadna Tristan MD [address] [place] [address] Pre-visit Planning (SDOH Screening negative and Tobacco [...] 11:00 AM EST Clinical Support [facility] [address] [place] [address] documented as of this encounter Visit Diagnoses Not on filedocumented in this encounter Additional Health Concerns Assessment Noted Time PHQ-9 Depression Total Score: 4 05/31/20 24 11:08 AM EDT documented as of this encounter Care Teams Patrol Community Service Officer Relationship Specialty Start Date End Date Ariadna Tristan MD [address] [place] [address] PCP - General Family Medicine 07/19/19 documented as of this encounter
--- OUTSIDE RECORDS SUMMARY | 2024-12-06 07:47 | XMS_ITS | Encounter Summary ---
Author Organization [employer] Address [address] [facility] [address]t [place] [address] Care Team Providers Care Pastoral Counselor Name Role Phone Ariadna Tristan MD Primary Care Provider +1- [phone] Encounter Details Date Type Department Care Team ([facility] st Contact Info) Description 11/22/2024 Telephone [facility] [address] [place] [address] Mag Holloway [place] Social History Tobacco Use [...] Description 12/18/2024 11:00 AM EST Clinical Support [facility] [address] [place] [address] documented as of this encounter Visit Diagnoses Not on filedocumented in this encounter Additional Health Concerns Assessment Noted Time PHQ-9 Depression Total Score: 4 05/31/20 24 11:08 AM EDT documented as of this encounter Care Teams Pastoral Counselor Relationship Specialty Start Date End Date Ariadna Tristan MD [address] [place] [address] PCP - General Family Medicine 07/19/19 documented as of this encounter
--- OUTSIDE RECORDS SUMMARY | 2024-12-06 07:47 | XMS_ITS | Encounter Summary ---
Author Organization [employer] Address [address] [facility] 7 [place] [address] Care Team Providers Care Bit Gatherer Name Role Phone Ariadna Tristan MD Primary Care Provider +1- [phone] Reason for Visit * Reason Comments Injections Encounter Details Date Type Department Care Team ([facility] Contact Info) Description 12/04/2024 11:00 AM EST Clinical Support [facility] [address] [place] [address] Gely Willis RN [address] [place] [address] Gender dysphoria Social History Tobacco Use Types [...] 11:00 AM EST Clinical Support [facility] [address] [place] [address] documented as of this encounter Visit Diagnoses [...] documented as of this encounter Care Teams Bit Gatherer Relationship Specialty Start Date End Date Ariadna Tristan MD [address] [place] [address] PCP - General Family Medicine 07/19/19 documented as of this encounter
--- OUTSIDE RECORDS SUMMARY | 2024-12-06 07:47 | XMS_ITS | Encounter Summary ---
Author Organization [employer] Address [address] [place] [address] 7 [place] [address] Care Team Providers Care Slabber Name Role Phone Ariadna Tristan MD Primary Care Provider +1- [phone] Encounter Details Date Type Department Care Team [...] Description 12/18/2024 11:00 AM EST Clinical Support [facility] [address] [place] [address] documented as of this encounter Visit Diagnoses Not on filedocumented in this encounter Additional Health Concerns Assessment Noted Time PHQ-9 Depression Total Score: 4 05/31/20 24 11:08 AM EDT documented as of this encounter Care Teams Slabber Relationship Specialty Start Date End Date Ariadna Tristan MD [address] [place] [address] PCP - General Family Medicine 07/19/19 documented as of this encounter
--- OUTSIDE RECORDS SUMMARY | 2024-12-06 07:47 | XMS_ITS | Encounter Summary ---
Author Organization [email or web address] Address [address] [place] [address] 7 [place] [address] Care Team Providers Care It Technical Specialist Name Role Phone Ariadna Tristan MD Primary Care Provider [phone]- [phone] Reason for Referral * Consultation (Routine) - Closed Specialty Diagnoses / Procedures Referred By Ofelia ambrose Referred To Contact Gastroenterology Diagnoses Crohn's disease of colon, with intestinal obstruction (CMS/HCC) Ariadna Tristan MD [address] [place] [phone] Phone: tel: fax: [facility] Referral ID Status Reason Start Date Expiration Date V isits Requested Visits Authorized [id number] Closed Specialty Services Required 11/24/2024 11/24/2025 1 1 Reason for Visit * Reason Comments Annual Exam Encounter Details Date Type Department Care Team (Late st Contact Info) Description 11/23/2024 10:00 AM EST Office Visit [facility] [address] [place] [address] [phone] Ariadna Tristan MD [address] [place] [address] [phone] Crohn's disease of colon, with intestinal obstruction [...] chronic medical conditions and comprehensive annual evaluation. [facility] ED Summary(11/07/23-11/08/23): Presented with abdominal pain, nausea [...] now retired. She has recently relocated from [place] and has not been able to establish care with a GI doctorfor a long time now. She also states that she is noncompliant with her Humira. Her last dose was this morning and the one before that was a month ago. She arrives at the [facility] from [facility] emergency where she got Toradol 15 mg (x 1), morphine 4 mg (x 4), Zofran 4 mg, Solu-Medrol 60 mg, 1 L normal saline. She also got a CT scan of the abdomen and pelvis that was notable for concernof small bowel obstruction and Crohn's flare and was transferred to the [facility]. [facility] Hospital Course(11/08/23-11/10/23): She presented with abdominal pain and vomiting and was transferred from [facility] to [facility] for colorectal surgery evaluation. White blood cell [...] to follow-up with her GI physician in [place], [place] as scheduled. Last seen by PCP [...] 11/20/24 0900 Allergies Allergen Reactions Apple Juice [place] Pulp Prunus Persica Seasonal Ic [Octacosanol] Past Medical History: Diagnosis Date Crohn's disease of colon, with intestinal obstruction (CMS/HCC) 07/03/2018 Pt has ileocolonic Crohn's disease, 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 López in [place] an started on Humira with improved symptoms. She left the state and was off medications and would like a referral to GI at [facility]. Symptoms currently controlled off medication. -referral to [facility] 03/12/2023 -Pt would like to go back [...] symptoms, got established with Dr. López in [facility] started on Humira with improved symptoms. She left the state and was off medications and would like a referral to GI at [facility]. Symptoms currently controlled off medication. -referral to [facility] 03/12/2023 -Pt would like to go back to Dr. Nelson, she had left the area. Referral placed -Admitted 11/08/23 to [facility] for small bowel obstruction , Crohn's disease of bothsmall and large intestine with intestinal obstruction -denies being on Humira currently, Crohn's well controlled 05/31/24. Not following with specialist, but will call [facility] to schedule with new specialist. -re-referred [...] annual evaluation due after 11/23/25 -referred to [facility] -do not have a [...] annual evaluation due after 11/23/25 -referred to [facility] -do not have a [...] symptoms, got established with Dr. López in [place] an started on Humira with improved symptoms. She left the state and was off medications and would like a referral to GI at [facility]. Symptoms currently controlled off medication. -referral to [facility] 03/12/2023 -Pt would like to go back to Dr. Nelson, she had left the area. Referral placed -Admitted 11/08/23 to [facility] for small bowel obstruction , Crohn's disease of bothsmall and large intestine with intestinal obstruction -denies being on Humira currently, Crohn's well controlled 05/31/24. Not following with specialist, but will call [facility] to schedule with new specialist. -re-referred to GI 11/23/24 documented in this encounter Plan of Treatment Upcoming Encounters Date Type Department Care Team (Late st Contact Info) Description 12/18/2024 11:00 AM EST Clinical Support [facility] [address] [place] [phone] Scheduled Orders Name Type Priority Associated Diagnoses Orde r Schedule Testosterone, Total, males (Adult), IA Lab Routine Gender dysphoria Expected: 11/23/2024, Expires: 11/23/2025 Estradiol Lab Routine Gender dysphoria Expected: 11/23/2024, Expires: 11/23/2025 Chlamydia/N. Gonorrhoeae RNA, TMA, Throat [...] Routine screening for STI (sexually transmitted infection) CBC WITH AUTO DIFFERENTIAL Routine 12/04/2024 11:46 AM EST Crohn's disease of colon, with intestinal obstruction (CMS/HCC) HEPATITIS C AB W/REFL TO HCV RNA, QN, PCR Routine 12/04/2024 11:46 AM EST Routine screening for STI (sexually transmitted infection) IRON AND TOTAL IRON BINDING CAPACITY Routine [...] dysphoria documented in this encounter Results * Syphilis Screen (12/04/2024 11:46 AM EST) Syphilis Screen Nonreactive Nonreactive [facility] Blood Venous blood specimen / Unknown 12/04/2024 11:46 AM EST 12/04/2024 1:22 PM EST Ariadna Tristan MD LAB BLOOD ORDERABLES Final Result Performing Organization Address [facility]/ZIP Co de Phone Number [facility] [address] [place] [phone] * Hepatitis C Antibody with Reflex to HCV, RNA, Quantitative, Real-Time PCR (12/04/2024 11:46 AM EST) Hepatitis C Antibody Nonreactive Nonreactive [facility] Comment:Antibodies to HCV no t detected; does not exclude early acuteHCV infection. Blood Venous blood specimen / Unknown 12/04/2024 11:46 AM EST 12/04/2024 1:22 PM EST Ariadna Tristan MD LAB BLOOD ORDERABLES Final Result Performing Organization Address [facility] Co de Phone Number [facility] [address] [place] [phone] * HIV-1/2 Antigen and Antibodies, Fourth Generation, with Reflexes (12/04/2024 11:46 AM EST) Pathologist [facility] HIV AB/AG Nonreactive Nonreactive [facility] Comment:HIV-1 p24 Ag and/or HIV-1/HIV-2 Ab not detected.A test result that is nonreactive does not exclude thepossibility of exposure to or infection with HIV-1 and/orHIV-2. Nonreactive results in this assay for individualswith prior exposure to HIV-1 and/or HIV-2 may be due toantigen and antibody levels that are below the limit ofdetection of this assay.The [employer] HIV Ag/Ab Combo assay result andsupplemental assay results should be interpreted inconjunction with the patient's clinical presentation,history and other laboratory results. If the results areinconsistent with clinical evidence, additional testing issuggested to confirm the result. Blood Venous blood specimen / Unknown 12/04/2024 11:46 AM EST 12/04/2024 1:22 PM EST Ariadna Tristan MD LAB BLOOD ORDERABLES Final Result [facility] [address] [place] [phone] * Chlamydia/N. Gonorrhoeae RNA, TMA, Urine (12/04/2024 11:46 AM EST) CT PCR NOT DETECTED Not Detect. [facility] Comment:A not detected test result [...] psychologicalconsequences. NG PCR NOT DETECTED Not Detect. [facility] Comment:A not detected test result [...] AM EST 12/04/2024 1:11 PM EST Narrative [facility] - 12/04/2024 3:28 PM EST Urine Ariadna Tristan MD LAB MICROBIOLOGY - GENERAL ORDERABLES Final Result Performing Organization Address [facility] Co de Phone Number [facility] [address] [place] [phone] * Vitamin B12 (12/04/2024 11:46 AM EST) Vitamin B12 496 200 - 900 pg/mL [facility] Comment:NORMAL 200-900 PG/ML INDETERMINATE 160-199 PG/ML DEFICIENT < 160 PG/ML Blood Venous blood specimen / Unknown 12/04/2024 11:46 AM EST 12/04/2024 1:22 PM EST Ariadna Tristan MD LAB BLOOD ORDERABLES Final Result Performing Organization Address [facility] Co de Phone Number [facility] [address] [place] [phone] * Iron And Total Iron Binding Capacity (12/04/2024 11:46 AM EST) Iron 143 30 - 160 mcg/dL [facility] Total Iron Binding Capacity 287 228 - 428 mcg/dL [facility] Percent Iron Saturation 50 15 - 50 % [facility] Unsaturated Iron Binding 144 ug/dL [facility] Blood Venous blood specimen / Unknown 12/04/2024 11:46 AM EST 12/04/2024 1:22 PM EST Ariadna Tristan MD LAB BLOOD ORDERABLES Final Result Performing Organization Address [facility]/ZIP Co de Phone Number [facility] [address] [place] [phone] * Ferritin (12/04/2024 11:46 AM EST) Ferritin 114 10 - 122 ng/mL [facility] Blood Venous blood specimen / Unknown 12/04/2024 11:46 AM EST 12/04/2024 1:22 PM EST Ariadna Tristan MD LAB BLOOD ORDERABLES Final Result [facility] [address] [place] [phone] * (ABNORMAL) CBC auto differential (12/04/2024 11:46 AM EST) Pathologist [facility] White Blood Count 5.6 4.8 - 10.8 X10*3/uL [facility] Red Blood Count 4.19(L) 4.20 - 5.50 X10*6/uL [facility] Hemoglobin 12.7 12.0 - 16.0 g/dl [facility] Hematocrit 37.8 37.0 - 47.0 % [facility] Mean Corpuscular Volume 90.2 80.0 - 98.0 fL [facility] Mean Corpuscular Hemoglobin 30.3 27.0 - 33.0 pg [facility] Mean Corpuscular HGB Conc 33.6 31.0 - 35.0 g/dl [facility] Red Cell Distribution Width 13.2 11.0 - 16.0 % [facility] Platelet Count 332 160 - 400 X10*3/uL [facility] Mean Platelet Volume 9.9 9.4 - 12.3 fL [facility] Neutrophils Percent Auto 66.2 45 - 73 % [facility] Imm Gran Pct Auto 0.2 0.0 - 0.4 % [facility] Lymphocytes Percent Auto 22.2 20 - 40 % [facility] Monocytes Percent Auto 6.4 2 - 11 % [facility] Eosinophils Percent Auto 4.1(H) 0 - 4 % [facility] Basophils Percent Auto 0.9 0 - 2 % [facility] NRBC Pct Auto 0.0 0.0 - 0.2 /100WBC [facility] Neutrophils Absolute Auto 3.7 2.0 - 8.3 x10*3/uL [facility] Imm Gran Abs Auto 0.01 0.00 - 0.03 X10*3/uL [facility] Lymphocytes Absolute Auto 1.3 1.2 - 4.9 X10*3/uL [facility] Monocytes Absolute Auto 0.4 0.1 - 1.2 X10*3/uL [facility] Eosinophils Absolute Auto 0.2 0.0 - 0.4 X10*3/uL [facility] Basophils Absolute Auto 0.1 0.0 - 0.2 X10*3/uL [facility] NRBC Abs Auto 0.000 0.0 - 0.012 X10*3/uL [facility] Blood Venous blood specimen / Unknown 12/04/2024 11:46 AM EST 12/04/2024 1:22 PM EST us Ariadna Tristan MD LAB BLOOD ORDERABLES Final Result [facility] [address] [place] [phone] * (ABNORMAL) Basic Metabolic Panel (12/04/2024 11:46 AM EST) Sodium 136 135 - 145 mmol/L [facility] Potassium 3.7 3.3 - 5.1 mmol/L [facility] Chloride 105 96 - 108 mmol/L [facility] Carbon Dioxide 26 22 - 29 mmol/L [facility] Anion Gap 9(L) 12 - 20 [facility] Urea Nitrogen (BUN) 9 9 - 16 mg/dL [facility] Creatinine, Serum 0.82 0.5 - 1.4 mg/dL [facility] Estimated Glomerular Filt Rate >60 [facility] Comment:Chronic Kidney Disea se: Estimated GFR < 60 mL/min/1.85e0Datssh Kidney Disease: Estimated GFR < 15 mL/min/1.73m2 Glucose 78 60 - 115 mg/dL [facility] Calcium 9.2 8.4 - 10.2 mg/dL [facility] Blood Venous blood specimen / Unknown 12/04/2024 11:46 AM EST 12/04/2024 1:22 PM EST Ariadna Tristan MD LAB BLOOD ORDERABLES Final Result Performing Organization Address [facility] Co de Phone Number [facility] [address] [place] [phone] * (ABNORMAL) Hepatic Function Panel (12/04/2024 11:46 AM EST) Bilirubin, Total 0.5 0.0 - 1.0 mg/dL [facility] Bilirubin, Direct 0.2 0.0 - 0.5 mg/dL [facility] Aspartate Amino Transferase 25 5 - 31 U/L [facility] Alanine Aminotransferase 13 0 - 31 U/L [facility] Total Protein 8.4(H) 6.5 - 8.0 g/dL [facility] Albumin Level 4.1 3.5 - 5.0 g/dL [facility] Alkaline Phosphatase 74 39 - 117 U/L [facility] Blood Venous blood specimen / Unknown 12/04/2024 11:46 AM EST 12/04/2024 1:22 PM EST Ariadna Tristan MD LAB BLOOD ORDERABLES Final Result Performing Organization Address [facility] de Phone Number [facility] [address] [place] [phone] documented in this encounter Visit Diagnoses [...] documented as of this encounter Care Teams It Technical Specialist Relationship Specialty Start Date End Date Ariadna Tristan MD [address] [place] [phone] PCP - General Family Medicine 07/19/19 documented as of this encounter
--- OUTSIDE RECORDS SUMMARY | 2024-12-06 07:47 | XMS_ITS | Encounter Summary ---
Author Organization [employer] Address [address] [place] [address] 7 [place] [address] Care Team Providers Care Cook Chill Technician Name Role Phone Ariadna Tristan MD Primary Care Provider +1- [phone] Encounter Details Date Type Department Care Team [...] 12/18/2024 11:00 AM EST Clinical Support [facility] [address] [place] [address] documented as of this encounter Visit Diagnoses Not on filedocumented in this encounter Additional Health Concerns Assessment Noted Time PHQ-9 Depression Total Score: 4 05/31/20 24 11:08 AM EDT documented as of this encounter Care Teams Cook Chill Technician Relationship Specialty Start Date End Date Ariadna Tristan MD [address] [place] [address] PCP - General Family Medicine 07/19/19 documented as of this encounter
[2024-12-06 07:50] VITALS: RESP 20
[2024-12-06] MEDS: ondansetron HCL 4 MG/2 ML VIAL IVPUSH (07:50)
[2024-12-06] MEDS: Morphine Sulfate 4 MG/ML CARTRIDGE IVPUSH (07:50)
[2024-12-06 07:55] LABS: MANUAL DIFF FLAG NO
[2024-12-06 07:58] LABS: Basophils Absolute Auto 0.1 X10*3/uL (0.0-0.2); Basophils Percent Auto 0.4 % (0-2); Eosinophils Percent Auto 0.3 % (0-4); Hematocrit 38.6 % (37.0-47.0); Hemoglobin 13.3 g/dl (12.0-16.0); Imm Gran Abs Auto 0.03 X10*3/uL (0.00-0.03); Imm Gran Pct Auto 0.3 % (0.0-0.4); Lymphocytes Absolute Auto 1.2 X10*3/uL (1.2-4.9); Lymphocytes Percent Auto 10.4 % (20-40); Mean Corpuscular HGB Conc 34.5 g/dl (31.0-35.0); Mean Corpuscular Hemoglobin 30.2 pg (27.0-33.0); Mean Corpuscular Volume 87.7 fL (80.0-98.0); Mean Platelet Volume 9.6 fL (9.4-12.3); Monocytes Absolute Auto 0.6 X10*3/uL (0.1-1.2); Neutrophils Absolute Auto 9.8 x10*3/uL (2.0-8.3); Neutrophils Percent Auto 83.6 % (45-73); Platelet Count 359 X10*3/uL (160-400); Red Cell Distribution Width 12.8 % (11.0-16.0); White Blood Count 11.7 X10*3/uL (4.8-10.8)
[2024-12-06 08:21] LABS: Magnesium 1.9 mg/dL (1.6-2.6)
[2024-12-06 08:28] LABS: Alanine Aminotransferase 8 U/L (0-31); Albumin Level 4.5 g/dL (3.5-5.0); Anion Gap 15 (12-20); Aspartate Amino Transferase 24 U/L (5-31); Bilirubin Direct 0.2 mg/dL (0.0-0.5); Bilirubin Total 0.6 mg/dL (0.0-1.0); Blood Urea Nitrogen 7 mg/dL (9-16); Carbon Dioxide 23 mmol/L (22-29); Chloride 102 mmol/L (96-108); Creatinine Clr Calc Pharmacy 101.4; Estimated Glomerular Filt Rate > 60; Glucose Random 118 mg/dL (60-115); HCG Quantitative < 2 mIU/mL; Lipase 12 U/L (8-78); Potassium 3.9 mmol/L (3.3-5.1); Sodium 136 mmol/L (135-145); Total Protein 9.2 g/dL (6.5-8.0)
[2024-12-06 09:31] VITALS: RESP 18
[2024-12-06] MEDS: HYDROmorphone HCl 1 MG/ML SYRINGE IVPUSH (09:31)
[2024-12-06] MEDS: iohexoL 350 MG/ML 100 ML INFUS..BTL IV (09:53)
[2024-12-06 10:40] LABS: Influenza A PCR NEGATIVE (Negative); Influenza B PCR NEGATIVE (Negative); Resp Syncy Virus RNA Qual PCR NEGATIVE (Negative); SARS COV2 PCR INHOUSE NEGATIVE (Negative)
[2024-12-06 11:06] LABS: Alkaline Phosphatase 82 U/L (39-117)
--- NOTE | 2024-12-06 11:17 | PC.NURSE ---
Dr. Shay (surgery) atr bedside for consult.
--- NOTE | 2024-12-06 11:46 | PM.HPGS ---
History of Present Illness History of Present Illness Date of Service: 12/08/24 Chief complaint: partial small bowel obstruction Narrative: Juana June is a 24 year old female here in the ER because of abdominal pain and vomiting. She says that this started last night. She says she was in her usual state of health yesterday. She describes having this lower abdominal pain mostly in the right side starting last night. She said she also had a few episodes of vomiting. Her last episode of vomiting was at 06:00 o'clock in the morning She describes having passed flatus. She says she has a known history of Crohn's disease. She used to be followed by Dr. López. She says she was on Humira before but she has stopped taking this. She says that she has not seen her sweet goods machine operator in over 2 years She describes having had previous admissions for the same abdominal pain in the past. She says that she usually gets morphine for her pain. She has a history of appendectomy as a child. She has a history of breast implants. Review of Systems Constitutional: Constitutional: Denies chills and Denies fever(s) Cardiovascular: Cardiovascular: Denies chest pain, Denies dyspnea and Denies dyspnea on exertion Respiratory: Respiratory: Denies cough, Denies dyspnea and Denies dyspnea on exertion Gastrointestinal: Gastrointestinal: Denies hematochezia and Denies change in bowel habits Genitourinary: Genitourinary: Denies hematuria Musculoskeletal: Musculoskeletal: Denies back pain and Denies limited range of motion Neurologic: Denies focal weakness and Denies convulsions Psychiatric: Psychiatric: Denies depression and Denies mood swings [facility] Past Medical History Medical History (Updated 12/06/24 @ 13:13 by CARLOS Pope) Partial small bowel obstruction Crohn's disease Family History Family History Father Alive and well Mother Alive and well Surgical History Surgical History Hx of endoscopy History of colonoscopy History of colonoscopy Social History Social History Household Members: Family Housing: House Alcohol intake: current Alcohol intake frequency: a few times a month Patient Tobacco Use Status: Never used Tobacco Smoked in Last 30 Days: No Use of substances other than those prescribed or required for medical reasons: No Substance Use Type: Marijuana Currently Displaying Signs/Symptoms of Drug Intoxication Withdrawal: No Any prior treatment program specific to substance use: No Have you been hit, kicked, punched, or otherwise hurt by someone within the past year? If so, by whom?: No Do you feel safe in your current relationship?: No Current Relationship Is there a partner from a previous relationship who is making you feel unsafe now?: No Are you made to feel afraid or neglected: No Advance Directives: No Advance Directives Information Provided: Yes Do you have a plan to hurt others: No Plan Recently lost weight without trying: No Eating poorly because of decreased appetite: No Nutrition Risks: No Nutritional Risk Patient : No : No Poor oral hygiene: No service: No Meds Allergies Allergy/AdvReac Type Severity Reaction Status Date / Time peach [PEACH] Allergy Severe ITCHY Verified 12/06/24 07:15 THROAT pear [PEAR] Allergy Severe ITCHY Verified 12/06/24 07:15 THROAT plum [PLUM] Allergy Severe ITCHY Verified 12/06/24 07:15 THROAT apples Allergy Mild itchy Uncoded 03/02/24 11:14 throat seasonal Allergy Unknown runny nose Uncoded 03/02/24 11:14 Active Medications: Current Medications Acetaminophen (Acetaminophen 325 Mg Tablet) 650 mg PO Q6H PRN PRN Reason: Pain, Mild 1-3,fever,headache Calcium Carbonate (Calcium Carbonate 750 Mg Tab.Chew) 750 mg PO Q4H PRN PRN Reason: Heartburn Magnesium Hydroxide (Milk Of Magnesia 30 Ml Oral.Susp) 30 ml PO DAILY PRN PRN Reason: Constipation Melatonin (Melatonin 3 Mg Tablet) 6 mg PO BEDTIME PRN PRN Reason: Insomnia Morphine Sulfate (Morphine Sulfate 4 Mg/Ml Cartridge) 3 mg IVPUSH ONCE PRN; Protocol PRN Reason: Pain, Severe (Pain Scale 7-10) Ondansetron HCl (Ondansetron Hcl 4 Mg/2 Ml Vial) 4 mg IVPUSH Q6H PRN PRN Reason: nausea Sodium Chloride (0.9 % Sodium Chloride Flush 3 Ml Syringe) 3 ml IVFLUSH QSHICHI [facility] Home Medications ?Medication ?Instructions ?Recorded ?Confirmed ?Last Taken ?Type estradiol cypionate 5 mg/mL 5 mg IM Q2W 12/06/24 12/06/24 12/04/24 History intramuscular oil (Depo-Estradiol) multivitamin 1 tab PO DAILY 12/06/24 12/06/24 12/04/24 History spironolactone 100 mg tablet 100 mg PO DAILY 12/06/24 12/06/24 12/04/24 History Physical Exam Vital Signs: Vital Signs: Last Vital Signs Temp 98.1 F 12/06/24 07:11 Pulse 88 12/06/24 07:11 Resp 18 12/06/24 09:31 BP 114/39 L 12/06/24 07:11 Pulse Ox 100 12/06/24 07:11 O2 Del Method Room Air 12/06/24 07:11 BMI result Body Mass Index 19.4 Const: Other: Appears uncomfortable, emotional General: no acute distress Orientation/consciousness: patient oriented x3 Neck: Neck: Yes no lymphadenopathy Resp: Auscultation: clear to auscultation bilaterally Cardio: Rhythm: regular rhythm GI: Other: Soft, nondistended but tender mostly in the right side Palpation (GI): Soft to palpation, not firm, Tenderness to palpation present (GI) and no guarding Neuro: General: patient oriented x3 Results Results Labs: Short CBC 12/06/24 Range/Units 07:45 WBC 11.7 H (4.8-10.8) X10*3/uL Hgb 13.3 (12.0-16.0) g/dl Hct 38.6 (37.0-47.0) % Plt Count 359 (160-400) X10*3/uL BMP 12/06/24 07:45 Sodium 136 Potassium 3.9 Chloride 102 Carbon Dioxide 23 BUN 7 L Creatinine 0.76 Calcium 10.0 D Liver Function 12/06/24 Range/Units 07:45 Total Bilirubin 0.6 (0.0-1.0) mg/dL Direct Bilirubin 0.2 (0.0-0.5) mg/dL AST 24 (5-31) U/L ALT 8 (0-31) U/L Alkaline Phosphatase 82 (39-117) U/L Albumin 4.5 (3.5-5.0) g/dL Additional studies: Laboratory Results WBC 11.7 X10*3/uL (4.8-10.8) H 12/06/24 07:45 RBC 4.40 X10*6/uL (4.20-5.50) 12/06/24 07:45 Hgb 13.3 g/dl (12.0-16.0) 12/06/24 07:45 Hct 38.6 % (37.0-47.0) 12/06/24 07:45 MCV 87.7 fL (80.0-98.0) 12/06/24 07:45 MCH 30.2 pg (27.0-33.0) 12/06/24 07:45 MCHC 34.5 g/dl (31.0-35.0) 12/06/24 07:45 RDW 12.8 % (11.0-16.0) 12/06/24 07:45 Plt Count 359 X10*3/uL (160-400) 12/06/24 07:45 MPV 9.6 fL (9.4-12.3) 12/06/24 07:45 Immature Gran % (Auto) 0.3 % (0.0-0.4) 12/06/24 07:45 Neut % (Auto) 83.6 % (45-73) H 12/06/24 07:45 Lymph % (Auto) 10.4 % (20-40) L 12/06/24 07:45 [place] % (Auto) 5.0 % (2-11) 12/06/24 07:45 Eos % (Auto) 0.3 % (0-4) 12/06/24 07:45 Baso % (Auto) 0.4 % (0-2) 12/06/24 07:45 Lymph # (Auto) 1.2 X10*3/uL (1.2-4.9) 12/06/24 07:45 [place] # (Auto) 0.6 X10*3/uL (0.1-1.2) 12/06/24 07:45 Eos # (Auto) 0.0 X10*3/uL (0.0-0.4) 12/06/24 07:45 Baso # (Auto) 0.1 X10*3/uL (0.0-0.2) 12/06/24 07:45 Abs Immat Gran (auto) 0.03 X10*3/uL (0.00-0.03) 12/06/24 07:45 Absolute Neuts (auto) 9.8 x10*3/uL (2.0-8.3) H 12/06/24 07:45 Absolute Nucleated RBC 0.000 X10*3/uL (0.0-0.012) 12/06/24 07:45 Nucleated RBC % (auto) 0.0 /100WBC (0.0-0.2) 12/06/24 07:45 Sodium 136 mmol/L (135-145) 12/06/24 07:45 Potassium 3.9 mmol/L (3.3-5.1) 12/06/24 07:45 Chloride 102 mmol/L (96-108) 12/06/24 07:45 Carbon Dioxide 23 mmol/L (22-29) 12/06/24 07:45 Anion Gap 15 (12-20) 12/06/24 07:45 BUN 7 mg/dL (9-16) L 12/06/24 07:45 Creatinine 0.76 mg/dL (0.5-1.4) 12/06/24 07:45 Estim Creat Clear Calc 101.4 12/06/24 07:45 Estimated GFR > 60 12/06/24 07:45 Random Glucose 118 mg/dL (60-115) H 12/06/24 07:45 Calcium 10.0 mg/dL (8.4-10.2) D 12/06/24 07:45 Magnesium 1.9 mg/dL (1.6-2.6) 12/06/24 07:45 Total Bilirubin 0.6 mg/dL (0.0-1.0) 12/06/24 07:45 Direct Bilirubin 0.2 mg/dL (0.0-0.5) 12/06/24 07:45 AST 24 U/L (5-31) 12/06/24 07:45 ALT 8 U/L (0-31) 12/06/24 07:45 Alkaline Phosphatase 82 U/L (39-117) 12/06/24 07:45 Total Protein 9.2 g/dL (6.5-8.0) H 12/06/24 07:45 Albumin 4.5 g/dL (3.5-5.0) 12/06/24 07:45 Lipase 12 U/L (8-78) 12/06/24 07:45 Beta HCG, Quant < 2 mIU/mL 12/06/24 07:45 Influenza Type A (PCR) NEGATIVE (Negative) 12/06/24 09:52 Influenza Type B (PCR) NEGATIVE (Negative) 12/06/24 09:52 RSV RNA Qual (PCR) NEGATIVE (Negative) 12/06/24 09:52 SARS-CoV-2 RNA (RT-PCR) NEGATIVE (Negative) 12/06/24 09:52 Impressions Abdomen/Pelvis CT 12/06/24 09:00 IMPRESSION: Consider acute Crohn's disease with questionable intussusception, ileocecal resulting in partial/incomplete distal small bowel obstruction. 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 Discussed with Sofia Maldonado physician wet process miller head assistant in the emergency department at 10:22 AM. Fleischner guidelines were followed. Electronically signed by: Oliverio Avalos MD 12/06/2024 10:34 AM [facility] Assessment and Plan (1) Partial small bowel obstruction: Status: Acute She is here for abdominal pain and had vomiting earlier. She does have a history of Crohn's disease. I have reviewed her CAT scan with the radiologist. She has edema and thickening of the distal ileum along with fecalization proximal to this. This is likely to be partial small obstruction secondary to exacerbation of her Crohn's disease. She has not been on medications for several years as she says she stopped following her sweet goods machine operator. There was mention of question of intussusception but upon review, this is appears to be more of edema of the segment She does have significant amounts of gas and stool distally including the colon. I am going to per NPO. She will be on pain medications. I had explained to her that if she does not improve with a reasonable period of time, she may require surgical intervention. She seems to understand the plan well. (2) Crohn's disease: Status: Acute I have requested the sweet goods machine operator see her for her history of Crohn's disease. She says she used to be on Humira and was following Dr. López in the past Quality Stroke Does the patient have a stroke diagnosis?: No VTE Prior VTE?: No VTE Risk Level:: Medical - low VTE Device Contraindication: N/A - Device Ordered VTE Drug Contraindication: Treatment Not Indicated Procedures Date of Service Date of Service: 12/08/24
[2024-12-06] MEDS: Lactated Ringers 1,000 ML 100 ML IVCONT ×2 (12:03→21:33)
[2024-12-06] MEDS: Ketorolac Tromethamine 15 MG/ML VIAL IVPUSH ×2 (12:08→19:21)
[2024-12-06] MEDS: Milk of Magnesia 30 ML ORAL.SUSP PO (12:12)
--- NOTE | 2024-12-06 12:15 | PHA.MEDREC ---
Addendum entered by Noelle Tolliver RP 12/06/24 12:49: reviewed by [facility]. Original Note: Pharmacy Consult ? Medication Reconciliation Pharmacy has completed the medication reconciliation. Spoke with patient and she confirmed her medications. Patient confirmed her Depo-Estradiol 1ml every 2 weeks and confirmed she just did it this past Monday 12/04. She confirmed she took her other medications last Monday 12/04.
--- NOTE | 2024-12-06 12:24 | P.CNGI_ITS ---
History of Present Illness Data of Consult Service Date: 12/06/24 Primary Care Provider: Ariadna Tristan MD HPI Reason for consult: obstruction 24 year old female w/ hx of crohns and appendectomy, and non compliance who I am seeing for assessment for small bowel obstruction. patient had sudden onset RLQ crampy abdominal pain 10/10 with nausea and non bloody emesis. Also noted not passing gas and having constipation for last few days. Denies fever, rectal bleeding, melena. Denies taking nsaids. patient has not followed with GI for a while and been off humira for about 1 year, cant really give a good reason for this. She was on remicade before but did not like the idea of coming for infusions hence humira was recommended. Review of Systems 2 Review of Systems: Constitutional : No Weight loss, No Fever, No Chills ENT/Mouth : No sore throat, No Rhinorrhea Eyes: No Swelling, No Redness Cardiovascular : No Chest Pain, No SOB, No Edema Respiratory : No Cough, No Sputum, No Wheezing Gastrointestinal : see HPI Genitourinary : NO Dysuria, No Urinary Frequency, No Hematuria, No Urgency Musculoskeletal : + joint pain, No Myalgias, No Joint Swelling Skin : No Skin Lesions, No rash Neuro : No Weakness, No Numbness, No Dizziness, No Headache Psych : No Anxiety/Panic, No Depression Heme/Lymph: No Bruising, No Lymphadenopathy Endocrine : No Polyuria, No Polydipsia All other systems reviewed and are negative. [facility] Past Medical History Medical History (Updated 12/06/24 @ 13:13 by CARLOS Pope) Partial small bowel obstruction Crohn's disease Family History Family History Father Alive and well Mother Alive and well Surgical History Surgical History Hx of endoscopy History of colonoscopy History of colonoscopy Social History Social History Household Members: Family Housing: House Alcohol intake: current Alcohol intake frequency: a few times a month Patient Tobacco Use Status: Never used Tobacco Smoked in Last 30 Days: No Use of substances other than those prescribed or required for medical reasons: No Substance Use Type: Marijuana Currently Displaying Signs/Symptoms of Drug Intoxication Withdrawal: No Any prior treatment program specific to substance use: No Have you been hit, kicked, punched, or otherwise hurt by someone within the past year? If so, by whom?: No Do you feel safe in your current relationship?: No Current Relationship Is there a partner from a previous relationship who is making you feel unsafe now?: No Are you made to feel afraid or neglected: No Advance Directives: No Advance Directives Information Provided: Yes Do you have a plan to hurt others: No Plan Recently lost weight without trying: No Eating poorly because of decreased appetite: No Nutrition Risks: No Nutritional Risk Patient : No : No Poor oral hygiene: No Meds Allergies Allergy/AdvReac Type Severity Reaction Status Date / Time peach [PEACH] Allergy Severe ITCHY Verified 12/06/24 07:15 THROAT pear [PEAR] Allergy Severe ITCHY Verified 12/06/24 07:15 THROAT plum [PLUM] Allergy Severe ITCHY Verified 12/06/24 07:15 THROAT apples Allergy Mild itchy Uncoded 03/02/24 11:14 throat seasonal Allergy Unknown runny nose Uncoded 03/02/24 11:14 Active Medications: Current Medications Acetaminophen (Acetaminophen 325 Mg Tablet) 650 mg PO Q6H PRN PRN Reason: Pain, Mild 1-3,fever,headache Calcium Carbonate (Calcium Carbonate 750 Mg Tab.Chew) 750 mg PO Q4H PRN PRN Reason: Heartburn Lactated Ringer's (Lr) 1,000 mls @ 100 mls/hr IVCONT .Q10H MECHE Last Admin: 12/06/24 12:03 Dose: 100 mls/hr Ketorolac Tromethamine (Ketorolac Tromethamine 15 Mg/Ml Vial) 15 mg IVPUSH Q6H PRN PRN Reason: Pain, Severe (Pain Scale 7-10) Last Admin: 12/06/24 12:08 Dose: 15 mg Magnesium Hydroxide (Milk Of Magnesia 30 Ml Oral.Susp) 30 ml PO DAILY PRN PRN Reason: Constipation Last Admin: 12/06/24 12:12 Dose: 30 ml Melatonin (Melatonin 3 Mg Tablet) 6 mg PO BEDTIME PRN PRN Reason: Insomnia Morphine Sulfate (Morphine Sulfate 4 Mg/Ml Cartridge) 3 mg IVPUSH ONCE PRN; Protocol PRN Reason: Pain, Severe (Pain Scale 7-10) Ondansetron HCl (Ondansetron Hcl 4 Mg/2 Ml Vial) 4 mg IVPUSH Q6H PRN PRN Reason: nausea Sodium Chloride (0.9 % Sodium Chloride Flush 3 Ml Syringe) 3 ml IVFLUSH QSHIFT [facility] Medications ?Medication ?Instructions ?Recorded ?Confirmed ?Last Taken ?Type estradiol cypionate 5 mg/mL 5 mg IM Q2W 12/06/24 12/06/24 12/04/24 History intramuscular oil (Depo-Estradiol) multivitamin 1 tab PO DAILY 12/06/24 12/06/24 12/04/24 History spironolactone 100 mg tablet 100 mg PO DAILY 12/06/24 12/06/24 12/04/24 History Physical Exam 2 Vital Signs: Vital Signs: Last Vital Signs Temp 98.1 F 12/06/24 07:11 Pulse 88 12/06/24 07:11 Resp 18 12/06/24 09:31 BP 114/39 L 12/06/24 07:11 Pulse Ox 100 12/06/24 07:11 O2 Del Method Room Air 12/06/24 07:11 BMI result Body Mass Index 19.4 EXAM: GENERAL: The patient is well developed and nontoxic. VITAL SIGNS:see workflow HEENT: Nonicteric sclerae, PERRLA, EOMI. Oropharynx clear. Moist mucous membranes. Conjunctivae appear well perfused. No thyroid mass. CHEST: Chest wall is nontender. HEART: Regular rate and rhythm without murmurs. LUNGS: Clear to auscultation bilaterally. ABDOMEN: Soft, positive bowel sounds, tender RLQ, no organomegaly.no flank tenderness SKIN: No rash, no excessive bruising, petechiae, or purpura. NEUROLOGIC: Cranial nerves II-XII intact without motor/sensory deficit. Psych: normal affect Results Labs 12/06/24 07:45 12/06/24 07:45 Labs: Short CBC 12/06/24 Range/Units 07:45 WBC 11.7 H (4.8-10.8) X10*3/uL Hgb 13.3 (12.0-16.0) g/dl Hct 38.6 (37.0-47.0) % Plt Count 359 (160-400) X10*3/uL BMP 12/06/24 07:45 Sodium 136 Potassium 3.9 Chloride 102 Carbon Dioxide 23 BUN 7 L Creatinine 0.76 Calcium 10.0 D Liver Function 12/06/24 Range/Units 07:45 Total Bilirubin 0.6 (0.0-1.0) mg/dL Direct Bilirubin 0.2 (0.0-0.5) mg/dL AST 24 (5-31) U/L ALT 8 (0-31) U/L Alkaline Phosphatase 82 (39-117) U/L Albumin 4.5 (3.5-5.0) g/dL Imaging CT scan - abdomen: Attestation: I personally reviewed and interpreted this imaging study as follows: (distal small bowel edema, mesenteric stranding, possibleTI prolapse, fecal loading) Assessment and Plan (1) Partial small bowel obstruction: Status: Acute (2) Crohn's disease: Status: Acute Plan 1/ Acute flare of crohns with pSBO, hx of non compliance. PLAN: 1/ Recommend solumedrol 20 mg q8 hr for 48 hrs then transition to short course of PO prednisone with follow up with Dr Mcgowan for biolgic treatment 2/ Also recommend adding flagyl and cipro due to anti inflammatory action and reducing risk of bacterial translocation 3/ high risk for DVT< lovenox prevention dose recommended 4/ encouraged on compliance with care Procedures Date of Service Date of Service: 12/06/24
[2024-12-06 13:50] VITALS: BP 111/61; PULSE 72; RESP 13; TEMP 36.7; O2SAT 98
[2024-12-06 14:36] VITALS: BMI 20.3
[2024-12-06] MEDS: Morphine Sulfate 4 MG/ML CARTRIDGE 3 MG IVPUSH ×3 (15:09→21:25)
[2024-12-06 16:00] VITALS: BP 115/63; PULSE 73; RESP 16; TEMP 36.4; O2SAT 98
--- NOTE | 2024-12-06 16:23 | PM.EVENT ---
Event Note Date of Service: 12/07/24 Event Note: On afternoon rounds Much more comfortable Still has some abdominal pain but much improved after pain meds Does not appear toxic Abdomen is soft and benign Stable vital signs Awaiting input from GI Keep NPO and pain management for now She understands the plan was Time Spent With Patient Time: Total time managing care of this patient today ____ minutes.
[2024-12-06 19:13] VITALS: BP 120/60; PULSE 80; RESP 16; TEMP 36.7; O2SAT 100
[2024-12-06 19:38] LABS: Appearance Urine Clear; Color Urine Yellow; Glucose Urine UA Negative (Negative); Leukocyte Esterase Urine Negative (Negative); Nitrite Urine Negative (Negative); Specific Gravity - Urine >= 1.030 (1.005-1.025); UMIC TRIGGER UACC YES; Urine Blood Negative (Negative); Urine Ketones Negative (Negative); Urine Protein 30 (1+) mg/dL (Neg-Trace)
[2024-12-06 19:39] LABS: UPreg QC Valid YES; Urine Pregnancy NEGATIVE (NEGATIVE)
[2024-12-06 19:51] LABS: Bacteria Urine None Seen (None Seen); Hyaline Casts Urine 0-2 /LPF (0-2); RBC Urine 0-2 /HPF (0-2); Squamous Epithelial Cell Urine 0-2 /HPF (0-2); WBC Urine 0-5 /HPF (0-5)
[2024-12-06] MEDS: methylPREDNISolone Sod Succ 40 MG/ML VIAL 20 MG IVPUSH (21:26)
[2024-12-06] MEDS: Enoxaparin Sodium 40 MG/0.4 ML SYRINGE SUBCUT (21:27)
[2024-12-06] MEDS: metroNIDAZOLE/NS 500 MG/100 ML PIGGYBACK 100 MG IV (21:29)
[2024-12-06] MEDS: Ciprofloxacin Lactate/D5W 400 MG/200 ML PIGGYBACK 200 MG IV (22:28)
[2024-12-06] MEDS: 0.9 % Sodium Chloride Flush 3 ML SYRINGE IVFLUSH (22:30)
[2024-12-07] MEDS: Morphine Sulfate 4 MG/ML CARTRIDGE 3 MG IVPUSH ×5 (02:53→21:09)
[2024-12-07 03:27] VITALS: BP 109/54; PULSE 70; RESP 18; TEMP 36.1; O2SAT 97
[2024-12-07] MEDS: methylPREDNISolone Sod Succ 40 MG/ML VIAL 20 MG IVPUSH ×3 (04:53→20:45)
[2024-12-07] MEDS: metroNIDAZOLE/NS 500 MG/100 ML PIGGYBACK 100 MG IV ×3 (04:54→20:45)
[2024-12-07] MEDS: Milk of Magnesia 30 ML ORAL.SUSP PO (04:54)
[2024-12-07 07:45] VITALS: BP 99/57; PULSE 65; RESP 16; TEMP 36.3; O2SAT 97
--- NOTE | 2024-12-07 08:08 | PM.PNGS ---
Subjective Subjective Date of Service: 12/07/24 Interval history: Says she feels much better this morning Slept well overnight Says she may have passed flatus once overnight Still has some pain, 03/17 Physical Exam Vital Signs: Vital Signs: Last Vital Signs Temp 97.3 F 12/07/24 07:45 Pulse 65 12/07/24 07:45 Resp 16 12/07/24 07:45 BP 99/57 L 12/07/24 07:45 Pulse Ox 97 12/07/24 07:45 O2 Del Method Room Air 12/07/24 07:45 BMI result Body Mass Index 20.3 Const: Other: Looks well General: comfortable and no acute distress Resp: Effort & Inspection: normal respiratory effort Cardio: Rate: regular rate GI: Inspection: No distended Palpation (GI): Soft to palpation, not firm, Tenderness to palpation present (GI) (Mild tenderness mostly in the right side) and no guarding Objective Data Active Medications Acetaminophen (Acetaminophen 325 Mg Tablet) 650 mg PO Q6H PRN PRN Reason: Pain, Mild 1-3,fever,headache Calcium Carbonate (Calcium Carbonate 750 Mg Tab.Chew) 750 mg PO Q4H PRN PRN Reason: Heartburn Enoxaparin Sodium (Enoxaparin Sodium 40 Mg/0.4 Ml Syringe) 40 mg SUBCUT Q24H [facility] Last Admin: 12/06/24 21:27 Dose: 40 mg Documented By: PATRIC Lactated Ringer's (Lr) 1,000 mls @ 100 mls/hr IVCONT .Q10H [facility] Last Infusion: 12/07/24 05:50 Dose: 100 mls/hr Documented By: PATRIC Metronidazole (Flagyl) 500 mg in 100 mls @ 100 mls/hr IV Q8H [facility] Last Infusion: 12/07/24 05:50 Dose: Infused Documented By: PATRIC Ciprofloxacin (Cipro) 400 mg in 200 mls @ 200 mls/hr IV Q12H [facility] Last Infusion: 12/06/24 23:45 Dose: Infused Documented By: PATRIC Magnesium Hydroxide (Milk Of Magnesia 30 Ml Oral.Susp) 30 ml PO DAILY PRN PRN Reason: Constipation Last Admin: 12/07/24 04:54 Dose: 30 ml Documented By: PATRIC Melatonin (Melatonin 3 Mg Tablet) 6 mg PO BEDTIME PRN PRN Reason: Insomnia Methylprednisolone Sodium Succinate (Methylprednisolone Sod Succ 40 Mg/Ml Vial) 20 mg IVPUSH Q8H [facility] Stop: 12/08/24 13:01 Last Admin: 12/07/24 04:53 Dose: 20 mg Documented By: PATRIC Morphine Sulfate (Morphine Sulfate 4 Mg/Ml Cartridge) 3 mg IVPUSH Q3H PRN; Protocol PRN Reason: Pain, Severe (Pain Scale 7-10) Last Admin: 12/07/24 02:53 Dose: 3 mg Documented By: PATRIC Ondansetron HCl (Ondansetron Hcl 4 Mg/2 Ml Vial) 4 mg IVPUSH Q6H PRN PRN Reason: nausea Sodium Chloride (0.9 % Sodium Chloride Flush 3 Ml Syringe) 3 ml IVFLUSH QSHIFT [facility] Last Admin: 12/07/24 07:19 Dose: Not Given Documented By: AUSTIN Non-Admin Reason: Previously Administered Labs 12/07/24 08:29 12/07/24 08:29 Labs: Laboratory Results - last 24 hr 12/06/24 12/06/24 12/06/24 07:45 09:52 19:23 Anion Gap 15 Estim Creat Clear Calc 101.4 Estimated GFR > 60 Random Glucose 118 H Calcium 10.0 D Magnesium 1.9 Total Bilirubin 0.6 Direct Bilirubin 0.2 AST 24 ALT 8 Alkaline Phosphatase 82 Total Protein 9.2 H Albumin 4.5 Lipase 12 Beta HCG, Quant < 2 Urine Color Yellow Urine Appearance Clear Urine pH 8.0 Ur Specific [place] >= 1.030 H Urine Protein 30 (1+) H Urine Glucose (UA) Negative Urine Ketones Negative Urine Blood Negative Urine Nitrite Negative Ur Leukocyte Esterase Negative Urine RBC 0-2 Urine WBC 0-5 Ur Squamous Epith Cells 0-2 Urine Bacteria None Seen Hyaline Casts 0-2 Urine Test NEGATIVE Influenza Type A (PCR) NEGATIVE Influenza Type B (PCR) NEGATIVE RSV RNA Qual (PCR) NEGATIVE SARS-CoV-2 RNA (RT-PCR) NEGATIVE Procedures Date of Service Date of Service: 12/07/24 Progress Note: A&P Assessment and plan (1) Partial small bowel obstruction: Status: Acute Assessment and Plan: Appears to have exacerbation of Crohn's disease in the distal ileum Clinically much improved Pain has subsided significantly We will keep on sips of clear liquids and ice chips for today until flatus more consistent Abdomen is soft and benign Labs okay Started on methylprednisolone by GI Appreciate input by prints and drawings curator Time Spent With Patient Time: Total time managing care of this patient today ____ minutes. Quality Stroke Does the patient have a stroke diagnosis?: No VTE Prior VTE?: No VTE Risk Level:: Medical - low VTE Device Contraindication: N/A - Device Ordered VTE Drug Contraindication: Treatment Not Indicated
[2024-12-07 08:40] LABS: Hematocrit 34.9 % (37.0-47.0); Mean Corpuscular HGB Conc 34.4 g/dl (31.0-35.0); Mean Corpuscular Hemoglobin 30.4 pg (27.0-33.0); Mean Corpuscular Volume 88.4 fL (80.0-98.0); Mean Platelet Volume 9.6 fL (9.4-12.3); Platelet Count 303 X10*3/uL (160-400); Red Blood Count 3.95 X10*6/uL (4.20-5.50); Red Cell Distribution Width 12.5 % (11.0-16.0)
[2024-12-07] MEDS: Lactated Ringers 1,000 ML 100 ML IVCONT (08:41)
[2024-12-07 09:00] LABS: Anion Gap 12 (12-20); Blood Urea Nitrogen 8 mg/dL (9-16); Carbon Dioxide 26 mmol/L (22-29); Chloride 103 mmol/L (96-108); Creatinine Clr Calc Pharmacy 110.1; Estimated Glomerular Filt Rate > 60; Glucose Random 128 mg/dL (60-115); Potassium 4.6 mmol/L (3.3-5.1); Sodium 136 mmol/L (135-145)
[2024-12-07 09:12] LABS: Calcium 9.4 mg/dL (8.4-10.2)
[2024-12-07] MEDS: Ciprofloxacin Lactate/D5W 400 MG/200 ML PIGGYBACK 200 MG IV ×2 (11:01→22:00)
--- NOTE | 2024-12-07 12:22 | PC.NURSE ---
pt c/o constipation stating MOM had little effect. informed
[2024-12-07] MEDS: Calcium Carbonate 750 MG TAB.CHEW PO (12:43)
--- NOTE | 2024-12-07 14:35 | MHC.CM.PN ---
PATIENT LIVES IN A HOME W/ MOTHER. FUNCTIONALLY INDEPENDENT. DENIES USE OF DME OR SERVICES. PCP MARICEL GUO MD NO HCP. CM PROVIDED EDUCATION AND OFFERED ASSISTANCE. PATIENT DECLINED. DP: HOME SELF CARE. MOTHER TO TRANSPORT.
--- NOTE | 2024-12-07 14:38 | PM.EVENT ---
Event Note Date of Service: 12/07/24 Event Note: Seen on afternoon rounds Passing more flatus Denies nausea or vomiting Pain much improved Abdomen soft Looks well We will start on clear liquids tonight Time Spent With Patient Time: Total time managing care of this patient today ____ minutes.
[2024-12-07 16:00] VITALS: BP 118/58; PULSE 67; RESP 16; TEMP 36.7; O2SAT 99
--- NOTE | 2024-12-07 17:00 | P.PNGI_ITS ---
Subjective Subjective Date of Service: 12/07/24 Interval History: feeling better mild abdominal pain no nausea or vomiting passing gas and small amount of liquid stools Critical Care Time (minutes): 0 Physical Exam 2 Vital Signs: Vital Signs: Last Vital Signs Temp 98.0 F 12/07/24 16:00 Pulse 67 12/07/24 16:00 Resp 16 12/07/24 16:00 BP 118/58 L 12/07/24 16:00 Pulse Ox 99 12/07/24 16:00 O2 Del Method Room Air 12/07/24 16:00 BMI result Body Mass Index 20.3 EXAM: GENERAL: The patient is well developed and nontoxic. VITAL SIGNS:see workflow HEENT: Nonicteric sclerae, PERRLA, EOMI. Oropharynx clear. Moist mucous membranes. Conjunctivae appear well perfused. No thyroid mass. CHEST: Chest wall is nontender. HEART: Regular rate and rhythm without murmurs. LUNGS: Clear to auscultation bilaterally. ABDOMEN: Soft, positive bowel sounds, nontender, no organomegaly.no flank tenderness SKIN: No rash, no excessive bruising, petechiae, or purpura. NEUROLOGIC: Cranial nerves II-XII intact without motor/sensory deficit. Psych: normal affect Objective Data Labs 12/07/24 08:29 12/07/24 08:29 Labs: Laboratory Results - last 24 hr 12/06/24 12/07/24 19:23 08:29 WBC 9.0 RBC 3.95 L Hgb 12.0 Hct 34.9 L MCV 88.4 MCH 30.4 MCHC 34.4 RDW 12.5 Plt Count 303 MPV 9.6 Absolute Nucleated RBC 0.000 Nucleated RBC % (auto) 0.0 Sodium 136 Potassium 4.6 Chloride 103 Carbon Dioxide 26 Anion Gap 12 BUN 8 L Creatinine 0.73 Estim Creat Clear Calc 110.1 Estimated GFR > 60 Random Glucose 128 H Calcium 9.4 Urine Color Yellow Urine Appearance Clear Urine pH 8.0 Ur Specific [place] >= 1.030 H Urine Protein 30 (1+) H Urine Glucose (UA) Negative Urine Ketones Negative Urine Blood Negative Urine Nitrite Negative Ur Leukocyte Esterase Negative Urine RBC 0-2 Urine WBC 0-5 Ur Squamous Epith Cells 0-2 Urine Bacteria None Seen Hyaline Casts 0-2 Urine Test NEGATIVE Procedures Date of Service Date of Service: 12/07/24 Progress Note: A&P Assessment and plan (1) Crohn's disease: Status: Acute (2) Partial small bowel obstruction: Status: Acute Plan 1/ Crohns with pSBO from crohns flare PLAN: 1/ cont with IV steroid for another 24 hr then convert to PO 2/ 7d of ABx, can convert to PO 3/ f/u with DR Mcgowan for biologic 4/order TB testing Time Spent With Patient Time: Total time managing care of this patient today ____ minutes. Quality Stroke Does the patient have a stroke diagnosis?: No VTE Prior VTE?: No VTE Risk Level:: Medical - low VTE Device Contraindication: N/A - Device Ordered VTE Drug Contraindication: Treatment Not Indicated
[2024-12-07 19:35] VITALS: BP 130/58; PULSE 76; RESP 18; TEMP 36.8; O2SAT 98
[2024-12-07] MEDS: Enoxaparin Sodium 40 MG/0.4 ML SYRINGE SUBCUT (20:45)
[2024-12-08 04:00] VITALS: BP 124/65; PULSE 66; RESP 18; TEMP 36.9; O2SAT 100
[2024-12-08] MEDS: methylPREDNISolone Sod Succ 40 MG/ML VIAL 20 MG IVPUSH ×2 (04:55→12:07)
[2024-12-08] MEDS: metroNIDAZOLE/NS 500 MG/100 ML PIGGYBACK 100 MG IV ×2 (04:55→12:07)
[2024-12-08] MEDS: Lactated Ringers 1,000 ML 80 ML IVCONT (04:56)
[2024-12-08 07:34] VITALS: BP 102/54; PULSE 62; RESP 16; TEMP 36.9; O2SAT 98
--- NOTE | 2024-12-08 09:30 | PM.PNGS ---
Subjective Subjective Date of Service: 12/11/24 Interval history: Denies significant pain Passing good amounts of flatus Has had multiple BMs No nausea or vomiting Physical Exam Vital Signs: Vital Signs: Last Vital Signs Temp 98.4 F 12/08/24 07:34 Pulse 62 12/08/24 07:34 Resp 16 12/08/24 07:34 BP 102/54 L 12/08/24 07:34 Pulse Ox 98 12/08/24 07:34 O2 Del Method Room Air 12/08/24 07:34 BMI result Body Mass Index 20.3 Const: General: comfortable and no acute distress Resp: Effort & Inspection: normal respiratory effort Cardio: Rate: regular rate GI: Palpation (GI): Soft to palpation, not firm, nontender and no guarding Objective Data Active Medications Acetaminophen (Acetaminophen 325 Mg Tablet) 650 mg PO Q6H PRN PRN Reason: Pain, Mild 1-3,fever,headache Calcium Carbonate (Calcium Carbonate 750 Mg Tab.Chew) 750 mg PO Q4H PRN PRN Reason: Heartburn Last Admin: 12/07/24 12:43 Dose: 750 mg Documented By: AUSTIN Enoxaparin Sodium (Enoxaparin Sodium 40 Mg/0.4 Ml Syringe) 40 mg SUBCUT Q24H [facility] Last Admin: 12/07/24 20:45 Dose: 40 mg Documented By: MIKE Lactated Ringer's (Lr) 1,000 mls @ 80 mls/hr IVCONT .[id number] [facility] Last Admin: 12/08/24 04:56 Dose: 80 mls/hr Documented By: MIKE Metronidazole (Flagyl) 500 mg in 100 mls @ 100 mls/hr IV Q8H [facility] Last Infusion: 12/08/24 05:57 Dose: Infused Documented By: MIKE Ciprofloxacin (Cipro) 400 mg in 200 mls @ 200 mls/hr IV Q12H [facility] Last Infusion: 12/07/24 23:06 Dose: Infused Documented By: MIKE Magnesium Hydroxide (Milk Of Magnesia 30 Ml Oral.Susp) 30 ml PO DAILY PRN PRN Reason: Constipation Last Admin: 12/07/24 04:54 Dose: 30 ml Documented By: PATRIC Melatonin (Melatonin 3 Mg Tablet) 6 mg PO BEDTIME PRN PRN Reason: Insomnia Methylprednisolone Sodium Succinate (Methylprednisolone Sod Succ 40 Mg/Ml Vial) 20 mg IVPUSH Q8H [facility] Stop: 12/08/24 13:01 Last Admin: 12/08/24 04:55 Dose: 20 mg Documented By: MIKE Morphine Sulfate (Morphine Sulfate 4 Mg/Ml Cartridge) 3 mg IVPUSH Q3H PRN; Protocol PRN Reason: Pain, Severe (Pain Scale 7-10) Last Admin: 12/07/24 21:09 Dose: 3 mg Documented By: MIKE Ondansetron HCl (Ondansetron Hcl 4 Mg/2 Ml Vial) 4 mg IVPUSH Q6H PRN PRN Reason: nausea Sodium Chloride (0.9 % Sodium Chloride Flush 3 Ml Syringe) 3 ml IVFLUSH QSHIFT [facility] Last Admin: 12/08/24 07:05 Dose: Not Given Documented By: AUSTIN Non-Admin Reason: Previously Administered Labs 12/07/24 08:29 12/07/24 08:29 Procedures Date of Service Date of Service: 12/11/24 Progress Note: A&P Assessment and plan (1) Partial small bowel obstruction: Status: Acute Assessment and Plan: Secondary to Crohn's Much improved Passing flatus and BMs Was started on methylprednisolone by GI We will try on regular food later on today Looks well Generally asymptomatic now Likely to discharge on a taper of prednisone - we will discuss with GI Time Spent With Patient Time: Total time managing care of this patient today ____ minutes. Quality Stroke Does the patient have a stroke diagnosis?: No VTE Prior VTE?: No VTE Risk Level:: Medical - low VTE Device Contraindication: N/A - Device Ordered VTE Drug Contraindication: Treatment Not Indicated
[2024-12-08] MEDS: Ciprofloxacin Lactate/D5W 400 MG/200 ML PIGGYBACK 200 MG IV (09:37)
--- NOTE | 2024-12-08 10:45 | MHC.CM.PN ---
Per MD patient not medically cleared for dc. CM will continue to follow.
--- NOTE | 2024-12-08 14:34 | PM.EVENT ---
Event Note Date of Service: 12/08/24 Event Note: Seen on afternoon rounds Tolerating regular diet Passing flatus Has BMs Abdomen is soft benign nontender Says she feels well and feels ready to be discharged I emphasized to her the importance of close follow up with GI She will be on steroids on a tapering dose and antibiotics as per GI recommendations She is comfortable with the plan Time Spent With Patient Time: Total time managing care of this patient today ____ minutes.
--- NOTE | 2024-12-08 15:22 | P.DS_ITS ---
DS: Providers Provider Date of Service: 12/08/24 Date of admission: 12/06/24 11:32 Date of discharge: 12/08/24 Primary care physician: Ariadna Tristan MD Attending physician on admission: Michael Shay Consults: 12/06/24 11:34 Consult to Gastroenterology Routine Consulting Provider: Bob López Reason for consultation: Crohn's disease, small bowel obstruction Attending physician on discharge: Michael Shay DS: Diagnosis Discharge Diagnosis (1) Partial small bowel obstruction: Status: Resolved DS: Summary Hospital Course Hospital Course: HPI AT ADMISSION: [place] June is a 24 year old female here in the ER because of abdominal pain and vomiting. She says that this started last night. She says she was in her usual state of health yesterday. She describes having this lower abdominal pain mostly in the right side starting last night. She said she also had a few episodes of vomiting. Her last episode of vomiting was at 06:00 o'clock in the morning She describes having passed flatus. She says she has a known history of Crohn's disease. She used to be followed by Dr. López. She says she was on Humira before but she has stopped taking this. 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 She describes having had previous admissions for the same abdominal pain in the past. She says that she usually gets morphine for her pain. She has a history of appendectomy as a child. She has a history of breast implants. CT shows dilated small bowel, edema and thickening of the distal ileum along with fecalization proximal to this. HOSPITAL COURSE: She was admitted to the surgical service for further treatment of the SBO, Crohns flare. Partial small obstruction secondary to exacerbation of her Crohn's disease. There was mention of question of intussusception but it appears to be more of edema of the segment. She was continued on supportive measures and kept NPO, on IVF, PRN analgesics and antiemetics, GI consult for Crohns flare. GI recommended solumedrol 20 mg q8 hr for 48 hrs then transition to short course of PO prednisone and IV flagyl and cipro due to anti i nflammatory action and reducing risk of bacterial translocation, and this was initiated. She had improvement in her symptoms and resolution of her abdominal pain and return of GI function. Her diet was advanced as tolerated. On the day of discharge, she was tolerating solid diet without nausea, vomiting or worsening abd pain. She had good GI function. Her abdomen was benign and she was hemodynamically stable. She was discharged to home on 12/08/24 in stable condition. She was discharged on a course of oral prednisone and flagyl/cipro. She is to follow up with Dr Mcgowan for biologic treatment. Status at Discharge Functional status at discharge: independent ambulation Overall status at discharge: patient is progressing back to baseline Time Attestation Discharge Coordination Time (in mins): 35 Quality: Safe Use of Opioids Does Pt have an Active Cancer Diagnosis on the Problem List?: No Quality: Stroke Does the patient have a stroke diagnosis?: No Physical Exam Vital Signs: Vital Signs: Last Vital Signs Temp 98.7 F 12/08/24 15:25 Pulse 84 12/08/24 15:25 Resp 16 12/08/24 15:25 BP 112/57 L 12/08/24 15:25 Pulse Ox 98 12/08/24 15:25 O2 Del Method Room Air 12/08/24 15:25 BMI result Body Mass Index 20.3 Const: General: comfortable, no acute distress and alert GI: Inspection: No distended Palpation (GI): Soft to palpation and nontender Skin: General skin exam: no rashes or lesions noted Discharge Plan Discharge Anticipated Discharge Date/Time: 12/08/24 16:15 Patient Disposition: Home, Self-Care Discharge Diagnosis: crohns disease, SBO Referrals: Ariadna Tristan MD [Primary Care Provider] - 1 Week Eileen Mcgowan MD [Physician] - 1 Week Discharge Medications: New metronidazole 500 mg tablet 500 mg PO Q8H Qty: 21 0RF ciprofloxacin HCl 500 mg tablet 500 mg PO BID Qty: 20 0RF prednisone 10 mg tablet 10 mg PO DIRECTED Qty: 102 0RF Rx Instructions: see taper instructions 40mg PO x 1 week 30mg PO x 1 week 25mg PO x 1 week 20mg PO x 1 week 15mg PO x 1 week 10mg PO x 1 week 5mg PO x 1 week ciprofloxacin HCl 500 mg tablet 500 mg PO BID Qty: 20 0RF metronidazole 500 mg tablet 500 mg PO TID Qty: 21 0RF prednisone 10 mg tablet 10 mg PO DIRECTED Qty: 20 0RF Rx Instructions: see taper instructions 40 mg daily x 5 days 30 mg daily x 5 days 20 mg daily x 5 days 10 mg daily x 5 days Continued Depo-Estradiol 5 mg/mL oil 5 mg IM Q2W spironolactone 100 mg tablet 100 mg PO DAILY multivitamin Tablet 1 tab PO DAILY Discharge Orders: Discharge Order (Routine); Ordered 12/08/24 Ordered By: Michael Shay Diet: Advance to usual diet Activity on Discharge: As tolerated Stand Alone Forms: Patient Portal Discharge page Print Language: [place] Activity Restrictions/Additional Instructions: Follow up with your PCP and Dr. Mcgowan upon discharge. Take your steroids and antibiotics as directed. Call Your Doctor If: ? ? -Your temperature exceeds 101.5? F? ? ? -You experience excessive pain or swelling ? ? -You have an unexpected reaction to medication ? ? -You experience continued vomiting/nausea Care Plan Goals: Return to baseline health and resume normal activities. Health Concerns: SBO Crohns flare Plan of Treatment: IV steroids, antibiotics transitioned to oral bowel rest F/u with GI office Assessment: Improved Discharge Date/Time: 12/08/24 17:06
[2024-12-08 15:25] VITALS: BP 112/57; PULSE 84; RESP 16; TEMP 37.1; O2SAT 98
--- NOTE | 2024-12-08 15:55 | MHC.CM.PN ---
Patient medically cleared for dc home self care via private transport.
[2024-12-11 10:24] LABS: TS Negative Control Passed; TS Panel A 0; TS Panel B 0; TS Positive Control Passed; TSpotTB Negative (Negative)
== END 2024-12-08 17:06 | disposition home or self-care (01) | DRG 245 ==
LOC: HO.ED 07:47 → HO.EDOVER 11:35 → HO.S3 12:53
PROVIDERS: Physician Assistant Medical; Physician Assistant Surgical; Admitting Provider Surgery; Emergency Provider Student in an Organized Health Care Education/Training Program; PCP Family Medicine; Visit Provider Surgery
DX: K50.912 Crohn's disease, unspecified, with intestinal obstruction (principal); Z20.822 Contact with and (suspected) exposure to COVID-19; Z79.899 Other long term (current) drug therapy; Z91.148 Patient's other noncompliance with medication regimen for other reason; Z91.198 Patient's noncompliance with other medical treatment and regimen for other reason
CPT/HCPCS: 0241U; 36415; 74177; 80048; 80076; 81001; 81025; 83690; 83735; 84702; 85025; 85027; 86481; 99285; J0744; J1171; J1650; J1836; J1885; J2270; J2405; J2919; J7120; Q9967

== ENCOUNTER → 2024-12-06 07:40 | Outpatient (BNV) | payer MEDICAID, SELFPAY | PROVIDERS: Emergency Provider Student in an Organized Health Care Education/Training Program; PCP Family Medicine; Visit Provider Radiology Diagnostic Radiology | DX: R10.9 Unspecified abdominal pain (principal) | CPT/HCPCS: 74177 ==

== ENCOUNTER → 2024-12-06 11:32 | Outpatient (BNV) | payer MEDICAID, SELFPAY | PROVIDERS: Admitting Provider Surgery; Emergency Provider Student in an Organized Health Care Education/Training Program; PCP Family Medicine; Visit Provider Internal Medicine Gastroenterology | DX: K50.90 Crohn's disease, unspecified, without complications (principal); K56.600 Partial intestinal obstruction, unspecified as to cause | CPT/HCPCS: 99223; 99232 ==

== ENCOUNTER → 2024-12-06 11:32 | Outpatient (BNV) | payer MEDICAID, SELFPAY | PROVIDERS: Admitting Provider Surgery; Emergency Provider Student in an Organized Health Care Education/Training Program; PCP Family Medicine; Visit Provider Surgery | DX: K56.600 Partial intestinal obstruction, unspecified as to cause (principal) | CPT/HCPCS: 99239 ==

== ENCOUNTER 2025-02-26 08:02 | Emergency (ER) | payer MEDICAID, SELFPAY ==
[2025-02-26] VITALS (8 sets, daily range): BP systolic 100–124; BP diastolic 50–84; PULSE 73–101; RESP 13–23; TEMP 36.6–36.8; O2SAT 92–99
--- NOTE | ~2025-02-26 | XR_ITS ---
CLINICAL HISTORY: cough 1 view chest x-ray Comparison: None Findings: No consolidation, pleural effusion or pneumothorax. Normal size heart. No acute fracture. There are bilateral breast prostheses. IMPRESSION: No acute cardiopulmonary process. This document has been electronically signed by: Bambi Mayorga DO on 02/26/2025 14:33:59
--- NOTE | 2025-02-26 08:03 | ECG_ITS ---
Test Reason : sob Blood Pressure : */* mmHG Vent. Rate : 99 BPM Atrial Rate : 99 BPM P-R Int : 150 ms QRS Dur : 70 ms QT Int : 310 ms P-R-T Axes : 78 73 70 degrees QTcB Int : 397 ms Normal sinus rhythm Normal ECG No previous ECGs available Referred By: Generic ED Physician Electronically Signed By: DALIA NASCIMENTO
--- NOTE | 2025-02-26 08:39 | ED.ASTHMA ---
HPI - Asthma General Chief Complaint: Asthma Stated Complaint: chest pressure diff breathing Time Seen by Provider: 02/26/25 08:23 Source: patient, RN notes reviewed and old records reviewed Mode of arrival: ambulatory History of Present Illness ED Provider: Ambar Tidwell PA-C HPI Narrative: 24-year-old female with a past medical history Crohn's disease, partial small bowel obstruction, asthma, presenting to the ED complaining of productive cough, chest congestion, SOB, chest discomfort with coughing x 2 days. Admits to using inhalers and neb machine at home without relief. + sick contacts. Denies fever, chills, ear pain, recent travel Related Data Home Medications ?Medication ?Instructions ?Recorded ?Confirmed estradiol cypionate 5 mg/mL 5 mg IM Q2W 12/06/24 12/06/24 intramuscular oil (Depo-Estradiol) multivitamin 1 tab PO DAILY 12/06/24 12/06/24 spironolactone 100 mg tablet 100 mg PO DAILY 12/06/24 12/06/24 Previous Rx's ?Medication ?Instructions ?Recorded ciprofloxacin HCl 500 mg tablet 500 mg PO BID #20 tabs 12/08/24 ciprofloxacin HCl 500 mg tablet 500 mg PO BID #20 tabs 12/08/24 metronidazole 500 mg tablet 500 mg PO Q8H #21 tabs 12/08/24 metronidazole 500 mg tablet 500 mg PO TID #21 tabs 12/08/24 prednisone 10 mg tablet 10 mg PO DIRECTED #102 tabs 12/08/24 prednisone 10 mg tablet 10 mg PO DIRECTED #20 tabs 12/08/24 amoxicillin 875 mg-potassium 1 tab PO BID 7 days #14 tabs 02/26/25 clavulanate 125 mg tablet prednisone 20 mg tablet 40 mg (2 x 20 mg) PO DAILY 5 days 02/26/25 #10 tabs Allergies Allergy/AdvReac Type Severity Reaction Status Date / Time peach [PEACH] Allergy Severe ITCHY Verified 02/26/25 08:11 THROAT pear [PEAR] Allergy Severe ITCHY Verified 02/26/25 08:11 THROAT plum [PLUM] Allergy Severe ITCHY Verified 02/26/25 08:11 THROAT apples Allergy Mild itchy Uncoded 03/02/24 11:14 throat seasonal Allergy Unknown runny nose Uncoded 03/02/24 11:14 Review of Systems Review of Systems: Yes all other systems are reviewed and are negative Constitutional: Constitutional: Reports as per [facility] Past Medical History Attestation statement: The following information was validated with the patient. Source: old records reviewed Medical History Partial small bowel obstruction Crohn's disease Surgical History Hx of endoscopy History of colonoscopy History of colonoscopy Family History Family History Father Alive and well Mother Alive and well Social History Social History Household Members: Family Housing: House Alcohol intake: current Alcohol intake frequency: a few times a month Patient Tobacco Use Status: Never used Tobacco Smoked in Last 30 Days: No Use of substances other than those prescribed or required for medical reasons: Yes Substance Use Type: Marijuana Substance Use Frequency: Socially Advance Directives: No Advance Directives Information Provided: Yes service: No Physical Exam Vital Signs: Vital Signs: Last Vital Signs Temp 97.9 F 02/26/25 16:41 Pulse 100 02/26/25 16:41 Resp 20 02/26/25 16:41 BP 100/50 L 02/26/25 16:41 Pulse Ox 92 02/26/25 16:41 O2 Del Method Room Air 02/26/25 16:41 BMI result Body Mass Index 20.0 Const: General: cooperative, healthy appearing and no acute distress Orientation/consciousness: patient oriented x3 Limitations: no limitations HEENT: Head: Yes normal to inspection and Yes atraumatic Ears: hearing grossly normal bilaterally, external ears normal and TM's normal bilaterally General nose exam: Normal external nose present Face and sinus: Yes normal facial exam Mouth: Normal oral and palatal mucosa present Throat: Yes uvula midline, Yes abnormal tonsil (Mild erythema and swelling), No peritonsillar mass, Yes posterior oropharynx abnormal (Mild erythema), No uvula laterally displaced and No uvular edema Eyes: General: appearance normal, both eyes and all related structures EOM: EOMs intact bilaterally Neck: Neck: Yes normal visual inspection and Yes no meningeal signs Resp: Effort & Inspection: normal respiratory effort and no respiratory distress Auscultation: no crackles and wheezes expiratory wheezes and throughout Cardio: Rate: regular rate and tachycardic Heart sounds: S1 normal heart sound present and S2 normal heart sound present GI: Inspection: Yes normal to inspection Palpation (GI): Soft to palpation, nontender, no guarding and not rigid Skin: Rashes: no rashes Wounds: no wounds Neuro: General: patient oriented x3, tone normal and no meningeal signs Cranial nerves: Yes CN's II-XII intact bilaterally Gait exam (Neuro): Normal gait present Extrem: General: Yes normal to inspection Course Course Course Narrative: -labs reassuring -rapid strep positive, patient given 1st dose of p.o. Augmentin in the ED -COVID/flu/RSV negative >1250--re-evaluation after 2 DuoNebs, IV Solu-Medrol, and IV magnesium lungs CTA. Reports symptomatic improvement. -1442--CXR unremarkable > on re-eval diffuse exp wheeze appreciated > patient would like to avoid admission if at all possible. We will give additional DuoNeb, if still wheezy will be agreeable to stay. -1630--on re-evaluation reports symptomatic improvement. Lungs currently CTA. Will observe for 30 minutes and re-evaluate at 17:00. If still clear plan for discharge home close follow up. If patient wheezy will admit for further management -1715--on re-evaluation patient reports symptomatic improvement. Lungs remain CTA. Safe for discharge home at this time. Patient has inhalers and neb machine at home. Will send additional solution to the pharmacy. Also discharged with prednisone and Augmentin. Strict return precautions discussed. Instructed to call her PCP tomorrow. Results discussed with patient including worrisome signs and symptoms and strict return precautions, and when to return to the emergency department. They verbalized understanding and feel safe for discharge at this time. Medications Administered Discontinued Medications Generic Name Dose Route Start Last Admin Trade Name Freq PRN Reason Stop Dose Admin Albuterol Sulfate 2.5 mg/ 5 mg 02/26/25 10:06 02/26/25 10:12 Albuterol Sulfate 2.5 mg INHALE 02/26/25 10:07 5 mg ONCE ONE Administration Albuterol Sulfate 2.5 mg/ 5 mg 02/26/25 15:39 02/26/25 15:42 Albuterol Sulfate 2.5 mg INHALE 02/26/25 15:40 5 mg ONCE ONE Administration Amoxicillin/Clavulanate Potassium 875 mg 02/26/25 09:52 02/26/25 10:29 Amoxicillin/Potassium Clav 875 Mg Tablet PO 02/26/25 09:53 875 mg ONCE ONE Administration Albuterol Sulfate 2.5 mg/ 0 mg 02/26/25 08:43 02/26/25 08:48 Albuterol/Ipratropium 3 ml INHALE 02/26/25 08:44 5 dose ONCE ONE Administration Magnesium Sulfate 2 gm in 50 mls @ 25 mls/hr 02/26/25 11:13 02/26/25 15:05 Magnesium Sulfate/H2o IV 02/26/25 13:12 Infused ONCE ONE Infusion Methylprednisolone Sodium Succinate 60 mg 02/26/25 08:39 02/26/25 09:04 Methylprednisolone Sod Succ 125 Mg/2 Ml Vial IVPUSH 02/26/25 08:40 60 mg ONCE ONE Administration Medical Decision Making Medical Decision Making MDM Narrative: 24-year-old female with a past medical history Crohn's disease, partial small bowel obstruction, asthma, presenting to the ED complaining of productive cough, chest congestion, SOB, chest discomfort with coughing x 2 days. 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 Mild posterior oropharyngeal erythema with tonsillar erythema and swelling. Uvula midline. Concern for viral illness vs strep pharyngitis vs asthma exacerbation. Rule out pneumonia. Lower suspicion for acute ACS/PE Plan: EKG, labs, CXR, viral testing, rapid strep, ED bronch protocol, IV Solu-Medrol, re-evaluate Please refer to course for remaining clinical decision making, interpretation of labs/imaging results, and discussions with consultants and/or family members. Differential Diagnosis Differential Diagnoses: The differential diagnosis associated with the presentation includes As above Admission/Observation Consideration of admission/observation: Escalation of care including admission/observation considered Lab Data [facility] Lab Attestation statement: I reviewed the patient's lab results. 02/26/25 08:58 02/26/25 08:58 Labs: Lab Results 02/26/25 02/26/25 02/26/25 Range/Units 08:15 08:58 09:11 WBC 8.3 (4.8-10.8) X10*3/uL RBC 4.37 (4.20-5.50) X10*6/uL Hgb 13.3 (12.0-16.0) g/dl Hct 38.9 (37.0-47.0) % MCV 89.0 (80.0-98.0) fL MCH 30.4 (27.0-33.0) pg MCHC 34.2 (31.0-35.0) g/dl RDW 12.4 (11.0-16.0) % Plt Count 259 (160-400) X10*3/uL MPV 10.0 (9.4-12.3) fL Immature Gran % (Auto) 0.2 (0.0-0.4) % Neut % (Auto) 66.7 (45-73) % Lymph % (Auto) 20.0 (20-40) % [place] % (Auto) 8.9 (2-11) % Eos % (Auto) 3.7 (0-4) % Baso % (Auto) 0.5 (0-2) % Lymph # (Auto) 1.7 (1.2-4.9) X10*3/uL [place] # (Auto) 0.7 (0.1-1.2) X10*3/uL Eos # (Auto) 0.3 (0.0-0.4) X10*3/uL Baso # (Auto) 0.0 (0.0-0.2) X10*3/uL Abs Immat Gran (auto) 0.02 (0.00-0.03) X10*3/uL Absolute Neuts (auto) 5.6 (2.0-8.3) x10*3/uL Absolute Nucleated RBC 0.000 (0.0-0.012) X10*3/uL Nucleated RBC % (auto) 0.0 (0.0-0.2) /100WBC Sodium 138 (135-145) mmol/L Potassium 3.6 D (3.3-5.1) mmol/L Chloride 107 (96-108) mmol/L Carbon Dioxide 21 L (22-29) mmol/L Anion Gap 14 (12-20) BUN 9 (9-16) mg/dL Creatinine 0.92 (0.5-1.4) mg/dL Estim Creat Clear Calc 83.7 Estimated GFR > 60 Random Glucose 104 (60-115) mg/dL Calcium 9.3 (8.4-10.2) mg/dL Influenza Type A (PCR) NEGATIVE (Negative) Influenza Type B (PCR) NEGATIVE (Negative) RSV RNA Qual (PCR) NEGATIVE (Negative) SARS-CoV-2 RNA (RT-PCR) NEGATIVE (Negative) S. pyogenes GrpA CARLYLE Positive A (Negative) Independent Interpretation I performed an independent interpretation of an: EKG (My interpretation EKG normal sinus rhythm rate of 99. [place] interval 150. No previous EKGs to compare. No STEMI ) and Plain X-Ray Radiology Impression Discussion of test interpretation with radiology: I have reviewed the radiologist's reading. Independent Historian Clinical information obtained from an independent historian. History obtained from or confirmed by: Parent External Record Review External record reviewed: Inpatient record, Office record, Outpatient record, Prior outpatient labs, Prior outpatient radiology, Primary care record and Outside ED record Tests considered The following testing was considered but not selected: As above Prescription Management I considered prescription management with: Antibiotic and Other Chronic Conditions Patient?s care impacted by: Other (Crohn's disease, asthma) Social Determinants Patient?s care significantly limited by Social Determinants of Health including: Other Social Determinant of Health Critical Care Time Critical Care Time Critical Care Time: Yes Total Critical Care Time: 50 Attestation: I have personally provided critical care time exclusive of time spent on separately billable procedures. Time includes review of lab data, radiology results, discussion with consultants, and monitoring for potential decompensation. Intervention performed as documented. Discharge Plan Discharge Clinical Impression: Acute streptococcal pharyngitis, Asthma exacerbation Patient Disposition: Home, Self-Care Instructions: Asthma (DC), Strep Throat (DC) Additional Instructions: You have strep throat. Augmentin as an antibiotic please take as prescribed In addition you are having an asthma exacerbation Continue to use your inhalers and neb machine at home In addition use prednisone until completed If your symptoms persist or worsen you have difficulty or inability to swallow, persistent or worsening shortness of breath, chest pain, or fever return to the ED Prescriptions: New prednisone 20 mg tablet 40 mg PO DAILY 5 Days Qty: 10 0RF amoxicillin-pot clavulanate 875-125 mg tablet 1 tab PO BID 7 Days Qty: 14 0RF No Action Depo-Estradiol 5 mg/mL oil 5 mg IM Q2W spironolactone 100 mg tablet 100 mg PO DAILY multivitamin Tablet 1 tab PO DAILY metronidazole 500 mg tablet 500 mg PO Q8H Qty: 21 0RF ciprofloxacin HCl 500 mg tablet 500 mg PO BID Qty: 20 0RF prednisone 10 mg tablet 10 mg PO DIRECTED Qty: 102 0RF Rx Instructions: see taper instructions 40mg PO x 1 week 30mg PO x 1 week 25mg PO x 1 week 20mg PO x 1 week 15mg PO x 1 week 10mg PO x 1 week 5mg PO x 1 week ciprofloxacin HCl 500 mg tablet 500 mg PO BID Qty: 20 0RF metronidazole 500 mg tablet 500 mg PO TID Qty: 21 0RF prednisone 10 mg tablet 10 mg PO DIRECTED Qty: 20 0RF Rx Instructions: see taper instructions 40 mg daily x 5 days 30 mg daily x 5 days 20 mg daily x 5 days 10 mg daily x 5 days Referrals: Ariadna Tristan MD [Primary Care Provider] - 3 days Print Language: Zambian
[2025-02-26] MEDS: Albuterol Sulfate 2.5 MG, Albuterol/Iprat 2.5/0.5MG 3 ML 3 ML INHALE (08:48)
[2025-02-26 08:57] LABS: Influenza A PCR NEGATIVE (Negative); Influenza B PCR NEGATIVE (Negative); Resp Syncy Virus RNA Qual PCR NEGATIVE (Negative); SARS COV2 PCR INHOUSE NEGATIVE (Negative)
[2025-02-26 09:03] LABS: MANUAL DIFF FLAG NO
[2025-02-26 09:04] LABS: Basophils Percent Auto 0.5 % (0-2); Eosinophils Absolute Auto 0.3 X10*3/uL (0.0-0.4); Eosinophils Percent Auto 3.7 % (0-4); Hematocrit 38.9 % (37.0-47.0); Hemoglobin 13.3 g/dl (12.0-16.0); Imm Gran Abs Auto 0.02 X10*3/uL (0.00-0.03); Imm Gran Pct Auto 0.2 % (0.0-0.4); Lymphocytes Absolute Auto 1.7 X10*3/uL (1.2-4.9); Mean Corpuscular HGB Conc 34.2 g/dl (31.0-35.0); Mean Corpuscular Hemoglobin 30.4 pg (27.0-33.0); Monocytes Absolute Auto 0.7 X10*3/uL (0.1-1.2); Monocytes Percent Auto 8.9 % (2-11); Neutrophils Absolute Auto 5.6 x10*3/uL (2.0-8.3); Neutrophils Percent Auto 66.7 % (45-73); Platelet Count 259 X10*3/uL (160-400); Red Blood Count 4.37 X10*6/uL (4.20-5.50); Red Cell Distribution Width 12.4 % (11.0-16.0); White Blood Count 8.3 X10*3/uL (4.8-10.8)
[2025-02-26] MEDS: methylPREDNISolone Sod Succ 125 MG/2 ML VIAL 60 MG IVPUSH (09:04)
[2025-02-26 09:20] LABS: IDNOW Serial# 55D5AD1C; Strep A Nucleic Acid Positive (Negative)
[2025-02-26 09:21] LABS: Anion Gap 14 (12-20); Blood Urea Nitrogen 9 mg/dL (9-16); Calcium 9.3 mg/dL (8.4-10.2); Carbon Dioxide 21 mmol/L (22-29); Chloride 107 mmol/L (96-108); Creatinine Clr Calc Pharmacy 83.7; Estimated Glomerular Filt Rate > 60; Glucose Random 104 mg/dL (60-115); Potassium 3.6 mmol/L (3.3-5.1); Sodium 138 mmol/L (135-145)
[2025-02-26] MEDS: Albuterol Sulfate 2.5 MG, Albuterol Sulfate (0.083%) 2.5 MG 5 MG INHALE ×2 (10:12→15:42)
[2025-02-26] MEDS: Amoxicillin/Potassium Clav 875 MG TABLET PO (10:29)
[2025-02-26] MEDS: Magnesium Sulfate/H2O 2 GM/50 ML PIGGYBACK IV (11:31)
--- NOTE | 2025-02-26 15:04 | PC.NURSE ---
wheezing heard throughout, speaking in clear full sentences, provider to bedside for re-eval.
== END 2025-02-26 17:22 | disposition home or self-care (01) ==
PROVIDERS: Physician Assistant; Emergency Provider Emergency Medicine; PCP Family Medicine
DX: J02.0 Streptococcal pharyngitis (principal); J45.901 Unspecified asthma with (acute) exacerbation; R07.89 Other chest pain; R06.02 Shortness of breath; R09.89 Other specified symptoms and signs involving the circulatory and respiratory systems; Z79.899 Other long term (current) drug therapy
CPT/HCPCS: 0241U; 71045; 80048; 85025; 87651; 93005; 94640; 96365; 96366; 96375; 99285; J2919; J3475

== ENCOUNTER → 2025-02-26 08:03 | Outpatient (BNV) | payer MEDICAID, SELFPAY | PROVIDERS: Emergency Provider Emergency Medicine; PCP Family Medicine; Visit Provider Internal Medicine | DX: R06.02 Shortness of breath (principal) | CPT/HCPCS: 93010 ==

== ENCOUNTER → 2025-02-26 12:57 | Outpatient (BNV) | payer MEDICAID, SELFPAY | PROVIDERS: Emergency Provider Emergency Medicine; PCP Family Medicine; Visit Provider Radiology Diagnostic Radiology | DX: R05.9 Cough, unspecified (principal) | CPT/HCPCS: 71045 ==

== ENCOUNTER 2025-04-12 13:03 | Outpatient (REF) | payer MEDICAID, SELFPAY ==
--- OUTSIDE RECORDS SUMMARY | 2025-04-12 15:11 | XMS_ITS | Clinical Summary ---
Author Organization [facility] Address [address] [place] [address] Care Team Providers Care Plant Etiologist Name Role Phone Ariadna Tristan Primary Care Provider [phone] Allergies No known active allergies Medications estradioL [...] Vaccine (1 - 2023-2 5 season) 2024 Alcohol/Substance Use Screening 11/08/2024 Influenza Vaccine (Season Ended) 2025 RSV Vaccine (60+ years old a nd patients) (1 - 1-dose 75+ series) 2075 Pneumococcal Vaccine: Pediat noah (0-5 Years) and At-Risk Patients (6-50 Years) Aged Out No longer eligible b ased on patient's age to complete this topic Insurance [employer] Care Teams Plant Etiologist Relationship Specialty Start Date End Date Azalea, Ariadna Jarvis [address] [place] [address] [id number] PCP - General Family Medicine 02/07/21
== END 2025-04-12 13:04 | disposition home or self-care (01) ==
LOC: HO.HOSX 13:03
PROVIDERS: Visit Provider Orthopaedic Surgery
DX: Z13.89 Encounter for screening for other disorder (principal)

== ENCOUNTER 2025-04-26 12:01 | Outpatient (AMB) | payer MEDICAID, SELFPAY ==
--- NOTE | 2025-04-26 12:07 | MHC.OFFVIS ---
Vital Signs 04/26/25 12:13 Height 5 ft 8 in Weight 119 lb BMI 18.1 BP 110/62 Blood Pressure Location Lt brachial Position Sitting Pulse 72 Pulse Oximetry (%) 96 Oxygen Delivery Method Room Air Intake Visit Reasons: Crohns disease Intake Note: Patient hospital follow up for Crohn's disease. Patient denies any GI issues for today visit. Economics Professor Required: No Accompanied by: Self / Same As Patient Allergies peach (PEACH) Allergy (Severe, Verified 04/26/25 12:07) ITCHY THROAT pear (PEAR) Allergy (Severe, Verified 04/26/25 12:07) ITCHY THROAT plum (PLUM) Allergy (Severe, Verified 04/26/25 12:07) ITCHY THROAT apples Allergy (Mild, Uncoded 03/02/24 11:14) itchy throat seasonal Allergy (Unknown, Uncoded 03/02/24 11:14) runny nose Medication List - Last Reconciled 04/26/25 by Eileen Mcgowan MD albuterol sulfate 2.5 mg (3 mL) inhalation Q4-6H PRN estradiol cypionate (Depo-Estradiol) 1 mg IM Q2W multivitamin 1 tab PO DAILY spironolactone 100 mg PO DAILY HPI HPI Crohns disease: Details: GI clinic visit for this 24 year old male to female gender transfer for FU of crohns disease (JUAN R). Patient has been followed by Dr. López since 2017 Pt was [place] [facility] [place] with SBO due to Crohn's disease: HOSPITAL COURSE: She was admitted to the surgical service for further treatment of the SBO, Crohns flare. Partial small obstruction secondary to exacerbation of her Crohn's disease. There was mention of question of intussusception but it appears to be more of edema of the segment. She was continued on supportive measures and kept NPO, on IVF, PRN analgesics and antiemetics, GI consult for Crohns flare. GI recommended solumedrol 20 mg q8 hr for 48 hrs then transition to short course of PO prednisone and IV flagyl and cipro due to anti inflammatory action and reducing risk of bacterial translocation, and this was initiated. She had improvement in her symptoms and resolution of her abdominal pain and return of GI function. Her diet was advanced as tolerated. On the day of discharge, she was tolerating solid diet without nausea, vomiting or worsening abd pain. She had good GI function. Her abdomen was benign and she was hemodynamically stable. She was discharged to home on 12/08/24 in stable condition. She was discharged on a course of oral prednisone and flagyl/cipro. She is to follow up with Dr Mcgowan for biologic treatment. IBD SUMMARY YEAR OF DIAGNOSIS: 2016 - abd pain, poor appetite, diarrhea, wt loss DISEASE EXTENT/LAST COLONOSCOPY FINDINGS:? 2019 at [facility]. EGD,colonoscopy with chronic gastritis and granuloma, TI with ileitis and erosions, colon with scatered lamina granulomas NEXT COLON DUE: 2023 EXTRAINTESTINAL MANIFESTATIONS: Feels itchy starting Humira/mild hives. denies jt pains, vision is not good - sees dots every where. GI SURGERY:? Appendectomy in 2013 PAST TREATMENTS:? Remicade - stopped since she did not want to come to the hospital Humira 40 mg every 2 weeks since 09/2020 and discontinued on her own Prednisone taper in the past. CURRENT THERAPY:? None - pt was on Humira and stopped several months ago due to a skin rash VACCINATIONS: Hep A/B serology /vaccination:? refuses Hep B vaccination, unsure if got it when younger TB screen:? Negative Nov, 2024 TODAY'S VISIT: Patient denies any GI issues for today visit. Moved to [place] and returned after a month since she didnt like it there Hospitalized with SBO - since I was eating a little crazy - was eating sugary foods and late at night Feels better - watching what she is eating. Denies abd pain, diarrhea or constipation. Has a BM daily without any blood in the stool. Denies recent change in wt or appetite - lost a few lbs attributes it to going to the Gym Stopped taking Humira since she was getting a rash. Does not want to start any treatment Had breast augmentation and facial feminization (mandible contouring and shaving of marlow apple by a plastic surgeon in [place] (Dr Gill) - on 12/08/22. ([facility] [phone]) Was off the Humira for a month. Had a self limited flare 3 weeks ago which has resolved. Having 2-3 BMs a day - had diarrhea which has resolved. On a strict diet - no meat or dairy otherwise he would have a flare up. Patient reports his anal fissure has resolved. Moving to [facility] this weekend and plans to establish with a GI physician in [place] PAST VISIT: Has been doing pretty good Having breast augmentation and facial feminization (mandible contouring and shaving of ele apple by a plastic surgeon in [place] (Dr Gill) - scheduled on 12/08/22. ([facility] [phone]) Pt was advised to stop all medications for a month Last dose of Humira was 11/07/23. Lab results reviewed with the patient. Has been gaining weight Abd pain and bloating has been OK. Denies recent dizziness Has 2-3 non-bloody BMs in a day - vary between soft to hard. Last Humira injection was 06/07/22 - next injection due on 06/21/22 Also taking estrogens. Denies abdominal pain. Appetite is good and thinks she is under weight. Has been smoking weed a lot - which helps her eat. Unable to eat if she does not take weed - takes 2-3 times a day. Patient denies symptoms of heartburn, dysphagia, nausea, vomiting, change in appetite or weight.? Admits to getting acid reflux usually at night and does not take any medication for it. Has a BM 2 times a day - varies between soft to runny - with mucous and just a little bit of blood intermittently - ? once a week. Patient denies major cardiac or pulmonary problems, loud snoring or sleep apnea Denies problems with anesthesia in the past. Denies being on chronic anticoagulation - Denies taking Ibuprofen recently. Denies smoking tobacco. Patient denies known family history of IBD, colon polyps, colon cancer or other GI malignancies. Several family members with stomach issues - GM, Mom and sister has IBS, PAST GI HISTORY BY REVIEW OF MEDICAL RECORDS: Pt was last seen by Dr López in 02/2021: 20 yr old male to female gender transfer with crohns disease called for f/u (JUAN R) RECAP: Dx with crohns 2016--EGD,colonoscopy with chronic gastritis and granuloma, TI with ileitis and erosions, colon with scatered lamina granulomas She was then commenced on remicade 2018 due to worsening sx she was on consistently for a while then started and stopped, last dose 2-3 months ago (didn;t like the idea of coming to hospital for infusions) since then not doing so good main sx, with cramps, diarrhea every morning, goes to toilet 3-4 times a day no blood in stools weight is going down mild nausea, no vomiting on vegetarian diet smokes THC, but not nicotine no alcohol use she went to the ED and d/c with pain med and short course of steroids Due to above sx changed to humira and had labs checked 08/2020--CRP : 9, WCC nml, mild anemia, nutrients were ok rept labs 11/2009--CRP 1.3, hgb improved TB spot neg HM--refuses Hep B vaccination, unsure if got it when younger INTERIM: feeling back to normal minimal pain toilet few times a day, no blood in stool appetite is good otherwise no joint swelling or pain no skin rashes no hx of uveitis been taking humira, compliant with it tolerating well, no Se from medication 1/ Crohns disease of large and small bowel, active disease after stopping remicade, CT with ileal thickening and lymphadenoapthy, now improved clinically with humira, CRP coming down nicely but need updated labs, still not went from last time PLAN: 1/ Cont with humira, 2/ recheck labs as originally planned catherine CRP, WCC make sure CRP has normalized 3/ has refused hep B vaccine IMAGING STUDIES:? 12/06/[address] SCAN SHOWED: Consider acute Crohn's disease with questionable intussusception, ileocecal resulting in partial/incomplete distal small bowel obstruction. 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 08/[address] SCAN SHOWED: Consistent with the provided history of Crohn's disease, there is wall thickening of the terminal ileum and of a mid small bowel loop within the right abdomen. A nonobstructing small bowel intussusception associated with this focal mid small bowel wall thickening. No obstruction, ileus, abscess or free intraperitoneal air is seen. There are shotty, nonpathologically enlarged mesenteric lymph nodes. A small amount of free fluid is seen within the dependent pelvis. PFSH Medical History Partial small bowel obstruction Crohn's disease Surgical History Hx of endoscopy History of colonoscopy History of colonoscopy Family History Father Alive and well Mother Alive and well Social History Household Members: Family Housing: House Alcohol intake: current Alcohol intake frequency: a few times a month Patient Tobacco Use Status: Never used Tobacco Substance Use Type: Marijuana service: No Review of Systems Const Reports fatigue, Denies fever(s), Denies headache(s) and Reports weight loss Eyes Denies eye discharge and Denies irritation ENT Reports Normal hearing present, Denies dysphagia, Denies dizziness and Denies headache(s) Card Denies chest pain, Denies leg edema and Denies dyspnea on exertion Resp Denies cough, Denies dyspnea on exertion and Denies wheezing GI Reports abdominal pain, Reports bloating, Denies change in bowel habits, Denies dysphagia, Denies heartburn, Reports diarrhea and Reports other (loss of appetite) Musc Denies back pain and Denies arthralgias Skin/Breast Denies pruritus, Denies rash and Denies jaundice Neuro Reports Normal hearing present, Denies Abnormal speech present, Denies dizziness, Denies headache(s) and Denies seizure-like activity Psych Denies anxiety, Denies depression and Denies panic attacks Endo Denies cold intolerance, Reports fatigue, Denies flushing and Denies heat intolerance Tavares/Lymph Denies easy bleeding and Denies easy bruising Aller/Immun Denies wheezing Physical Exam Vital Signs: Last Vital Signs Pulse 72 04/26/25 12:13 BP 110/62 04/26/25 12:13 Pulse Ox 96 04/26/25 12:13 Oxygen Delivery Method Room Air 04/26/25 12:13 BMI result Body Mass Index 18.1 Const General: healthy appearing and no acute distress Nutritional Appearance: underweight Orientation/consciousness: patient oriented x3 Limitations: no limitations HEENT Head: Yes normal to inspection Ears: hearing grossly normal bilaterally Eyes Sclerae: sclerae normal Pupils: Equal, round and reactive pupils present Neck Neck: Yes normal visual inspection Chest Chest palpation & inspection: normal inspection of the chest Resp Effort & Inspection: normal respiratory effort Auscultation: clear to auscultation bilaterally Cardio Palpation: normal PMI Rate: regular rate Rhythm: regular rhythm Heart sounds: S1 normal heart sound present, S2 normal heart sound present and no murmurs GI Palpation (GI): Soft to palpation, nontender and No hepatosplenomegaly present Auscultation: normal bowel sounds Rectal Exam - Male: Yes deferred Skin General skin exam: no rashes or lesions noted Neuro General: patient oriented x3, gait normal and moves all extremities Cranial nerves: Yes Equal, round and reactive pupils present and Yes Normal hearing present Speech: No Abnormal speech present Psych Appearance: grossly normal Mental Status: mental status grossly normal Assessment & Plan Assessment & Plan (1) GERD (gastroesophageal reflux disease): Code(s): K21.9 - Gastro-esophageal reflux disease without esophagitis Category: Medical (2) Crohn's disease: Code(s): K50.90 - Crohn's disease, unspecified, without complications Category: Medical Plan JUAN R is a 24 year old male to female gender transfer for FU of ileo-colonic crohns disease diagnosed in 2016. Pt switched from Remicade to Humira (did not want to come in for infusions) in 09/2020 She did have low level antibodies previously at [facility] for remicade (given he stopped and started it a few times), CT scan showed ileal thickening and lymphadenoapthy Patient refuses vaccines due to health beliefs Nausea and decreased appetite likely due to estrogen. Normal CRP and pt was advised to check fecal calprotectin Humira levels was 9.6 (therpeutic trough level > 7.5 and antibodies were < 10 (negative) Continue Humira every 2 weeks and may need to switch to weekly dosing if fecal calprotectin is elevated ? Continue famotidine 20 mg at bedtime for heartburn. Preparation H for hemorrhoids (since 2.5% hydrocortisone cream not covered by her insurance) 04/26/25 Pt was hospitalized in November 2024 with small-bowel obstruction. Responded to IV steroids and discharged on prednisone taper and p.o. antibiotics Patient denies abdominal pain, diarrhea, constipation or rectal bleeding She does not want to resume treatment for Crohn's disease at present Agreeable to scheduling an upper endoscopy and colonoscopy - request sent to GI clubhouse attendant. Follow-up in 3 months. Orders: Orders Comprehensive Met. Panel Today K50.90 - Crohn's disease, unspecified, without complications Calprotectin, Fecal Today K50.90 - Crohn's disease, unspecified, without complications EGD/[place] Combo - GI Use Only Today K21.9 - Gastro-esophageal reflux disease without esophagitis, K50.90 - Crohn's disease, unspecified, without complications C Reactive Protein Today K50.90 - Crohn's disease, unspecified, without complications Complete Blood Count Auto Diff Today K50.90 - Crohn's disease, unspecified, without complications Vitamin D 25-OH Total Today K50.90 - Crohn's disease, unspecified, without complications Vitamin B12 and Folate Today K50.90 - Crohn's disease, unspecified, without complications Medications: New polyethylene glycol 3350 (Miralax) Mix Miralax with 64 oz(8 cups) of Crystal light. Take 2 tablets of Dulcolax qt 12 pm. Wait to have your 1st bowel movement, then begin drinking Miralax. Drink a glass of Miralax every 10-15 minutes until you are finished. You will drink at least another 4 cups of clear liquid of your choice over the next 2 hours. Please drink as many clear liquids as possible You may have clear liquids up to four hours before your procedure 17 grams PO DAILY 238 grams 0RF colon prep 1 day bisacodyl (Dulcolax (bisacodyl)) Take 4 tablets at 12 pm the day before colonoscopy appointment 20 mg (4 x 5 mg) PO ONCE 4 tabs 0RF colon prep 1 day Changed From multivitamin 1 tab PO DAILY To multivitamin 1 tab PO DAILY 90 tabs 1RF 90 days Coding Level of Care Code Est Pt Level 4 (70842) Diagnoses GERD (gastroesophageal reflux disease) K21.9 Crohn's disease K50.90 Time Spent (min) 21
[2025-04-26 12:13] VITALS: BP 110/62; PULSE 72; O2SAT 96; BMI 18.1
--- OUTSIDE RECORDS SUMMARY | 2025-04-26 13:24 | XMS_ITS | Clinical Summary ---
Author Organization [facility] Address [address] [place] [address] Care Team Providers Care Ekg Technician Name Role Phone Ariadna Tristan Primary Care Provider [phone] Allergies No known active allergies Medications estradioL [...] patient's age to complete this topic Insurance [employer] Care Teams Ekg Technician Relationship Specialty Start Date End Date Azalea, Ariadna Jarvis [address] [place] [address] [phone] PCP - General Family Medicine 02/07/21
== END 2025-04-26 12:56 | disposition home or self-care (01) ==
LOC: HO.HGI 12:02
PROVIDERS: PCP Family Medicine; Visit Provider Internal Medicine Gastroenterology
DX: K21.9 Gastro-esophageal reflux disease without esophagitis (principal); K50.90 Crohn's disease, unspecified, without complications
CPT/HCPCS: 99214

== ENCOUNTER → 2025-04-26 12:01 | Outpatient (BNVA) | payer MEDICAID, SELFPAY | PROVIDERS: PCP Family Medicine; Visit Provider Internal Medicine Gastroenterology | DX: K21.9 Gastro-esophageal reflux disease without esophagitis (principal); K50.90 Crohn's disease, unspecified, without complications; Z79.899 Other long term (current) drug therapy | CPT/HCPCS: 99212 ==

== ENCOUNTER 2025-05-03 11:57 | Outpatient (REF) | payer MEDICAID, SELFPAY ==
[2025-05-03 12:16] LABS: MANUAL DIFF FLAG NO
[2025-05-03 12:31] LABS: Basophils Absolute Auto 0.1 X10*3/uL (0.0-0.2); Basophils Percent Auto 0.6 % (0-2); Eosinophils Absolute Auto 0.1 X10*3/uL (0.0-0.4); Eosinophils Percent Auto 0.9 % (0-4); Hematocrit 36.9 % (42.0-52.0); Hemoglobin 12.1 g/dl (14.0-18.0); Imm Gran Abs Auto 0.04 X10*3/uL (0.00-0.03); Imm Gran Pct Auto 0.3 % (0.0-0.4); Lymphocytes Absolute Auto 1.3 X10*3/uL (1.2-4.9); Lymphocytes Percent Auto 11.1 % (20-40); Mean Corpuscular HGB Conc 32.8 g/dl (31.0-36.0); Mean Corpuscular Hemoglobin 29.4 pg (27.0-33.0); Mean Corpuscular Volume 89.6 fL (80.0-98.0); Mean Platelet Volume 10.2 fL (9.4-12.4); Monocytes Absolute Auto 0.5 X10*3/uL (0.1-1.2); Neutrophils Absolute Auto 9.5 x10*3/uL (2.0-8.3); Neutrophils Percent Auto 83.1 % (45-73); Platelet Count 350 X10*3/uL (160-400); Red Blood Count 4.12 X10*6/uL (4.60-5.80); Red Cell Distribution Width 13.2 % (11.0-16.0); White Blood Count 11.4 X10*3/uL (4.8-10.8)
[2025-05-03 12:58] LABS: Alanine Aminotransferase 19 U/L (0-40); Albumin Level 4.3 g/dL (3.5-5.0); Alkaline Phosphatase 60 U/L (39-117); Anion Gap 12 (12-20); Aspartate Amino Transferase 71 U/L (5-37); Bilirubin Direct 0.2 mg/dL (0.0-0.5); Bilirubin Total 0.4 mg/dL (0.0-1.0); Blood Urea Nitrogen 14 mg/dL (9-16); C Reactive Protein 0.62 mg/dL (< or = 0.50); Calcium 9.3 mg/dL (8.4-10.2); Carbon Dioxide 26 mmol/L (22-29); Chloride 103 mmol/L (96-108); Estimated Glomerular Filt Rate > 60; Glucose Random 77 mg/dL (60-115); Potassium 4.3 mmol/L (3.3-5.1); Sodium 137 mmol/L (135-145); Total Protein 7.6 g/dL (6.5-8.0)
[2025-05-03 13:27] LABS: Vitamin D 25-OH Total 30.7 ng/mL (>30)
[2025-05-03 13:30] LABS: Folate 10.2 ng/mL (> or = 4.0); Vitamin B12 502 pg/mL (200-900)
--- OUTSIDE RECORDS SUMMARY | 2025-05-03 14:21 | XMS_ITS | Clinical Summary ---
Author Organization [facility] Address [address] [place] [address] Care Team Providers Care Tile Erector Name Role Phone Ariadna Tristan Primary Care Provider [phone] Allergies No known active allergies Medications estradioL [...] patient's age to complete this topic Insurance [employer] Care Teams Tile Erector Relationship Specialty Start Date End Date Azalea, Ariadna Jarvis [address] [place] [address] [phone] PCP - General Family Medicine 02/07/21
[2025-05-06 16:43] LABS: Testosterone, Total 32 ng/dL (250-1100)
[2025-05-10 03:04] LABS: Calprotectin, Fecal 1030 mcg/g
[2025-05-13 07:48] LABS: Estradiol Ultra Sensitive 228 pg/mL (< OR = 29)
== END 2025-05-03 11:58 | disposition home or self-care (01) ==
LOC: HO.LAB 11:57
PROVIDERS: Family Medicine; Visit Provider Internal Medicine Gastroenterology
DX: F64.9 Gender identity disorder, unspecified (principal); K50.90 Crohn's disease, unspecified, without complications
CPT/HCPCS: 36415; 80053; 80076; 82248; 82306; 82607; 82670; 82746; 83993; 84403; 85025; 86140

== ENCOUNTER 2025-05-28 10:30 | Day surgery (SDC) | payer MEDICAID, SELFPAY ==
--- OUTSIDE RECORDS SUMMARY | 2025-05-08 13:46 | XMS_ITS | Encounter Summary ---
Author Organization [employer] Address [address] [place] [address] [address] [place] [address] Care Team Providers Care Associate Music Professor Name Role Phone Ariadna Tristan MD Primary Care Provider [phone]- [phone] Eileen Mcgowan MD Unavailable [phone] Encounter Details Date Type Department Care Team (Late Contact Info) Description 05/28/2023 Abstract [facility] MEDICINE [address] [place] [phone] Ariadna Tristan MD [address] [place] [phone] Social History Tobacco Use Types Packs/Day Years [...] Encounters Date Type Department Care Team (Late Contact Info) Description 05/14/2025 1:30 PM EDT Clinical Support [facility] MEDICINE [address] [place] [phone] documented as of this encounter Visit Diagnoses Not on filedocumented in this encounter Care Teams Associate Music Professor Relationship Specialty Start Date End Date Azalea, MD Ariadna [address] [place] [phone] PCP - General Family Medicine 07/19/19 Eileen Mcgowan MD [address] [place] [address] 3[address] [place] [address] Gastroenterology 04/27/25 documented as of this encounter
--- OUTSIDE RECORDS SUMMARY | 2025-05-08 13:46 | XMS_ITS | Clinical Summary ---
Author Organization [facility] Address [address] [place] [address] Care Team Providers Care Van Driver Name Role Phone Ariadna Tristan Primary Care Provider [phone]- [phone] Allergies No known active allergies Medications estradioL [...] 2024 Alcohol/Substance Use Screening 11/08/2024 Influenza Vaccine (#1) 2025 RSV Vaccine (60+ years old a nd patients) (1 - 1-dose 75+ series) 2075 Pneumococcal Vaccine: Pediat noah (0-5 Years) and At-Risk Patients (6-50 Years) Aged Out No longer eligible b ased on patient's age to complete this topic Insurance Beyond Verbal Care Teams Van Driver Relationship Specialty Start Date End Date [place], Ariadna Jarvis [address] [place] [address] [phone] PCP - General Family Medicine 02/07/21
[2025-05-24 13:34] VITALS: BMI 18.1
--- NOTE | 2025-05-24 15:05 | HO.ANESPROP2 ---
Documented by User: Jodi Marrero NP 05/24/25 15:07 HPI - Anesthesia Eval Consult details Narrative: 24yo F for Upper Endoscopy and Colonoscopy MtoF transgender - no HCG PMFSH Active Problems Active Problems: All Active Problems Crohn's disease (Acute) Anal fissure (Acute) GERD (gastroesophageal reflux disease) (Acute) Crohn's disease (Acute) Past Medical History Medical History Asthma Partial small bowel obstruction Crohn's disease Family History Family History Father Alive and well Mother Alive and well Surgical History Surgical History Hx of breast implants, bilateral Hx of appendectomy Hx of endoscopy History of colonoscopy History of colonoscopy Social History Social History Household Members: Family Housing: House Alcohol intake: current Alcohol intake frequency: a few times a month Patient Tobacco Use Status: Former Tobacco user Use of substances other than those prescribed or required for medical reasons: No Substance Use Type: Marijuana Are you DNR?: No Advance Directives: No Advance Directives Information Provided: Yes service: No Meds Allergies Allergy/AdvReac Type Severity Reaction Status Date / Time peach (PEACH) Allergy Severe ITCHY Verified 05/28/25 11:13 THROAT pear (PEAR) Allergy Severe ITCHY Verified 05/28/25 11:13 THROAT plum (PLUM) Allergy Severe ITCHY Verified 05/28/25 11:13 THROAT apples Allergy Mild itchy Uncoded 03/02/24 11:14 throat seasonal Allergy Unknown runny nose Uncoded 03/02/24 11:14 Home Medications ?Medication ?Instructions ?Recorded ?Confirmed ?Last Taken ?Type spironolactone 100 mg tablet 100 mg PO DAILY 12/06/24 05/28/25 12/04/24 History estradiol cypionate 5 mg/mL 1 mg IM Q2W 04/26/25 05/28/25 Unknown History intramuscular oil (Depo-Estradiol) medroxyprogesterone 2.5 mg tablet 2.5 mg PO DAILY 05/28/25 05/28/25 Unknown History Exam Height,Weight and Vital Signs: Height 5 ft 8 in Weight 53.977 kg Pertinent Lab Results Pertinent Lab Results: Laboratory Tests 05/03/25 12:13 WBC 11.4 H Hgb 12.1 L Hct 36.9 L Plt Count 350 D Sodium 137 Potassium 4.3 Chloride 103 Carbon Dioxide 26 BUN 14 Creatinine 1.07 Assessment and Plan Assessment Anesthesia Assessment: Chart Reviewed Documented by User: Sherie Long MD 05/28/25 11:37 PMFSH Past Medical History Medical History Asthma Partial small bowel obstruction Crohn's disease Family History Family History Father Alive and well Mother Alive and well Surgical History Surgical History Hx of breast implants, bilateral Hx of appendectomy Hx of endoscopy History of colonoscopy History of colonoscopy History of Problems with Anesthesia: No Social History Social History Household Members: Family Housing: House Alcohol intake: current Alcohol intake frequency: a few times a month Patient Tobacco Use Status: Former Tobacco user Use of substances other than those prescribed or required for medical reasons: No Substance Use Type: Marijuana Are you DNR?: No Advance Directives: No Advance Directives Information Provided: Yes service: No Meds Allergies Allergy/AdvReac Type Severity Reaction Status Date / Time peach (PEACH) Allergy Severe ITCHY Verified 05/28/25 11:13 THROAT pear (PEAR) Allergy Severe ITCHY Verified 05/28/25 11:13 THROAT plum (PLUM) Allergy Severe ITCHY Verified 05/28/25 11:13 THROAT apples Allergy Mild itchy Uncoded 03/02/24 11:14 throat seasonal Allergy Unknown runny nose Uncoded 03/02/24 11:14 Home Medications ?Medication ?Instructions ?Recorded ?Confirmed ?Last Taken ?Type spironolactone 100 mg tablet 100 mg PO DAILY 12/06/24 05/28/2512/04/25 History estradiol cypionate 5 mg/mL 1 mg IM Q2W 04/26/25 05/28/25 Unknown History intramuscular oil (Depo-Estradiol) medroxyprogesterone 2.5 mg tablet 2.5 mg PO DAILY 05/28/25 05/28/25 Unknown History Exam Airway Mallampati Class: II TM Dist: >3cm Neck ROM: Full Loose/Missing/Broken Teeth: No Heart: RRR Lungs: CTA Assessment and Plan Assessment Anesthesia Assessment: Anesthesia Plan Discussed Final Anesthetic Review History of Problems with Anesthesia: No NPO: Yes ASA Class: II Final Preanesthetic Review: Meds/Allgs Chart Reviewed, Consent Obtained/Reviewed and Anes Risks/Benef Reviewed Patient Risk: Low Procedure Risk: Intermediate Anesthetic Plan Anesthetic Plan: MAC: Disposition: Standard PACU
[2025-05-28 11:14] VITALS: BMI 17.9
[2025-05-28 11:26] VITALS: BP 104/61; PULSE 54; RESP 14; TEMP 36.6; O2SAT 98
[2025-05-28] MEDS: Lactated Ringers 1,000 ML 100 ML IVCONT (11:28)
--- NOTE | 2025-05-28 12:20 | MHC.SHP ---
Pre-Procedural Eval Section A - 24 Hr Update-Section A only Date of Service: 05/28/25 The patient is an INPATIENT: No The patient has been examined within 24 hours of the surgical procedure. The History & Physical has been completed within 30 days and I have reviewed it.: No Section B - Complete if H&P > 30 days Chief Complaint: Crohn's disease, unspecified, without complication Relevant Family History (Specify if Yes): No Relevant Social History: None Present Medications: see Short Stay Collaborative assessment Medical History: Significant History (Partial small bowel obstruction Crohn's disease) History of Previous Operations: Relevant previous surgery/procedure and date(s) (History of EGD and colonoscopy) Allergies: Allergies Allergy/AdvReac Type Severity Reaction Status Date / Time peach (PEACH) Allergy Severe ITCHY Verified 05/28/25 11:13 THROAT pear (PEAR) Allergy Severe ITCHY Verified 05/28/25 11:13 THROAT plum (PLUM) Allergy Severe ITCHY Verified 05/28/25 11:13 THROAT apples Allergy Mild itchy Uncoded 03/02/24 11:14 throat seasonal Allergy Unknown runny nose Uncoded 03/02/24 11:14 Review of Systems Sugical H&P ROS: Negative: Constitution, Cardiovascular, Respiratory and Gastrointestinal Exam Surgical H&P Exam: Normal: Heart, Normal: Lungs, Normal: Extremities and Normal: Abdomen Plan Diagnosis/Plan: Unchanged I have reviewed the history and physical and performed a pertinent physical examination on my patient. No changes have occurred unless specified. Time Spent With Patient Time: Total time managing care of this patient today ____ minutes.
--- NOTE | 2025-05-28 12:36 | HO.OPN-COLON ---
Colonoscopy Operative Note Operative Note Date of Service: 05/28/25 Narrative: FLEXIBLE TRANSORAL UPPER GASTROINTESTINAL ENDOSCOPY WITH BIOPSIES AND COLONOSCOPY TILL CECUM WITH BIOPSIES Pre-op diagnosis: FU of Crohn's disease, GERD Post-op diagnosis: Gastritis, multiple gastric and small bowel ulcers, Colon Polyp, hemorrhoids Endoscopist:? Eileen Mcgowan MD Anesthesia:?MAC UPPER ENDOSCOPY Consent: Indications for the procedure and potential complications of bleeding, perforation, reaction to medications and missed diagnosis were discussed with the patient and informed consent was obtained. Instrument: Olympus GIF H 190 mid size upper endoscope Monitoring: Vital signs and clinical assessment, continuous EKG monitoring, Pulse oximetry, Carbon Dioxide monitoring and blood pressure monitoring were done throughout the procedure. Procedure: The patient was placed in the left lateral decubitis position and pre-procedure medications were administered and a bite block was placed. The endoscope was inserted into the mouth and advanced under direct vision to the third part of duodenum. A careful inspection was made as the upper endoscope was withdrawn including a retroflexed examination of the proximal stomach; Findings and interventions are described below. Findings: Larynx: Normal Esophagus: GE junction at 40 cms. No esophagitis or Gary's. Stomach: Moderate diffuse gastric erythema - biopsies were obtained from the gastric body and antrum. Grade 2 flap valve on retroflexed examination of the cardia. Duodenum: Scattered 3-4 mm chronic appearing ulcers in the bulb and descending duodenum Biopsies were obtained from descending duodenum for FU of Crohn's disease Intervention: Biopsies as noted above COLONOSCOPY PROCEDURE NOTE Instrument: Olympus PCF H 190 L variable stiffness pediatric colonoscope Monitoring: Vital signs and clinical assessment, intermittent blood pressure monitoring, continuous EKG monitoring, Pulse oximetry and Carbon Dioxide monitoring were done throughout the procedure. Please see anesthesia flowsheet. Colon withdrawl time was 20 minutes. Procedure: The patient was placed in the left lateral decubitis position and pre-procedure medications were administered. After a digital rectal examination of the ano-rectum, the video colonoscope was inserted into the rectum and advanced through the colon to the cecum. The colonoscope was slowly withdrawn in a retrograde panoramic fashion and the colon mucosa was carefully examined including a retroflexed view of the rectum. Findings and interventions are described below. Procedure Difficulty: without difficulty - there was spasm in the colon during intubation Findings: Terminal Ileum: Unable to intubate the TI due to narrowing Cecum: Deformed appearance of the cecum and ICV with edema, erythema, friable mucosa with ulcerations with exudate - biopsies were obtained. Ascending Colon: Edema, erythema, friable mucosa with ulcerations - biopsies obtained Transverse Colon: Edema, erythema, friable mucosa Descending Colon: Edema, erythema, friable mucosa Sigmoid Colon: Edema, erythema, friable mucosa Rectum: A 2-3 mm sessile polyp - removed with a cold biopsy. Edema, erythema, friable mucosa Ano-rectum: Normal Colon preparation: Good to fair despite copious irrigation. [place] Bowel Preparation Scale Right colon; 2 Transverse colon: 1 Left colon; 2 (0 = Unprepared colon segment with mucosa not seen due to solid stool that cannot be cleared. 1 = Portion of mucosa of the colon segment seen, but other areas of the colon segment not well seen due to staining, residual stool and/or opaque liquid. 2 = Minor amount of residual staining, small fragments of stool and/or opaque liquid, but mucosa of colon segment seen well. 3 = Entire mucosa of colon segment seen well with no residual staining, small fragments of stool or opaque liquid) Impression and Post Procedure Diagnosis: Endoscopy Findings: ESOPHAGUS: Normal STOMACH: A few 2-3 mm superficial ulcers in the antrum. DUODENUM: Scattered 3-4 mm chronic appearing ulcers in the bulb and descending duodenum Colonoscopy Findings: One small polyps was removed Deformed appearance of the cecum and ICV with edema, erythema, friable mucosa with ulcerations with exudate - biopsies were obtained. Edema, erythema, friable mucosa without ulcerations in the transverse and left colon. Plan: Pt has a FU appointment on 07/26/[address] Mcgowan Repeat Colonoscopy in 2 years for FU of Crohn's disesase. A summary of above findings and relevant handouts were given to the patient. Pt was advised to resume treatment for Crohn's disease ( switch to risankizumab -Skyrizi) since she complains of skin rash after taking Humira BIOPSIES SHOWED: A. Small bowel, ulcer, biopsy: Focal active enteritis with associated submucosal granulation tissue; preserved villous architecture and no increased intraepithelial lymphocytes seen. B. Stomach, antrum, biopsy: Gastric antral mucosa with moderate chronic inactive gastritis; negative for Helicobacter pylori, intestinal metaplasia and dysplasia. C. Stomach, body, biopsy: Gastric body mucosa within normal limits; negative for Helicobacter pylori, intestinal metaplasia and dysplasia. D. Colon, cecum, biopsy: Colonic mucosa with a single mucosal granuloma; negative for active, chronic or microscopic colitis. E. Colon, ascending, biopsy: Active colitis, patchy, with mild activity. F. Colon, transverse, biopsy: Colonic mucosa within normal limits; negative for active, chronic or microscopic colitis. G. Colon, left side, biopsy: Colonic mucosa within normal limits; negative for active, chronic or microscopic colitis. H. Rectum, polypectomy: Hyperplastic polyp and incidental mucosal granuloma. I. Rectum, biopsy: Active colitis with mild activity and surface erosion. COMMENT: No dysplasia seen in any of the biopsies. Patient placed on the colonoscopy recall list for repeat colonoscopy in 2 years.
[2025-05-28 13:27] VITALS: BP 107/60; PULSE 80; RESP 20; TEMP 36.1; O2SAT 100
[2025-05-28 13:42] VITALS: BP 118/55; PULSE 65; RESP 20; TEMP 36.1; O2SAT 100
== END 2025-05-28 14:09 | disposition home or self-care (01) ==
PROVIDERS: PCP Family Medicine; Visit Provider Internal Medicine Gastroenterology
PROC: (CPT 45380; principal; 2025-05-28 12:50)
DX: K50.90 Crohn's disease, unspecified, without complications (principal); K62.1 Rectal polyp; K64.8 Other hemorrhoids; K57.30 Diverticulosis of large intestine without perforation or abscess without bleeding; K21.9 Gastro-esophageal reflux disease without esophagitis; K29.50 Unspecified chronic gastritis without bleeding; K52.9 Noninfective gastroenteritis and colitis, unspecified; K25.9 Gastric ulcer, unspecified as acute or chronic, without hemorrhage or perforation; K26.9 Duodenal ulcer, unspecified as acute or chronic, without hemorrhage or perforation; Z87.891 Personal history of nicotine dependence; Z79.899 Other long term (current) drug therapy
CPT/HCPCS: 45380; 43239; 88305; 88313; 88342; J2003; J2704

== ENCOUNTER → 2025-05-28 10:30 | Outpatient (BNV) | payer MEDICAID, SELFPAY | PROVIDERS: PCP Family Medicine; Visit Provider Internal Medicine Gastroenterology | DX: K63.5 Polyp of colon (principal); K64.8 Other hemorrhoids; K29.70 Gastritis, unspecified, without bleeding; K25.9 Gastric ulcer, unspecified as acute or chronic, without hemorrhage or perforation; K21.9 Gastro-esophageal reflux disease without esophagitis | CPT/HCPCS: 43239; 45380 ==

== ENCOUNTER 2025-06-07 07:15 | Outpatient (REF) | payer MEDICAID, SELFPAY ==
--- NOTE | ~2025-06-07 | XR_ITS ---
EXAMINATION: XR PELVIS 1-2 VIEWS HISTORY: M25.559 - Pain in unspecified hip COMPARISON: There are no prior studies available for comparison. FINDINGS: A single AP view of the pelvis is submitted. Osseous mineralization is normal. There is no fracture or dislocation. The hip and sacroiliac joints are maintained. There are surgical clips in the pelvis bilaterally. XR/XR pelvis 1-2V IMPRESSION: Unremarkable examination of the pelvis. Electronically signed by: Sb Feliciano MD 06/07/2025 02:27 PM EDT
--- OUTSIDE RECORDS SUMMARY | 2025-06-07 07:17 | XMS_ITS | Encounter Summary ---
Author Organization [facility] Address [address] [place] [address] Phone Care Team Providers Care Parole Officer Name Role Phone Ariadna Tristan MD Primary Care [facility] Encounter Details Date Type Department Care Team (Late st Contact Info) Description 08/14/2022 Telephone [facility] [address] [place] [address] Ariadna Tristan MD [address] [place] [address] Social History Tobacco Use Types Packs/Day Years Used Date Smoking Tobacco: Former Smokeless Tobacco: Never Alcohol Use Standard Drinks/Week Comments No 0 (1 standard drink = 0.6 oz pur e alcohol) Sex and Gender Information Value Date Recorded Sex Assigned at Male 08/28/2019 10:10 PM EDT Legal Sex Male 8:37 AM EDT Gender Identity Female 04/24/2022 3:33 PM EDT Sexual Orientation Don't know 08/28/2019 10 :11 PM EDT Occupation Industry Job Start Date Job End Date Student at [employer] Not on file Not on file Not on file documented as of this encounter Plan of Treatment Not on file documented as of this encounter Visit Diagnoses Not on filedocumented in this encounter Care Teams Parole Officer Relationship Specialty Start Date End Date Ariadna Tristan MD [address] [place] [address] PCP - General Family Medicine 04/29/22 Cristy Prather [place] Psychologist 05/31/19 documented as of this encounter Additional Source Comments The information contained in this document represents components of the legal health record. It is not the complete legal health record.[facility]
--- OUTSIDE RECORDS SUMMARY | 2025-06-07 07:17 | XMS_ITS | Clinical Summary ---
Author Organization [facility] Address [address] [place] [address] Care Team Providers Care Access Director Name Role Phone Ariadna Tristan Primary Care Provider [phone] Allergies No known active allergies Medications estradioL [...] patient's age to complete this topic Insurance [employer] Care Teams Access Director Relationship Specialty Start Date End Date [place], Ariadna Jarvis [address] [place] [address] [id number] PCP - General Family Medicine 02/07/21
--- OUTSIDE RECORDS SUMMARY | 2025-06-07 07:17 | XMS_ITS ---
Author Organization [employer] Address [address] [place] [address] Care Team Providers Care Dyeing Machine Feeder Name Role Phone [place], Ariadna PEREZ Primary Care Provider [phone] Eileen Mcgowan MD Unavailable [phone] [facility] Status:Enrolled (Active) Start date:02/27/2025 Enrollment date:03/27/2025 Enrollment reason:ADT Feed Overview ED- Pt went to [facility] [place] [place] ED on 02/26/25. Case Team Name Relationship Phone Zoe Diaz RN(Responsible Staff) Registered Nurse [phone] Continued Care and Services Coordination
== END 2025-06-07 07:16 | disposition home or self-care (01) ==
LOC: HO.HOSX 07:15
PROVIDERS: Visit Provider Orthopaedic Surgery
DX: K50.90 Crohn's disease, unspecified, without complications (principal); Z13.89 Encounter for screening for other disorder
CPT/HCPCS: 72170; 99212

== ENCOUNTER 2025-06-07 14:10 | Outpatient (AMB) | payer MEDICAID, SELFPAY ==
--- NOTE | 2025-06-07 14:12 | A.OFFVIS_ITS ---
Vital Signs 06/07/25 14:13 Height 5 ft 8 in Weight 117 lb BMI 17.8 Intake Visit Reasons: REEL MAN- Avascular necrosis of femoral heads, CT done Intake Note: Juana is a 24 year old Female who presents today as a New Patient due to referral for Bilateral Hip AVN. Patient reports they are having no symptoms, however was referred due to abnormal findings in CT. Allergies peach (PEACH) Allergy (Severe, Verified 06/07/25 14:29) ITCHY THROAT pear (PEAR) Allergy (Severe, Verified 06/07/25 14:29) ITCHY THROAT plum (PLUM) Allergy (Severe, Verified 06/07/25 14:29) ITCHY THROAT apples Allergy (Mild, Uncoded 03/02/24 11:14) itchy throat seasonal Allergy (Unknown, Uncoded 03/02/24 11:14) runny nose HPI HPI REEL MAN- Avascular necrosis of femoral heads, CT done: Details: 24-year-old with Crohn's disease who was referred here has been incidental finding on a CT scan. She has no hip pain. She is only here because somebody referred her here based on the CT scan. She has taken steroids off and on for Crohn's disease. She is not currently taking medication as it is controlled with exercise and diet. [facility] Medical History Asthma Partial small bowel obstruction Crohn's disease Surgical History Hx of breast implants, bilateral Hx of appendectomy Hx of endoscopy History of colonoscopy History of colonoscopy Family History Father Alive and well Mother Alive and well Social History Household Members: Family Housing: House Alcohol intake: current Alcohol intake frequency: a few times a month Patient Tobacco Use Status: Former Tobacco user Substance Use Type: Marijuana service: No Physical Exam Vital Signs: BMI result Body Mass Index 17.8 Results Reviewed Results Reviewed: I personally reviewed relevant radiographs. CT read suggests questionable early AVN femoral heads. There is mild sclerosis in the femoral heads bilaterally with no collapse or other abnormality. AP pelvic radiographs are normal Assessment & Plan Assessment & Plan (1) Crohn's disease: Code(s): K50.90 - Crohn's disease, unspecified, without complications Category: Medical Plan: 24-year-old with Crohn's disease that is managed without medication with a question of AVN in the femoral heads. She has no pain and no collapse on radiographs or even evidence of AVN on plain radiographs. She is asymptomatic. No intervention warranted at this time. Orders: Orders XR pelvis 1-2V Today M25.559 - Pain in unspecified hip Coding Level of Care Code Est Pt Level 2 (94887) Diagnoses Crohn's disease K50.90
[2025-06-07 14:13] VITALS: BMI 17.8
== END 2025-06-07 15:16 | disposition home or self-care (01) ==
LOC: HO.HOS 14:10
PROVIDERS: PCP Family Medicine; Visit Provider Orthopaedic Surgery
DX: K50.90 Crohn's disease, unspecified, without complications (principal)
CPT/HCPCS: 99212

== ENCOUNTER → 2025-06-07 14:13 | Outpatient (BNV) | payer MEDICAID, SELFPAY | PROVIDERS: Visit Provider Radiology Diagnostic Radiology | DX: M25.559 Pain in unspecified hip (principal) | CPT/HCPCS: 72170 ==

== ENCOUNTER 2025-07-26 12:34 | Outpatient (AMB) | payer MEDICAID, SELFPAY ==
--- OUTSIDE RECORDS SUMMARY | 2025-07-24 13:00 | XMS_ITS | Encounter Summary ---
Author Organization [employer] Address [address] [place] [address] Care Team Providers Care Ironer Sock Name Role Phone [place], Ariadna PEREZ Primary Care Provider [phone]- [phone] Eileen Mcgowan MD Unavailable [phone] Mohan Benson MD Unavailable Reason for Visit * Reason Comments Injections Encounter Details Date Type Department Care Team ([facility] st Contact Info) Description 07/24/2025 1:00 PM EDT Clinical Support [facility] [address] [place] [address] Gely Willis, RN [address] [place] [address] Gender dysphoria Social History Tobacco Use Types [...] Progress Notes * Gely Willis RN - 07/24/2025 1:00 PM EDT S: Pt here for Nurse visit to receive scheduled depo estradiol injection. Pt denies any difficulties with previous injection received or any significant side effects at thistime. O: Standing order verified. 5mg/1mL administered IM on right vastus lateralis, pt tolerated well. A: Gender dysphoria P: Pt is interested on continuing with injections Pt agrees with plan of care Scheduled next injection with garrick hunt Future Appointments Date Time Provider Department Center 08/07/2025 1:00 PM [facility] GREEN TEAM NURSE MEDICINE [facility] 01/16/2026 8:00 AM Joanna Gonzalez ADLT DENT [facility] Gely Willis RN documented in this encounter Plan of Treatment Upcoming Encounters Date Type Department Care Team (Late st Contact Info) Description 08/07/2025 1:00 PM EDT Clinical Support [facility] [address] [place] [address] 01/16/2026 8:00 AM EDT Office Visit [facility] ADULT DENTAL [address] [place] [address] Joanna Gonzalez [address] [place] [address] documented as of this encounter Visit Diagnoses Diagnosis Gender dysphoria documented in this encounter Administered Medications Active Administered Medications - up to 3 most recent administrations Medication Order MAR Action Action Date Dose Rate Site estradiol cypionate (Depo-estradiol) injection 5 mg 5 mg, Intramuscular, Every 14 days, First dose on Wed09/13/23 at 1230Indications:Gender dysphoria Given 07/24/2025 1:09 PM EDT 5 mg Right Anterior Thigh Given 07/10/2025 1:47 PM EDT 5 mg Le ft Anterior Thigh Given 06/26/2025 2:34 PM EDT 5 mg Ri ght Anterior Thigh documented in this encounter Additional Health Concerns Assessment Noted Time PHQ-9 Depression Total Score: 4 05/31/20 24 11:08 AM EDT documented as of this encounter Care Teams Ironer Sock Relationship Specialty Start Date End Date Ariadna Tristan MD [address] [place] [address] PCP - General Family Medicine 07/19/19 Eileen Mcgowan MD [address] [place] [address] Gastroenterology 04/27/25 Mohan Benson MD [address] [place] [address] Orthopaedic Surgery 06/07/25 documented as of this encounter
--- NOTE | 2025-07-26 12:35 | MHC.OFFVIS ---
Vital Signs 07/26/25 12:36 Height 5 ft 8 in Weight 123 lb BMI 18.7 BP 103/70 Blood Pressure Location Lt brachial Position Sitting Pulse 75 Pulse Oximetry (%) 97 Oxygen Delivery Method Room Air Intake Visit Reasons: follow up Intake Note: Patient follow up for Crohns Disease, lab/fecal and Colonoscopy/EGD results. Patient denies any GI issues. Aids Social Worker Required: No Accompanied by: Self / Same As Patient Allergies peach (PEACH) Allergy (Severe, Verified 07/26/25 12:35) ITCHY THROAT pear (PEAR) Allergy (Severe, Verified 07/26/25 12:35) ITCHY THROAT plum (PLUM) Allergy (Severe, Verified 07/26/25 12:35) ITCHY THROAT apples Allergy (Mild, Uncoded 03/02/24 11:14) itchy throat seasonal Allergy (Unknown, Uncoded 03/02/24 11:14) runny nose Medication List - Last Reconciled 07/26/25 by Eileen Mcgowan MD albuterol sulfate 2.5 mg (3 mL) inhalation Q4-6H PRN estradiol cypionate (Depo-Estradiol) 1 mg IM Q2W medroxyprogesterone 2.5 mg PO DAILY multivitamin 1 tab PO DAILY 90 days spironolactone 100 mg PO DAILY HPI HPI follow up: Details: GI clinic visit for this 24 year old male to female gender transfer for FU of crohns disease (JUAN R). Patient has been followed by Dr. López since 2017 Pt was [place] [facility] with SBO due to Crohn's disease: HOSPITAL COURSE: She was admitted to the surgical service for further treatment of the SBO, Crohns flare. Partial small obstruction secondary to exacerbation of her Crohn's disease. There was mention of question of intussusception but it appears to be more of edema of the segment. She was continued on supportive measures and kept NPO, on IVF, PRN analgesics and antiemetics, GI consult for Crohns flare. GI recommended solumedrol 20 mg q8 hr for 48 hrs then transition to short course of PO prednisone and IV flagyl and cipro due to anti inflammatory action and reducing risk of bacterial translocation, and this was initiated. She had improvement in her symptoms and resolution of her abdominal pain and return of GI function. Her diet was advanced as tolerated. On the day of discharge, she was tolerating solid diet without nausea, vomiting or worsening abd pain. She had good GI function. Her abdomen was benign and she was hemodynamically stable. She was discharged to home on 12/08/24 in stable condition. She was discharged on a course of oral prednisone and flagyl/cipro. She is to follow up with Dr Mcgowan for biologic treatment. IBD SUMMARY YEAR OF DIAGNOSIS: 2017 - abd pain, poor appetite, diarrhea, wt loss DISEASE EXTENT/LAST COLONOSCOPY FINDINGS:? 2019 at [facility]. EGD,colonoscopy with chronic gastritis and granuloma, TI with ileitis and erosions, colon with scatered lamina granulomas NEXT COLON DUE: 2023 EXTRAINTESTINAL MANIFESTATIONS: Feels itchy starting Humira/mild hives. denies jt pains, vision is not good - sees dots every where. GI SURGERY:? Appendectomy in 2013 PAST TREATMENTS:? Remicade - stopped since she did not want to come to the hospital Humira 40 mg every 2 weeks since 09/2020 and discontinued on her own Prednisone taper in the past. CURRENT THERAPY:? None - pt was on Humira and stopped several months ago due to a skin rash VACCINATIONS: Hep A/B serology /vaccination:? refuses Hep B vaccination, unsure if got it when younger TB screen:? Negative Nov, 2024 TODAY'S VISIT: Patient denies any GI issues for today visit. Moved to [place] and returned after a month since she didnt like it there Hospitalized with SBO - since I was eating a little crazy - was eating sugary foods and late at night Feels better - watching what she is eating. Denies abd pain, diarrhea or constipation. Has a BM daily without any blood in the stool. Denies recent change in wt or appetite - lost a few lbs attributes it to going to the Gym Stopped taking Humira since she was getting a rash. Does not want to start any treatment Had breast augmentation and facial feminization (mandible contouring and shaving of marlow apple by a plastic surgeon in [place] (Dr Gill) - on 12/08/22. ([facility] [phone]) Was off the Humira for a month. Had a self limited flare 3 weeks ago which has resolved. Having 2-3 BMs a day - had diarrhea which has resolved. On a strict diet - no meat or dairy otherwise he would have a flare up. Patient reports his anal fissure has resolved. Moving to [facility] this weekend and plans to establish with a GI physician in [place] PAST VISIT: Has been doing pretty good Having breast augmentation and facial feminization (mandible contouring and shaving of marlow apple by a plastic surgeon in [place] (Dr Gill) - scheduled on 12/08/22. ([facility] [phone]) Pt was advised to stop all medications for a month Last dose of Humira was 11/07/23. Lab results reviewed with the patient. Has been gaining weight Abd pain and bloating has been OK. Denies recent dizziness Has 2-3 non-bloody BMs in a day - vary between soft to hard. Last Humira injection was 06/07/22 - next injection due on 06/21/22 Also taking estrogens. Denies abdominal pain. Appetite is good and thinks she is under weight. Has been smoking weed a lot - which helps her eat. Unable to eat if she does not take weed - takes 2-3 times a day. Patient denies symptoms of heartburn, dysphagia, nausea, vomiting, change in appetite or weight.? Admits to getting acid reflux usually at night and does not take any medication for it. Has a BM 2 times a day - varies between soft to runny - with mucous and just a little bit of blood intermittently - ? once a week. Patient denies major cardiac or pulmonary problems, loud snoring or sleep apnea Denies problems with anesthesia in the past. Denies being on chronic anticoagulation - Denies taking Ibuprofen recently. Denies smoking tobacco. Patient denies known family history of IBD, colon polyps, colon cancer or other GI malignancies. Several family members with stomach issues - GM, Mom and sister has IBS, PAST GI HISTORY BY REVIEW OF MEDICAL RECORDS: Pt was last seen by Dr López in 02/2021: 20 yr old male to female gender transfer with crohns disease called for f/u (JUAN R) RECAP: Dx with crohns 2016--EGD,colonoscopy with chronic gastritis and granuloma, TI with ileitis and erosions, colon with scatered lamina granulomas She was then commenced on remicade 2018 due to worsening sx she was on consistently for a while then started and stopped, last dose 2-3 months ago (didn;t like the idea of coming to hospital for infusions) since then not doing so good main sx, with cramps, diarrhea every morning, goes to toilet 3-4 times a day no blood in stools weight is going down mild nausea, no vomiting on vegetarian diet smokes THC, but not nicotine no alcohol use she went to the ED and d/c with pain med and short course of steroids Due to above sx changed to humira and had labs checked 08/2020--CRP : 9, WCC nml, mild anemia, nutrients were ok rept labs 11/2009--CRP 1.3, hgb improved TB spot neg HM--refuses Hep B vaccination, unsure if got it when younger INTERIM: feeling back to normal minimal pain toilet few times a day, no blood in stool appetite is good otherwise no joint swelling or pain no skin rashes no hx of uveitis been taking humira, compliant with it tolerating well, no Se from medication 1/ Crohns disease of large and small bowel, active disease after stopping remicade, CT with ileal thickening and lymphadenoapthy, now improved clinically with humira, CRP coming down nicely but need updated labs, still not went from last time PLAN: 1/ Cont with humira, 2/ recheck labs as originally planned catherine CRP, WCC make sure CRP has normalized 3/ has refused hep B vaccine IMAGING STUDIES:? 12/06/[address] SCAN SHOWED: Consider acute Crohn's disease with questionable intussusception, ileocecal resulting in partial/incomplete distal small bowel obstruction. 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 08/[address] SCAN SHOWED: Consistent with the provided history of Crohn's disease, there is wall thickening of the terminal ileum and of a mid small bowel loop within the right abdomen. A nonobstructing small bowel intussusception associated with this focal mid small bowel wall thickening. No obstruction, ileus, abscess or free intraperitoneal air is seen. There are shotty, nonpathologically enlarged mesenteric lymph nodes. A small amount of free fluid is seen within the dependent pelvis [facility] Medical History Asthma Partial small bowel obstruction Crohn's disease Surgical History History of esophagogastroduodenoscopy (EGD) Hx of breast implants, bilateral Hx of appendectomy Hx of endoscopy History of colonoscopy History of colonoscopy Family History Father Alive and well Mother Alive and well Social History Household Members: Family Housing: House Alcohol intake: current Alcohol intake frequency: a few times a month Patient Tobacco Use Status: Former Tobacco user Substance Use Type: Marijuana service: No Review of Systems Const All systems reviewed & are unremarkable except as noted in HPI and below ENT Reports Normal hearing present Neuro Reports Normal hearing present and Denies Abnormal speech present Physical Exam Vital Signs: Last Vital Signs Pulse 75 07/26/25 12:36 BP 103/70 07/26/25 12:36 Pulse Ox 97 07/26/25 12:36 Oxygen Delivery Method Room Air 07/26/25 12:36 BMI result Body Mass Index 18.7 Const General: healthy appearing and no acute distress Nutritional Appearance: underweight Orientation/consciousness: patient oriented x3 Limitations: no limitations HEENT Head: Yes normal to inspection Ears: hearing grossly normal bilaterally Eyes Sclerae: sclerae normal Pupils: Equal, round and reactive pupils present Neck Neck: Yes normal visual inspection Chest Chest palpation & inspection: normal inspection of the chest Resp Effort & Inspection: normal respiratory effort Auscultation: clear to auscultation bilaterally Cardio Palpation: normal PMI Rate: regular rate Rhythm: regular rhythm Heart sounds: S1 normal heart sound present, S2 normal heart sound present and no murmurs GI Palpation (GI): Soft to palpation, nontender and No hepatosplenomegaly present Auscultation: normal bowel sounds Rectal Exam - Male: Yes deferred Skin General skin exam: no rashes or lesions noted Neuro General: patient oriented x3, gait normal and moves all extremities Cranial nerves: Yes Equal, round and reactive pupils present and Yes Normal hearing present Speech: No Abnormal speech present Psych Appearance: grossly normal Mental Status: mental status grossly normal Assessment & Plan Assessment & Plan (1) GERD (gastroesophageal reflux disease): Code(s): K21.9 - Gastro-esophageal reflux disease without esophagitis Category: Medical (2) Anal fissure: Code(s): K60.2 - Anal fissure, unspecified Category: Medical (3) Crohn's disease: Code(s): K50.90 - Crohn's disease, unspecified, without complications Category: Medical Plan JUAN R is a 24 year old male to female gender transfer for FU of ileo-colonic crohns disease diagnosed in 2016. Pt switched from Remicade to Humira (did not want to come in for infusions) in 09/2020 She did have low level antibodies previously at [facility] for remicade (given he stopped and started it a few times), CT scan showed ileal thickening and lymphadenoapthy Patient refuses vaccines due to health beliefs Nausea and decreased appetite likely due to estrogen. Normal CRP and pt was advised to check fecal calprotectin Humira levels was 9.6 (therpeutic trough level > 7.5 and antibodies were < 10 (negative) Continue Humira every 2 weeks and may need to switch to weekly dosing if fecal calprotectin is elevated ? Continue famotidine 20 mg at bedtime for heartburn. Preparation H for hemorrhoids (since 2.5% hydrocortisone cream not covered by her insurance) 04/26/25 Pt was hospitalized in November 2024 with small-bowel obstruction. Responded to IV steroids and discharged on prednisone taper and p.o. antibiotics Patient denies abdominal pain, diarrhea, constipation or rectal bleeding She does not want to resume treatment for Crohn's disease at present Agreeable to scheduling an upper endoscopy and colonoscopy - request sent to GI hand frame surgical elastic knitter. 05/28/25 EGD AND COLON SHOWED: Endoscopy Findings: ESOPHAGUS: Normal STOMACH: A few 2-3 mm superficial ulcers in the antrum. DUODENUM: Scattered 3-4 mm chronic appearing ulcers in the bulb and descending duodenum Colonoscopy Findings: One small polyps was removed Deformed appearance of the cecum and ICV with edema, erythema, friable mucosa with ulcerations with exudate - biopsies were obtained. Edema, erythema, friable mucosa without ulcerations in the transverse and left colon. Plan: Repeat Colonoscopy in 2 years for FU of Crohn's disesase. A summary of above findings and relevant handouts were given to the patient. Pt was advised to resume treatment for Crohn's disease ( switch to risankizumab -Skyrizi) since she complains of skin rash after taking Humira BIOPSIES SHOWED: A. Small bowel, ulcer, biopsy: Focal active enteritis with associated submucosal granulation tissue; preserved villous architecture and no increased intraepithelial lymphocytes seen. B. Stomach, antrum, biopsy: Gastric antral mucosa with moderate chronic inactive gastritis; negative for Helicobacter pylori, intestinal metaplasia and dysplasia. C. Stomach, body, biopsy: Gastric body mucosa within normal limits; negative for Helicobacter pylori, intestinal metaplasia and dysplasia. D. Colon, cecum, biopsy: Colonic mucosa with a single mucosal granuloma; negative for active, chronic or microscopic colitis. E. Colon, ascending, biopsy: Active colitis, patchy, with mild activity. F. Colon, transverse, biopsy: Colonic mucosa within normal limits; negative for active, chronic or microscopic colitis. G. Colon, left side, biopsy: Colonic mucosa within normal limits; negative for active, chronic or microscopic colitis. H. Rectum, polypectomy: Hyperplastic polyp and incidental mucosal granuloma. I. Rectum, biopsy: Active colitis with mild activity and surface erosion. COMMENT: No dysplasia seen in any of the biopsies. Patient placed on the colonoscopy recall list for repeat colonoscopy in 2 years. 07/26/25 EGD and colon results were reviewed. Pt advised to start Skyrizi for Crohn's disease. Induction:?IV:?600 mg at weeks 0, 4, and 8. Maintenance:?SUBQ:?Prefilled cartridge: 180 to 360 mg at week 12 and every 8 weeks thereafter; use lowest effective dosage to maintain therapeutic response. Risk and side effects were reviewed. Follow-up in 4 months - scheduled 11/29/24 Orders: Orders Hepatitis B Surface Antibody 07/26/25 K50.90 - Crohn's disease, unspecified, without complications Hepatitis B Core Antibody 07/26/25 K50.90 - Crohn's disease, unspecified, without complications Hepatitis A IgG 07/26/25 K50.90 - Crohn's disease, unspecified, without complications Complete Blood Count Auto Diff 07/26/25 K50.90 - Crohn's disease, unspecified, without complications Hepatitis B Surface Antigen 07/26/25 K50.90 - Crohn's disease, unspecified, without complications Coding Level of Care Code Est Pt Level 4 (46203) Diagnoses GERD (gastroesophageal reflux disease) K21.9 Anal fissure K60.2 Crohn's disease K50.90 Time Spent (min) 20
[2025-07-26 12:36] VITALS: BP 103/70; PULSE 75; O2SAT 97; BMI 18.7
--- OUTSIDE RECORDS SUMMARY | 2025-07-26 14:40 | XMS_ITS | Encounter Summary ---
Author Organization [employer] Address [address] 7 [place] [address] Care Team Providers Care Clinical Rehab Specialist Name Role Phone Ariadna Tristan MD Primary Care Provider [phone] Eileen Mcgowan MD Unavailable Mohan Benson MD Unavailable Encounter Details Date Type Department Care Team (Late st Contact Info) Description 05/28/2023 Abstract [facility] [address] [place] [address] Ariadna Tristna MD [address] [place] [address] Social History Tobacco Use Types Packs/Day Years [...] Description 08/07/2025 1:00 PM EDT Clinical Support [facility] [address] [place] [address] 01/16/2026 8:00 AM EDT Office Visit [facility] [address] [place] [address] Joanna Gonzalez [address] [place] [address] documented as of this encounter Visit Diagnoses Not on filedocumented in this encounter Care Teams Clinical Rehab Specialist Relationship Specialty Start Date End Date Ariadna Tristan MD [address] [place] [address] PCP - General Family Medicine 07/19/19 Eileen Mcgowan MD [address] [place] [address] Gastroenterology 04/27/25 Mohan Benson MD [address] [place] [address] Orthopaedic Surgery 06/07/25 documented as of this encounter
--- OUTSIDE RECORDS SUMMARY | 2025-07-26 14:40 | XMS_ITS | Encounter Summary ---
Author Organization [employer] Address [address] [facility] [address] 7 [place] [address] Care Team Providers Care Barrel Driller Name Role Phone Ariadna Tristan MD Primary Care Provider [phone] Eileen Mcgowan MD Unavailable [phone] Mohan Benson MD Unavailable Reason for Visit * Reason Onset Date Comments Med Refill 06/21/2025 Encounter Details Date Type Department Care Team (Late st Contact Info) Description 06/21/2025 Refill [facility] [address] [place] [address] Ariadna Tristan MD [address] [place] [address] Gender dysphoria Social History Tobacco Use Types [...] Description 08/07/2025 1:00 PM EDT Clinical Support [facility] [address] [place] [address] 01/16/2026 8:00 AM EDT Office Visit [facility] [address] [place] [address] LisaJoanna [address] [place] [address] documented as of this encounter Visit Diagnoses Diagnosis Gender dysphoria documented in this encounter Additional Health Concerns Assessment Noted Time PHQ-9 Depression Total Score: 4 05/31/20 24 11:08 AM EDT documented as of this encounter Care Teams Barrel Driller Relationship Specialty Start Date End Date Ariadna Tristan MD [address] [place] [address] PCP - General Family Medicine 07/19/19 Eileen Mcgowan MD [address] [place] [address] Gastroenterology 04/27/25 Mohan Benson MD [address] [place] [address] Orthopaedic Surgery 06/07/25 documented as of this encounter
--- OUTSIDE RECORDS SUMMARY | 2025-07-26 14:40 | XMS_ITS | Encounter Summary ---
Author Organization [employer] Address [address] [place] [address] Care Team Providers Care Restaurant Supervisor Name Role Phone Azalea, Ariadna PEREZ Primary Care Provider [phone]- [phone] Eileen Mcgowan MD Unavailable [phone] Mohan Benson MD Unavailable Encounter Details Date Type Department Care Team (Latest Contact Info) Description 07/24/2025 Travel Social History Tobacco Use Types Packs/Day [...] Description 08/07/2025 1:00 PM EDT Clinical Support [facility] [address] [place] [address] 01/16/2026 8:00 AM EDT Office Visit [facility] [address] [place] [address] Lisa, Joanna [address] [place] [address] documented as of this encounter Visit Diagnoses Not on filedocumented in this encounter Additional Health Concerns Assessment Noted Time PHQ-9 Depression Total Score: 4 05/31/20 24 11:08 AM EDT documented as of this encounter Care Teams Restaurant Supervisor Relationship Specialty Start Date End Date Ariadna Tristan MD [address] [place] [address] PCP - General Family Medicine 07/19/19 Eileen Mcgowan MD [address] [place] [address] Gastroenterology 04/27/25 Mohan Benson MD [address] [place] [address] Orthopaedic Surgery 06/07/25 documented as of this encounter
--- OUTSIDE RECORDS SUMMARY | 2025-07-26 14:40 | XMS_ITS | Clinical Summary ---
Author Organization [facility] Address [address] [place] [address] Care Team Providers Care Pastoral Assistant Name Role Phone Ariadna Tristan Primary Care Provider [phone] Allergies No known active allergies Medications estradioL [...] Date Last Done Comments HIV Screening 2000 Varicella Vaccines (1 of 2 - 13+ 2-dose series) 2013 HPV Vaccines (1 - 3-dose series) 2015 Hepatitis B Vaccines (1 of 3 - 19+ 3-dose series) 2019 DTaP,Tdap,and Td Vaccines (1 - Tdap) 2022 Alcohol/Substance Use Screening 11/08/2024 COVID-19 Vaccine (1 - 2023-2 5 season) 2025 Influenza Vaccine (#1) 2025 RSV Vaccine (60+ years old a nd patients) (1 - 1-dose 75+ series) 2075 Pneumococcal Vaccine: Pediat noah (0-5 Years) and At-Risk Patients (6-50 Years) Aged Out No longer eligible b ased on patient's age to complete this topic Insurance [employer] Care Teams Pastoral Assistant Relationship Specialty Start Date End Date Azalea, Ariadna Jarvis [address] [place] [address] [phone] PCP - General Family Medicine 02/07/21
--- OUTSIDE RECORDS SUMMARY | 2025-07-26 14:40 | XMS_ITS | Encounter Summary ---
Author Organization [facility] Address [address] [place] [address] Phone Care Team Providers Care Hoop Bending Machine Operator Name Role Phone Ariadna Tristan MD Primary Care [facility] Encounter Details Date Type Department Care Team (Late st Contact Info) Description 08/14/2022 Telephone [facility] [address] [place] [address] Ariadna Tristan MD [address] [place] [address] Social History Tobacco Use Types Packs/Day Years [...] Start Date Job End Date Student at [employer] Not on file Not on file Not on file documented as of this encounter Plan of Treatment Not on file documented as of this encounter Visit Diagnoses Not on filedocumented in this encounter Care Teams Hoop Bending Machine Operator Relationship Specialty Start Date End Date Ariadna Tristan MD [address] [place] [address] PCP - General Family Medicine 04/29/22 Cristy Prather Meta Psychologist 05/31/19 documented as of this encounter Additional Source Comments The information contained in this document represents components of the legal health record. It is not the complete legal health record.[facility]
--- OUTSIDE RECORDS SUMMARY | 2025-07-26 14:40 | XMS_ITS | Encounter Summary ---
Author Organization [employer] Address [address] [facility] [address] [place] [address] Care Team Providers Care Day Treatment Clinician/Art Therapist Name Role Phone Ariadna Tristan MD Primary Care Provider [phone] Eileen Mcgowan MD Unavailable [phone] Mohan Benson MD Unavailable Encounter Details Date Type Department Care Team (Late st Contact Info) Description 04/16/2025 Orders Only [facility] [address] [place] [address] Ariadna Tristan MD [address] [place] [address] Gender dysphoria (Primary Dx) Social History Tobacco Use Types Packs/Day Years [...] Description 08/07/2025 1:00 PM EDT Clinical Support [facility] [address] [place] [address] 01/16/2026 8:00 AM EDT Office Visit [facility] [address] [place] [address] Lisa Joanna [address] [place] [address] Scheduled Orders Name Type Priority Associated Diagnoses Orde r Schedule Hepatic Function Panel Lab Routine Gender dysphoria Expected: 04/16/2025 (Approximate), Expires: 04/16/2026 Basic Metabolic Panel Lab Routine Gender dysphoria Expected: 04/16/2025 (Approximate), Expires: 04/16/2026 documented as of this encounter Procedures Procedure Name Priority Date/Time Associated Diagnosis Comments ESTRADIOL Routine 05/03/2025 12:13 PM EDT Gender dysphoria TESTOSTERONE, TOTAL, MALES (ADULT), IA Routine 05/03/2025 12:13 PM EDT Gender dysphoria documented in this encounter Results * (ABNORMAL) Estradiol (05/03/2025 12:13 PM EDT) Estradiol Ultra Sensitive 228(A) < OR = 29 pg/mL [facility] Comment:This test was develo ped and its analytical performancecharacteristics have been determined by [employer].It has not been cleared or approved by the FDA. This assayhas been validated pursuant to the CLIA regulations and isused for clinical purposes.THIS TEST WAS PERFORMED AT:[employer] [id number] [place] [address]CLTHTLE SCHROEDER MD,PHD,LUNA Blood Venous blood specimen / Unknown 05/03/2025 12:13 PM EDT 05/03/2025 12:13 PM EDT us Ariadna Tristan MD LAB BLOOD ORDERABLES Final Result [facility] [address] [place] [address] [phone] * (ABNORMAL) Testosterone, Total, males (Adult), IA (05/03/2025 12:13 PM EDT) Testosterone, Total 32(A) 250 - 1100 ng/dL [facility] Comment:For additional infor mation, please refer tohttp://education.Omnikles.KeepRecipes/faq/JmkacTkhjnibzzmjhUMJDIVIUZ297(This link is being provided for informational/educational purposes only.)This test was developed and its analytical performancecharacteristics have been determined by [employer] [place], [place]. It hasnot been cleared or approved by the U.S. Food and DrugAdministration. This assay has been validated pursuantto the CLIA regulations and is used for clinicalpurposes.THIS TEST WAS PERFORMED AT:[employer] [id number] [place] [address]LJXHUBKADITYA CHAVEZ MD,PHD Blood Venous blood specimen / Unknown 05/03/2025 12:13 PM EDT 05/03/2025 12:13 PM EDT Ariadna Tristan MD LAB BLOOD ORDERABLES Final Result [facility] [address] [place] [address] [phone] documented in this encounter Visit Diagnoses Diagnosis Gender dysphoria- Primary documented in this encounter Additional Health Concerns Assessment Noted Time PHQ-9 Depression Total Score: 4 05/31/20 24 11:08 AM EDT documented as of this encounter Care Teams Day Treatment Clinician/Art Therapist Relationship Specialty Start Date End Date Ariadna Tristan MD [address] [place] [address] PCP - General Family Medicine 07/19/19 Eileen Mcgowan MD [address] [place] [address] Gastroenterology 04/27/25 Mohan Benson MD [address] [place] [address] Orthopaedic Surgery 06/07/25 documented as of this encounter
--- OUTSIDE RECORDS SUMMARY | 2025-07-26 14:40 | XMS_ITS | Encounter Summary ---
Author Organization [facility] Address [address] [place] [phone] Phone Care Team Providers Care Product Design Manager Name Role Phone Ariadna Tristan MD Primary Care [facility] Encounter Details Date Type Department Care Team (Late st Contact Info) Description 2023 Procedure Pass [facility], [facility] Scan - [address] [address] Social History Tobacco Use Types Packs/Day Years Used Date Smoking Tobacco: Former Smokeless Tobacco: Never Alcohol Use Standard Drinks/Week Comments No 0 (1 standard drink = 0.6 oz pur e alcohol) Education Answer Date Recorded Are you interested in more education? Not on annalise e 03/05/2023 Are you concerned about learning? Not on file 03/05/2023 No 03/05/2023 No 03/05/2023 Digital Access Answer Date Recorded No 04/04/2023 No 04/04/2023 No 04/04/2023 Reliable internet access at home? Not on file 04/04/2023 Device with a working camera? Not on file Intimate Partner Violence Answer Date R ecorded Are you denied basic needs s uch as food, clothing, or medical care? No 11/08/2023 In the past 12 months have y ou been in a relationship with a person who hurts, threatens, or tries to control you? No 11/08/2023 Are you denied basic needs s uch as food, clothing, or medical care? No 11/08/2023 In the past 12 months have y ou been in a relationship with a person who hurts, threatens, or tries to control you? No 11/08/2023 Sex and Gender Information Value Date Recorded Sex Assigned at Male 08/28/2019 10:10 PM EDT Legal Sex Male 8:37 AM EDT Gender Identity Female 04/24/2022 3:33 PM EDT Sexual Orientation Don't know 08/28/2019 10 :11 PM EDT Occupation Industry Job Start Date Job End Date Student at [employer] Not on file Not on file Not on file documented as of this encounter Functional Status * Calculated C-SSRS Risk Score (Lifetime/Recent) Answer Date of Assessment Author No Risk Indicated 11/08/2023 2:00 AM Sejal Hernandez RN * [place] Suicide Severity Rating Scale (Screener/Recent Self-Report) Question Answer Date of Assessment Author 1. Wish to be (Past 1 Month) No 024 2:00 AM Anaid Hernandez RN 2. Non-Specific Active Suici alexander Thoughts (Past 1 Month) No 11/08/2023 2:00 AM Anaid Hernandez RN 6. Suicidal Behavior (Lifetime) No 4 2:00 AM Anaid Hernandez RN documented as of this encounter Plan of Treatment Not on file documented as of this encounter Visit Diagnoses Not on filedocumented in this encounter Care Teams Product Design Manager Relationship Specialty Start Date End Date Ariadna Tristan MD [address] [place] [id number] PCP - General Family Medicine 04/29/22 Cristy [facility] Psychologist 05/31/19 documented as of this encounter Additional Source Comments The information contained in this document represents components of the legal health record. It is not the complete legal health record.[facility]
--- OUTSIDE RECORDS SUMMARY | 2025-07-26 14:40 | XMS_ITS | Encounter Summary ---
Author Organization [facility] Address [address] [place] [phone] Phone Care Team Providers Care Bobbin Stripper Name Role Phone Yola Sharp MD Primary Care Provider [phone] Yola Sharp MD Unavailable [phone] [place] n[place] MD Primary Care [facility] [place] nelson MD Primary Care [facility] Encounter Details Date Type Department Care Team (Late st Contact Info) Description 02/11/2018 Procedure Pass [place] Admitting Dept - Virtual Department [address] [place] [address] [phone] Social History Tobacco Use Types Packs/Day Years [...] Don't know 08/28/2019 10 :11 PM EDT documented as of this encounter Plan of Treatment Not on file documented as of this encounter Visit Diagnoses Not on filedocumented in this encounter Care Teams Bobbin Stripper Relationship Specialty Start Date End Date Yola Sharp MD [address] [place] [address] PCP - General 08/24/17 08/27/19 Ariadna Tristan MD [address] [place] [address] PCP - General Family Medicine 08/28/19 04/28/22 Ariadna Tristan MD [address] [place] [address] PCP - General Family Medicine 04/29/22 Yola Sharp MD [address] [place] [address] 08/24/17 08/27/19 Cristy [facility] Psychologist 05/31/19 documented as of this encounter Additional Source Comments The information contained in this document represents components of the legal health record. It is not the complete legal health record.[facility]
--- OUTSIDE RECORDS SUMMARY | 2025-07-26 14:40 | XMS_ITS | Clinical Summary ---
Author Organization [employer] Address [address] [place] [address] 7 [place] [address] Care Team Providers Care Chief Client Officer Name Role Phone Ariadna Tristan MD Primary Care Provider [phone] Eileen Mcgowan MD Unavailable Mohan Benson MD Unavailable Allergies Active Allergy Reactions Criticality Noted Date Comments Apple Juice 05/05/2023 Morales-Sanchez Pulp 05/05/2023 Prunus Persica 05/05/2023 Octacosanol 05/05/2023 Medications spironolactone (Aldactone) 100 MG tabletIndicatio ns:Gender dysphoria Take 1 tablet (100 mg) by mouth Once per day. 90 tablet 3 04/16/20 25 Active medroxyPROGESTE Parth (Provera) 2.5 MG tabletIndicatio ns:Gender dysphoria Take 1 tablet (2.5 mg) by mouth at bedtime. 30 tablet 11 05/23/20 25 026 Active amoxicillin (Amoxil) 500 MG capsuleIndicati ons:Pharyngitis , unspecified etiology Take 1 tab po bid for 10 days 20 capsule 06/14/20 25 Active estradiol cypionate (Depo-Estradiol ) 5 MG/ML injectionIndica tions:Gender dysphoria INJECT 1 ML INTRAMUSCULARLY EVERY 2 WEEKS 5 mL 11 06/21/20 25 Active Hospital, Clinic, or Other Facility Administered Medication Ordered Dose Route Frequency Start Date End Date Status estradiol cypionate (Depo-estradiol) injection 5 mgIndications:Gender dysphoria 5 mg IM Every 14 days 09/13/2023 Active Active Problems Problem Noted Date Diagnosed Date Avascular necrosis 12/07/2024 Overview (06/07/2025): -CT 12/07/24 in ER reveals possible avascular necrosis of femoral heads. Pt denies symptoms -seen by Dr. Benson 05/2025 Asymptomatic. No intervention warranted at this time. Positive depression screening 05/31/2024 Overview (05/31/2024): Denies [...] annual evaluation due after 11/23/25 -referred to [facility] -do not have a dental home, encouraged to get established -health care proxy filed 05/31/24 Assessment & Plan (11/23/2024 10:32 AM EST): -next comprehensive annual evaluation due after 11/23/25 -referred to [facility] -do not have a dental home, encouraged to get established -health care proxy filed 05/31/24 Assessment & Plan (05/31/2024 10:49 AM EDT): -next physical exam due after 09/13/2024 -referred to [facility] -do not have a dental home, encouraged to get established -health care proxy filed 05/31/24 Assessment & Plan (09/13/2023 11:18 AM EST): -next physical exam due after 09/13/2024 -eye care facilitated by -dental home is Sexually transmitted disease counseling 03/12/20 23 Overview (03/12/2023): Condoms given Declined PrEP Pt [...] with oral PPI. Gender dysphoria 03/18/2021 Overview (05/23/2025): Her pronouns are she/her. Given family history [...] 12/08/[address] Vora. -Increased estradiol cypioinate to 1ml every 2 weeks 09/13/2023 -restart spironolactone at 100mg daily 03/12/2023 -progesterone 2.5 mg at bedtime started 05/23/25 due to pt preference and shared decision making. Pt cleared with GI first. Lab Results Component Value Date/Time ESTADIOLUS 228 (A) 05/03/20251212 TESTTOTAL 32 (A) 05/03/20251212 TRIG 82 03/12/2023 1039 AST 24 12/06/2024 0745 ALT 8 12/06/2024 0745 ALT 9 04/20/2022 1028 K 3.6 02/26/2025 0858 BUN 9 02/26/2025 0858 BUN 16 04/17/2022 0916 BUN 16 04/17/2022 0916 CREATININE 0.92 02/26/2025 0858 CREATININE 0.81 04/17/2022 0916 CREATININE 0.81 04/17/2022 0916 Assessment & Plan (05/23/2025 10:28 AM EDT): Her pronouns are she/her. Given [...] 12/08/[address] Vora. -Increased estradiol cypioinate to 1ml every 2 weeks 09/13/2023 -restart spironolactone at 100mg daily 03/12/2023 -progesterone 2.5 mg at bedtime started 05/23/25 due to pt preference and shared decision making. Pt cleared with GI first. Lab Results Component Value Date/Time ESTADIOLUS 228 (A) 05/03/20251212 TESTTOTAL 32 (A) 05/03/2025 1213 TRIG 82 03/12/2023 1039 AST 24 12/06/2024 0745 ALT 8 12/06/2024 0745 ALT 9 04/20/2022 1028 K 3.6 02/26/2025 0858 BUN 9 02/26/2025 0858 BUN 16 04/17/2022 0916 BUN 16 04/17/2022 0916 CREATININE 0.92 02/26/2025 0858 CREATININE 0.81 04/17/2022 0916 CREATININE 0.81 04/17/2022 0916 Orders: medroxyPROGESTERone (Provera) 2.5 MG tablet; Take 1 tablet (2.5 mg) by mouth at bedtime. Assessment & Plan (11/23/2024 10:43 AM EST): [...] colon, with intestinal obstru ction 07/03/2018 Overview (06/11/2025): Pt has ileocolonic Crohn's disease diagnosed in 2017 with malnutrition on estrogen therapy -Switched from Remicade to Humira (did not want to come in for infusions) in 09/2020 -low level antibodies previously at [facility] for remicade (given he stopped and started it a few times) -admitted 11/08/23 to [facility] for small bowel obstruction , Crohn's disease of both small and large intestine with intestinal obstruction -flair in ER 12/07/24 CT/CT abdomen pelvis w IV con IMPRESSION: Consider acute Crohn's disease with questionable intussusception, ileocecal resulting in partial/incomplete distal small bowel obstruction. 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 -she left the area and had difficulty with establishing regularly with GI but is now back with GI -note form Dr. Juan M LOERA of CT scan showed ileal thickening and lymphadenoapthy. Patient refuses vaccines due to health beliefs. Nausea and decreased appetite likely due to estrogen. -normal CRP and pt was advised to check fecal calprotectin - Humira levels was 9.6 (therpeutic trough level > 7.5 and antibodies were < 10 (negative) - Continue Humira every 2 weeks and may need to switch to weekly dosing if fecal calprotectin is elevated -Continue famotidine 20 mg at bedtime for heartburn. -Preparation H for hemorrhoids (since 2.5% hydrocortisone cream not covered by her insurance) -note from Dr. Mcgowan 04/26/25 She does not want to resume treatment for Crohn's disease at present Agreeable to scheduling an upper endoscopy and colonoscopy - request sent to GI surgical pathologist. -06/09/25 EGD and colonoscopy Scattered 3-4 mm chronic appearing ulcers in the bulb and descending duodenum 06/09/25 risankizumab -Evelynyrizi) since she complains of skin rash after taking Humira Assessment & Plan (11/23/2024 10:29 AM EST): Pt has ileocolonic Crohn's disease, 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 López in [place] an started on Humira with improved symptoms. She left the state and was off medications and would like a referral to GI at [facility]. Symptoms currently controlled off medication. -referral to [facility] 03/12/2023 -Pt would like to go back to Dr. Nelson, she had left the area. Referral placed -Admitted 11/08/23 to [facility] for small bowel obstruction , Crohn's disease of both small and large intestine with intestinal obstruction -denies being on Humira currently, Crohn's well controlled 05/31/24. Not following with specialist, but will call [facility] to schedule with new specialist. -re-referred to GI 11/23/24 Assessment & Plan (05/31/2024 10:44 AM EDT): Pt has ileocolonic Crohn's disease, 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 López in [place] an started on Humira with improved symptoms. She left the state and was off medications and would like a referral to GI at [facility]. Symptoms currently controlled off medication. -referral to [facility] 03/12/2023 -Pt would like to go back to Dr. Nelson, she had left the area. Referral placed -Admitted 11/08/23 to [facility] for small bowel obstruction , Crohn's disease of both small and large intestine with intestinal obstruction -denies being on Humira currently, Crohn's well controlled 05/31/24. Not following with specialist, but will call [facility] to schedule with new specialist. Assessment [...] symptoms, got established with Dr. López in [place] an started on Humira with improved symptoms. She left the state and was off medications and would like a referral to GI at [facility]. Symptoms currently controlled off medication. -referral to [facility] 03/12/2023 -Pt would like to go [...] symptoms, got established with Dr. López in [place] an started on Humira with improved symptoms. She left the state and was off medications and would like a referral to GI at [facility]. Symptoms currently controlled off medication. -referral to [facility] 03/12/2023 Protein-calorie malnutrition 03/24/2018 Assessment & [...] Encounters Date Type Department Care Team Description 07/24/2025 1:00 PM EDT Clinical Support [facility] [address] [place] [phone] Gely Willis RN Gender dysphoria 07/24/2025 Travel 07/12/2025 1:30 PM EDT Office Visit [facility] [address] [place] [phone] Dashawn Vicente DMD 07/10/2025 1:00 PM EDT Clinical Support [address] [address] Gely Willis RN Gender dysphoria 07/10/2025 Travel 06/27/2025 Patient Outreach [facility] [address] [place] [phone] Ariadna Tristan MD Care Management (C3- f/u call #2 lvm) 06/26/2025 2:30 PM EDT Clinical Support [address] [address] Gely Willis RN Gender dysphoria 06/26/2025 Travel 06/21/[address] [address] Ariadna Tristan MD Gender dysphoria 06/21/[address] [address] Ariadna Tristan MD Gender dysphoria 06/20/2025 Orders Only [address] [address] Yvrose Tolentino RN 06/18/2025 Patient Outreach [address] [address] Ariadna Tristan MD Care Management (C3CM- f/u call. Not available.) 06/14/2025 11:00 AM EDT Office Visit [facility] [address] [address] Ariadna Tristan MD Pharyngitis, unspecified etiology (Primary Dx); Sore throat 06/14/2025 Travel 06/12/2025 2:30 PM EDT Clinical Support [address] [address] Gely Willis RN Gender dysphoria 06/12/2025 Travel 06/06/2025 Patient Outreach [address] [address] Ariadna Tristan MD Care Management (C3- f/u call) 05/29/2025 2:30 PM EDT Clinical Support [address] [address] Gely Willis RN Gender dysphoria 05/29/2025 Travel 05/28/2025 Orders Only GENERIC EXTERNAL DATA DEPARTMENT Provider, Generic External Data 05/23/2025 10:15 AM EDT Telemedicine [address] [address] Ariadna Tristan MD Gender dysphoria (Primary Dx) 05/23/2025 Patient Outreach [address] [address] Ariadna Tristan MD Care Management (C3CM- f/u call) 05/23/2025 Patient Outreach [address] [address] Ariadna Tristan MD Care Coordination (CHW chart review) 05/23/[address] [address] Ariadna Tristan MD Appointment Request 05/23/2025 Travel 05/14/2025 1:30 PM EDT Clinical Support [address] [address] Cindy Mcdonnell RN Gender dysphoria 05/14/2025 Results Follow-Up [address] [address] Ariadna Tristan MD Testosterone, Total, males (Adult), IA, Estradiol 05/14/2025 Travel 05/07/2025 Patient Outreach [address] [address] Ariadna Tristan MD Care Management (C3CM- f/u call) 04/30/2025 2:00 PM EDT Clinical Support [address] [address] Gely Willis, RN Gender dysphoria 04/30/2025 Travel 04/25/2025 Patient Outreach [address] [address] Ariadna Tristan MD Care Coordination ([facility] f/u) from Last 3 Months Immunizations Immunization Administration Dates Next Due DTaP 07/16/2005, 2,06/02/2001,04/13 [...] Sign Reading Time Taken Comments Blood Pressure 96/61 06/14/2025 11:03 AM EDT Pulse 80 06/14/2025 11:03 AM EDT Temperature 35.9 C (96.6 F) 06/14/2025 11:03 AM EDT Respiratory Rate 20 06/14/2025 11:03 AM EDT Oxygen Saturation 98% 06/14/2025 11:03 AM EDT Inhaled Oxygen Concentration - - Weight 55 kg (121 lb 3.2 oz) 06/14/2025 11:03 AM EDT Height 172.1 cm (5' 7.75 ) 11/23/2024 10:[address] Body Mass Index 18.56 11/23/2024 10:13 AM EST Plan of Treatment Upcoming Encounters Date Type Department Care Team (Late st Contact Info) Description 08/07/2025 1:00 PM EDT Clinical Support [facility] [address] [place] [address] 01/16/2026 8:00 AM EDT Office Visit [facility] [address] [place] [address] Joanna Gonzalez [address] [place] [address] Health Maintenance Due Date Last Done Comments Pneumococcal Vaccine: Pediatrics (0 to 5 Years) and At-Risk Patients (6 to 49) Years (1 of 1 - PPSV23) 2006 07/16/2005, 07/14/2001, 04/13/2001, Additional history exists Dental Prophylaxis 04/22/2021 10/21/2020, 0 04/11/2018, 04/30/2014, Additional history exists DTaP/Tdap/Td Vaccines (7 - Td or Tdap) 06/10/2022 06/10/2012, 07/16/2005, 05/17/2002, Additional history exists Depression Screening 05/31/2025 05/31/2024, 05/31/20 COVID-19 Vaccine ( season) 2025 Influenza Vaccine (#1) 2025 6, 07/12/2015, 07/20/2014, Additional history exists SDOH Screening 11/13/2025 11/13/2024 Alcohol/Substance Use Screening 11/23/2025 11/23/2024 Dental Oral Exam 01/10/2026 07/12/2025, , 04/11/2018, Additional history exists Disability Screening 02/27/2026 02/27/2025 Family Planning (PISQ) 06/14/2026 06/14/2025 Tobacco Screening 07/12/2026 07/12/2025 Dental X-Ray: Bitewings 07/13/2026 07/12/20 25, 10/21/2020, 04/11/2018, Additional history exists Dental X-Ray: Full Mouth 07/13/2028 025, 04/11/2018, 10/27/2013 Zoster Vaccines (1 of 2) 2050 RSV Patients and Patients Aged 60 years or older (1 - 1-dose 75+ series) 2075 HIB Vaccines Completed 01/05/2002, 05/09, 04/13/2001, Additional history exists IPV Vaccines Completed 12/29/2005, 06/2002, 04/13/2001, Additional history exists Hepatitis A Vaccines Completed 06/22/2008, 08/13/20 07 HPV Vaccines Completed 07/20/2014, 02/06, 06/29/2013 Meningococcal Vaccine Completed 05/06/2017, 013 Hepatitis B Vaccines Completed 11/09/2023, 07/14/2001, 2000, Additional history exists HIV Screening Completed 06/12/2025, 02/06, 02/21/2025, Additional history exists Hepatitis C Screening Completed 06/12/2025 , 02/21/2025, 02/21/2025, Additional history exists Meningococcal B Vaccine Aged Out No l onger eligible based on patient's age to complete this topic RSV under 20 months Aged Out No longe r eligible based on patient's age to complete this topic Rotavirus Vaccines Aged Out No longer eligible based on patient's age to complete this topic Procedures Procedure Name Priority Date/Time Associated Diagnosis Comments CASE PRESENTATION, DETAILED AND EXTENSIVE TREATMENT PLANNING Routine 07/12/2025 1:30 PM EDT INTRAORAL - COMPLETE SERIES OF RADIOGRAPHIC IMAGES Routine 07/12/2025 1:30 PM EDT PERIODIC ORAL EVALUATION - ESTABLISHED PATIENT Routine 07/12/2025 1:30 PM EDT POCT RAPID STREP A Routine 06/14/2025 11 :22 AM EDT Sore throat HIV ANTIBODY/ANTIGEN ([place] DPH) Routine 06/12/2025 HEPATITIS C ANTIBODY ([place] DPH) Routine 06/12/2025 SYPHILIS ABS ([place] DPH) Routine 06/12/2025 CHLAMYDIA/GONORRHEA - URINE ([place] DPH) Routine 06/12/2025 CHLAMYDIA/GONORRHEA THROAT SWAB ([place] DPH) Routine 06/12/2025 CHLAMYDIA/GONORRHEA RECTAL SWAB ([place] DPH) Routine 06/12/2025 HEMATOXYLIN AND EOSIN STAIN Routine 05/28/2025 12:52 PM EDT ESTRADIOL Routine 05/03/2025 12:13 PM EDT Gender dysphoria TESTOSTERONE, TOTAL, MALES (ADULT), IA Routine 05/03/2025 12:13 PM EDT Gender dysphoria PROPHYLAXIS - ADULT Routine 10/21/2020 1 2:00 AM EST from Last 3 Months or Most Recently Relevant to Health Maintenance Results * POCT rapid strep A manually resulted (06/14/2025 11:22 AM EDT) Rapid Strep A Screen Negative Negative, None Detected QC Media Lot # [id number] Lot# Expiration Date [id number] Swab 06/14/2025 11:2 2 AM EDT Ariadna Tristan MD POINT OF CARE TEST ENTER/E DIT ORDERABLES Final Result * Chlamydia/Gonorrhea, Rectal Swab ([place] DPH) (06/12/2025) Chlamydia Rectal Swab Negative Negative, Indeterminate, None Detected, Invalid, Specimen unsatisfactory for evaluation, 2+ Gonorrhea Rectal Swab Negative Negative, Indeterminate, None Detected, Invalid, Specimen unsatisfactory for evaluation, 2+ Swab 06/12/2025 [facility] Provider MD LAB MICROBIOLOGY - GENERA L ORDERABLES Final Result * Chlamydia/Gonorrhea Throat Swab ([place] DPH) (06/12/2025) Chlamydia Throat Swab Negative Gonorrhea Throat Swab Negative Swab 06/12/2025 Result [facility] Provider MD LAB MICROBIOLOGY - GENERA L ORDERABLES Final Result * Chlamydia/Gonorrhea, Urine ([place] DPH) (06/12/2025) Pathologist [facility] Chlamydia, Urine Negative Negative, Indeterminate, None Detected, Invalid, Specimen unsatisfactory for evaluation, Weakly Positive, 2+ Gonorrhea, Urine Negative Negative, Indeterminate, None Detected, Invalid, Specimen unsatisfactory for evaluation, Weakly Positive, 2+ Urine 06/12/2025 [facility] Provider MD LAB URINE ORDERABLES Bina l Result * Syphilis Antibodies (DPH) (06/12/2025) Syphilis Abs Nonreactive Borderline, Nonreactive, Weakly Reactive, Inconclusive, Specimen unsatisfactory for evaluation Blood Venous blood specimen / Unknown 06/12/2025 [facility] Provider MD LAB BLOOD ORDERABLES Bina l Result * Hepatitis C Antibody ([place] DPH) (06/12/2025) Hepatitis C Ab Nonreactive Blood 06/12/2025 [facility] Provider MD LAB BLOOD ORDERABLES Bina l Result * HIV Ab/Ag ([place] DPH) (06/12/2025) HIV Ag/Ab Nonreactive Blood 06/12/2025 Result [facility] MD LAB BLOOD ORDERABLES Bina l Result * Hematoxylin and Eosin Stain (05/28/2025 12:52 PM EDT) 05/28/2025 12:5 2 PM EDT 05/28/2025 1:46 PM EDT Narrative [facility] - 05/29/2025 2:44 PM EDT ----- ------- Name: Juana June Age/Sex: 24/M : 2000 Unit#: [id number] Attend Dr: Eileen Mcgowan MD Re05/28/25 Status: [facility] Location: [facility] Disch: ----- ------- SPEC : [id number] RECD: 05/28/25 STATUS: NII HARRISON NUM: [id number] FRANCY: 05/28/25-[address] [facility] [address]: Eileen Mcgowan MD ENTERED: 05/28/25-5993 SP TYPE: Surgical OTHR DR: Ariadna Tristan MD ORDERED: HE Stain/, Gross Micro L4/9, IHC, Special st. 2/, H. pylori, AB/PAS/3 Diagnosis A. Small bowel, ulcer, biopsy: Focal active enteritis with associated submucosal granulation tissue; preserved villous architecture and no increased intraepithelial lymphocytes seen. B. Stomach, antrum, biopsy: Gastric antral mucosa with moderate chronic inactive gastritis; negative for Helicobacter pylori, intestinal metaplasia and dysplasia. C. Stomach, body, biopsy: Gastric body mucosa within normal limits; negative for Helicobacter pylori, intestinal metaplasia and dysplasia. D. Colon, cecum, biopsy: Colonic mucosa with a single mucosal granuloma; negative for active, chronic or microscopic colitis. E. Colon, ascending, biopsy: Active colitis, patchy, with mild activity. F. Colon, transverse, biopsy: Colonic mucosa within normal limits; negative for active, chronic or microscopic colitis. G. Colon, left side, biopsy: Colonic mucosa within normal limits; negative for active, chronic or microscopic colitis. H. Rectum, polypectomy: Hyperplastic polyp and incidental mucosal granuloma. I. Rectum, biopsy: Active colitis with mild activity and surface erosion. COMMENT: No dysplasia seen in any of the biopsies. Clinical History Pre-Op Dx: Crohn's Post-Op Dx: Small bowel, ulcer, gastritis, colitis, diverticulosis, colon polyp Microscopic Description A-I. Microscopic sections examined. No metaplastic changes are seen, supported by AB/PAS stains (A-C); no Helicobacter organisms are seen, supported by H. pylori immunostain (B). CONTINUED ON NEXT PAGE ----- ------- Name: Juana June Age/Sex: 24/M : 2000 Unit#: [id number] Attend Dr: Eileen Mcgowan MD Re05/28/25 Status: [facility] Location: [facility] Disch: ----- ------- SPEC : [id number] RECD: 05/28/25-1341 STATUS: NII JACKSandro NUM: [id number] FRANCY: 05/28/25-[address] [facility] [address]: Eileen Mcgowan MD ENTERED: 05/28/25-2571 SP TYPE: Surgical OTHR DR: Ariadna Tristan MD ORDERED: HE Stain/, Gross Micro L4/9, IHC, Special st. 2/, H. pylori, AB/PAS/3 Material Received A. Small bowel ulcer B. Gastric antrum bx C. Gastric body bx D. Cecum bx's, r/o Crohn's E. Ascending colon bx's, r/o Crohn's F. Transverse colon bx's, r/o Crohn's G. Left side colon bx's, r/o Crohn's H. Rectal polyp I. Rectum bx's, r/o Crohn's Gross Description Received in nine parts. Part A: Received in formalin labeled small bowel ulcers bx are three angeles-pink irregular tissue fragments ranging from 0.1-0.3 cm, submitted in toto in a cassette labeled A. Part B: Received in formalin labeled gastric antrum bx are two ireland-pink irregular tissue fragments measuring 0.1 and 0.3 cm, submitted in toto in a cassette labeled B. Part C: Received in formalin labeled gastric body bx are two ireland-pink rectangular tissue fragments each measuring 0.45 cm, submitted in toto in a cassette labeled C. Part D: Received in formalin labeled cecum bx's, rule out Crohn's are five ireland-ang[place] irregular tissue fragments ranging from 0.1-0.3 cm, submitted in toto in a cassette labeled D. Part E: Received in formalin labeled ascending colon bx, rule out Crohn's are two angeles- pink irregular and rectangular tissue fragments measuring 0.15 and 0.35 cm, submitted in toto in a cassette labeled E. Part F: Received in formalin labeled transverse colon bx is a 0.35 cm angeles-pink irregular tissue fragment, submitted in toto in a cassette labeled F. Part G: Received in formalin labeled left side colon bx's, rule out Crohn's are two angeles- pink rectangular tissue fragments measuring 0.3 and 0.45 cm, submitted in toto in a cassette labeled G. Part H: Received in formalin labeled rectal polyp is a 0.25 cm angeles-pink irregular tissue fragment, submitted in toto in a cassette labeled H. Part I: Received in formalin labeled rectum bx's, rule out Crohn's are two angeles-pink CONTINUED ON NEXT PAGE ----- ------- Name: Juana June Age/Sex: 24/M : 2000 Unit#: [id number] Attend Dr: Eileen Mcgowan MD Re05/28/25 Status: [facility] [place] [place] Location: [facility] Disch: ----- ------- SPEC : [id number] RECD: 07/ STATUS: NII HARRISON NUM: [id number] FRANCY: 05/28/25-[address] [facility] [address]: Eileen Mcgowan MD ENTERED: 05/28/257884 SP TYPE: Surgical OTHR DR: Ariadna Tristan MD ORDERED: HE Stain/, Gross Micro L4/9, IHC, Special st. 2/3, H. pylori, AB/PAS/3 Gross Description (Continued) irregular tissue fragments each measuring 0.25 cm, submitted in toto in a cassette labeled I. CEDS Special stains ordered and performed: AB/PAS on A-C; immunostain for H. pylori on B. IHC S/NG Disclaimer NOTE: Unless otherwise stated, all tissue is formalin-fixed and paraffin-embedded. Some or all of the immunohistochemical tests reported herein may have been developed and their performance characteristics determined by [facility]. They have not been cleared or approved by the U.S. Food and Drug Administration (FDA). However, the FDA has determined that such clearance or approval is not necessary. This laboratory is certified under the Clinical Laboratory Improvement Amendments of 1988 (CLIA) as qualified to perform high complexity clinical laboratory testing. Copies To: Ariadna Tristan MD [address] [address] Eileen Mcgowan MD [facility] [address] [place] [address] [phone] ----- ------- Signed (signature on file) Deisy Drummond MD 05/29/25 1444 ----- ------- END OF REPORT us Generic External Data Provider LAB BLOOD ORDERAB LES Final Result Performing Organization Address [facility] Co de Phone Number [facility] [address] [place] [address] [phone] * (ABNORMAL) Estradiol (05/03/2025 12:13 PM EDT) Pathologist [facility] Estradiol Ultra Sensitive 228(A) < OR = 29 pg/mL [facility] Comment:This test was [facility] and its analytical performancecharacteristics have been determined by [employer].It has not been cleared or approved by the FDA. This assayhas been validated pursuant to the CLIA regulations and isused for clinical purposes.THIS TEST WAS PERFORMED AT:[employer] [id number] [place] [address]ZTYJALE SCHROEDER MD,PHD,LUNA Blood Venous blood specimen / Unknown 05/03/2025 12:13 PM EDT 05/03/2025 12:13 PM EDT Ariadna Tristan MD LAB BLOOD ORDERABLES Final Result Performing Organization Address [facility] de Phone Number [facility] [address] [place] [phone] * (ABNORMAL) Testosterone, Total, males (Adult), [place] (05/03/2025 12:13 PM EDT) Testosterone, Total 32(A) 250 - 1100 ng/dL [facility] Comment:For additional infor lucius, please refer [email or web address].CrowdGather/faq/[email or web address](This link is being provided for informational/educational purposes only.)This test was developed and its analytical performancecharacteristics have been determined by [facility] [employer] [place], [place]. It hasnot been cleared or approved by the U.S. Food and DrugAdministration. This assay has been validated pursuantto the CLIA regulations and is used for clinicalpurposes.THIS TEST WAS PERFORMED AT:[id number] [place] [address]ODDSLDNADITYA CHAVEZ MD,PHD Blood Venous blood specimen / Unknown 05/03/2025 12:13 PM EDT 05/03/2025 12:13 PM EDT us Ariadna Tristan MD LAB BLOOD ORDERABLES Final Result [facility] [address] [place] [address] [phone] from Last [address] [place] [place] [address] C[facility] STAND ADULT Advance Directives Documents on File Type Date Recorded Patient Blog Writer Expl anation Advance Directives and Living Will 05/31/2024 Health Care Proxy 05/31/24 Care Teams Chief Client Officer Relationship Specialty Start Date End Date Azalea, MD Ariadna [address] [place] [phone] PCP - General Family Medicine 07/19/19 Eileen Mcgowan MD [address] [place] [address] Gastroenterology 04/27/25 Mohan Benson MD [address] [place] [address] Orthopaedic Surgery 06/07/25
--- OUTSIDE RECORDS SUMMARY | 2025-07-26 14:40 | XMS_ITS | Encounter Summary ---
Author Organization [employer] Address [address] [facility] 7 [place] [address] Care Team Providers Care Mental Hygiene Consultant Name Role Phone Ariadna Tristan MD Primary Care Provider [phone] Eileen Mcgowan MD Unavailable [phone] Mohan Benson MD Unavailable Reason for Visit * Reason Comments Med Refill Encounter Details Date Type Department Care Team (Late st Contact Info) Description 02/29/2024 Refill [facility] [address] [place] [address] Ariadna Tristan MD [address] [place] [address] Social History Tobacco Use Types Packs/Day Years [...] Description 08/07/2025 1:00 PM EDT Clinical Support [facility] [address] [place] [address] 01/16/2026 8:00 AM EDT Office Visit [facility] [address] [place] [address] Lisa, Joanna [address] [place] [address] documented as of this encounter Visit Diagnoses Not on filedocumented in this encounter Care Teams Mental Hygiene Consultant Relationship Specialty Start Date End Date Ariadna Tristan MD [address] [place] [address] PCP - General Family Medicine 07/19/19 Eileen Mcgowan MD [address] [place] [address] Gastroenterology 04/27/25 Mohan Benson MD [address] [place] [address] Orthopaedic Surgery 06/07/25 documented as of this encounter
--- OUTSIDE RECORDS SUMMARY | 2025-07-26 14:40 | XMS_ITS | Encounter Summary ---
Author Organization [facility] Address [address] [place] [phone] Phone Care Team Providers Care Herpetologist Name Role Phone Ariadna Tristan MD Primary Care Provi ashley Ariadna Tristan MD Primary Care Provi ashley Encounter Details Date Type Department Care Team (Late st Contact Info) Description 08/29/2019 Procedure [facility], [address] [address] Social History Tobacco Use Types Packs/Day Years [...] on filedocumented in this encounter Care Teams Herpetologist Relationship Specialty Start Date End Date Ariadna Tristan MD [address] [place] [address] PCP - General Family Medicine 08/28/19 04/28/22 Ariadna Tristan MD [address] [place] [address] PCP - General Family Medicine 04/29/22 Cristy Prather Philip Psychologist 05/31/19 documented as of this encounter Additional Source Comments The information contained in this document represents components of the legal health record. It is not the complete legal health record.[facility]
--- OUTSIDE RECORDS SUMMARY | 2025-07-26 14:40 | XMS_ITS | Clinical Summary ---
Author Organization [facility] Address [address] [facility] [address] [place] [phone] Phone Care Team Providers Care Shelf Filler Name Role Phone Ariadna Tristan MD Primary Care Provi ashley Allergies No known active allergies Medications acetaminophen (TYLENOL) 325 mg tablet Take 2 tablets (650 mg total) by mouth every 6 (six) hours as needed for mild pain or fever (For mild to moderate abdominal pain.). 30 tablet 9 Active spironolactone (ALDACTONE) 100 MG tablet Take 100 mg by mouth daily. Active dicyclomine (BENTYL) 10 MG capsule Take 1 capsule (10 mg total) by mouth 4 (four) times a day as needed (abdominal cramps). 10 capsule 4 Active Active Problems Problem Noted Date Diagnosed Date Crohn's disease of colon, with intestinal obstru ction 11/10/2023 SBO (small bowel obstruction) 11/08/2023 Malnutrition 03/22/2020 Anemia due to chronic kidney disease 08/30/2019 Crohn's disease without complication 08/29/2019 Assessment & Plan (08/29/2019 9:15 PM EDT): Received 2L NS in the ED. Morphine [...] is not improved he will get scoped. Assessment & Plan (08/29/2019 4:04 AM EDT): Pain consistent with Crohn's disease flare. The emergency department discussed the case with Dr. Benitez who requested MR enterography and oral prednisone. These will be ordered. We will provide IV and oral analgesia. Consult placed to pediatric gastroenterology. Exacerbation of Crohn's disease, unspecified com plication 08/29/2019 Inflammatory bowel disease 07/06/2019 Crohn's disease of both smal l and large intestine without complication 07/03/2018 Crohn's disease involving stomach 07/03/2018 Protein-calorie malnutrition 03/24/2018 Intestinal malabsorption 03/24/2018 Crohn's disease with complication 02/01/2018 GERD (gastroesophageal reflux disease) Assessment & Plan (08/29/2019 4:13 AM EDT): We will continue with oral PPI. Resolved Problems Problem Noted Date Diagnosed Date Resolved Date Abdominal pain 02/11/2018 08/29/2019 Failure to thrive in child or adolescent 02/01/2018 08/29/2019 Family History Medical History Relation Comments No Known Problems Father Unknown to the patient Other Mother She has everyt ynes wrong with her. Relation Status Comments Father Mother Alive Social History Tobacco Use Types Packs/Day Years [...] Job End Date Student at [employer] Not on file Not on file Not on file Last Filed Vital Signs Vital Sign Reading Time Taken Comments Blood Pressure 92/57 11/10/2023 12:10 PM EST Pulse 78 11/10/2023 12:10 PM EST Temperature 36.6 C (97.9 F) 11/10/2023 12:10 PM EST Respiratory Rate 16 11/09/2023 11:53 PM EST Oxygen Saturation 99% 11/10/2023 12:10 PM EST Inhaled Oxygen Concentration - - Weight 55.9 kg (123 lb 3.8 oz) 11/10/2023 9:00 A M EST Height 170.2 cm (5' 7.01 ) 11/10/2023 9:00 AM ES T Body Mass Index 19.3 11/10/2023 9:00 AM EST Plan of Treatment Health Maintenance Due Date Last Done Comments DEPRESSION SCREENING 2012 SMOKING Hx and SMOKELESS TOBACCO SCREENING 2013 HPV VACCINES (1 - 3-dose series) 2015 HIV ONE-TIME SCREENING (18-65 YEARS) 2018 Adult Td,Tdap Booster 06/10/2022 06/10/2012 POTASSIUM LEVEL 11/09/2024 11/09/2023, 01/0 11/2023, 11/08/2023, Additional history exists INFLUENZA VACCINE (#1) 2025 COVID-19 VACCINE ( season) 2025 HEPATITIS C SCREENING Completed 11/09/2023 HEPATITIS A VACCINES Aged Out No long er eligible based on patient's age to complete this topic HIB VACCINES Aged Out No longer eligi ble based on patient's age to complete this topic MENINGOCOCCAL VACCINES (ACWY) Aged Out No longer eligible based on patient's age to complete this topic MENINGOCOCCAL VACCINES (B) Aged Out N o longer eligible based on patient's age to complete this topic PNEUMOCOCCAL VACCINES (0-49 years) Aged Out No longer eligible based on patient's age to complete this topic Medical Devices Not on file Procedures Procedure Name Priority Date/Time Associated Diagnosis Comments HEPATITIS C ANTIBODY, QUALITATIVE Routine 11/09/2023 5:40 AM EST BASIC METABOLIC PANEL Routine 11/09/2023 5:40 AM EST from Last 3 Months or Most Recently Relevant to Health Maintenance Results * Hepatitis C antibody, qualitative (11/09/2023 5:40 AM EST) HCV ANTIBODY Negative Negative [facility] Comment:Test Methodology [facility] [id number] Blood 11/09/2023 5:40 AM EST 11/09/2023 6:00 AM EST Nima Vega DO LAB BLOOD ORDERABLES Final Result [facility] [address] [place] [address] * (ABNORMAL) Basic metabolic panel (11/09/2023 5:40 AM EST) SODIUM 136 136 - 145 mmol/L [facility] CHLORIDE 102 95 - 106 mmol/L [facility] POTASSIUM 3.6 3.5 - 5.2 mmol/L [facility] CO2 24 20 - 31 mmol/L [facility] BUN 11 9 - 23 mg/dL [facility] CREATININE 0.77 0.50 - 1.30 mg/dL [facility] GLUCOSE 93 74 - 106 mg/dL [facility] CALCIUM 8.3(L) 8.7 - 10.4 mg/dL [facility] EGFR >120 >60 mL/min/1.7 3m2 [facility] Comment:Estimated glomerular filtration rate calculated using the CKD-EPI refit equation. ANION GAP 10 3 - 17 mmol/L [facility] Blood 11/09/2023 5:40 AM EST 11/09/2023 6:00 AM EST us Axel Lynne MD LAB BLOOD ORDERABLES Final Res ult [facility] [address] [place] [address] from Last 3 Months or Most Recently Relevant to Health Maintenance Insurance C3 ACO C3 ACO C3 ACO C3 ACO C3 ACO C3 ACO C3 ACO C3 [facility]CO [address] [facility] [address] [place] [address] [place] [address] C3 ACO Advance Directives For more information, please contact: [phone] (9AM - 5PM [facility], Wednesday-Wednesday) * Full Code (Latest Code Status on File) Date Activated Date Inactivated Comments 11/09/2023 7:16 AM Question Answer Comments Code Status Confirmed With: Patient * Full Code (Confirmed) Date Activated Date Inactivated Comments 08/29/2019 4:38 AM 08/30/2019 1:28 PM Question Answer Comments Code Status Confirmed With: Patient Care Teams Shelf Filler Relationship Specialty Start Date End Date Ariadna Tristan MD [address] [place] [address] PCP - General Family Medicine 04/29/22 Cristy Prather Donald Psychologist 05/31/19 Additional Source Comments The information contained in this document represents components of the legal health record. It is not the complete legal health record.[facility]
== END 2025-07-26 13:39 | disposition home or self-care (01) ==
PROVIDERS: Family Provider Family Medicine; Referring Provider Family Medicine; Visit Provider Internal Medicine Gastroenterology
DX: K21.9 Gastro-esophageal reflux disease without esophagitis (principal); K60.2 Anal fissure, unspecified; K50.90 Crohn's disease, unspecified, without complications
CPT/HCPCS: 99214

== ENCOUNTER → 2025-07-26 12:34 | Outpatient (BNVA) | payer MEDICAID, SELFPAY | PROVIDERS: Visit Provider Internal Medicine Gastroenterology | DX: K50.90 Crohn's disease, unspecified, without complications (principal); K21.9 Gastro-esophageal reflux disease without esophagitis; K60.2 Anal fissure, unspecified; Z28.29 Immunization not carried out because of patient decision for other reason | CPT/HCPCS: 99212 ==